=== PATIENT | female | born 1960 | race Caucasian/White ===

== ENCOUNTER → 2022-04-25 14:33 | Outpatient (CLI) | payer MEDICARE, SELFPAY ==
--- NOTE | 2022-04-25 14:40 | CT_ITS ---
FINAL REPORT CLINICAL HISTORY: H/O NICOTINE DEPENDENCE, smoker 1/2 ppd x 40 years. copd, emphysema. family hx of lung cancer FINDINGS: CTDI vol (mGy): 2.[address] images of the chest were obtained using the low-dose protocol for screening there are severe left coronary artery calcifications.. Bilateral axillary and mediastinal lymph nodes are seen which are nonspecific, favor reactive. On the lung window images, a 5 mm nodule seen is the right major fissure. Lungs are otherwise clear. IMPRESSION: 5 mm nodule near the right major fissure. Severe left coronary artery calcifications. Lung RADS category 2s. Recommend 12 month followup low-dose CT for further evaluation. Reviewed, Interpreted and Dictated by Mauricio Davidson III, MD Transcribed by Celina Bermudez Authenticated and [facility]
--- NOTE | 2022-04-25 14:41 | MM_ITS ---
PROCEDURE INFORMATION: Exam: Bilateral Screening 3D Mammography Exam date and time: 04/25/2022 3:18 PM Age: 61 years old Clinical indication: Screening examination. No family history of breast cancer. TECHNIQUE: Imaging protocol: Bilateral Screening tomosynthesis and 2D mammography including computer-aided detection (CAD) when performed. COMPARISON: No relevant prior studies available. If prior mammograms are provided, I am happy to add an addendum. FINDINGS: MAMMOGRAPHY: Breast composition: There are scattered areas of fibroglandular density. Mass: 0.8 cm oval masslike asymmetry in the right retro areolar region - only seen in the CC projection, which is related to the skin on the tomosynthesis sequences, CC frame 4 - at the inferior skin surface. A few scattered bilateral sub cm circumscribed oval masses. No suspicious mass. Architectural distortion: None. Calcifications: No suspicious calcifications. Asymmetric density: None. Skin thickening: None. Axillary adenopathy: None. IMPRESSION: See comment Probable skin finding related to the inferior skin surface of the right breast in the retroareolar region - if this does not correlate clinically, patient could be recalled for sonographic evaluation. Bilateral sub cm circumscribed masses which may be considered a benign finding on screening mammography. No mammographic evidence of malignancy. Annual screening is recommended unless otherwise clinically indicated. ASSESSMENT: BI-RADS Category 2: Benign
== END ==
PROVIDERS: PCP Family Medicine; Visit Provider Family Medicine
DX: Z87.891 Personal history of nicotine dependence (principal); Z12.2 Encounter for screening for malignant neoplasm of respiratory organs; Z12.31 Encounter for screening mammogram for malignant neoplasm of breast
CPT/HCPCS: 71271; 77063; 77067

== ENCOUNTER → 2022-05-07 15:16 | Outpatient (CLI) | payer MEDICARE, SELFPAY ==
[2022-05-07 17:14] LABS: Vitamin B12 238 pg/mL (239-931)
[2022-05-07 17:44] LABS: Ferritin 7.86 ng/ml (11.1-264)
== END ==
PROVIDERS: PCP Family Medicine; Visit Provider Specialist
DX: E83.10 Disorder of iron metabolism, unspecified (principal); R06.09 Other forms of dyspnea; R40.0 Somnolence
CPT/HCPCS: 36415; 82607; 82728

== ENCOUNTER → 2022-05-09 10:16 | Outpatient (CLI) | payer MEDICARE, SELFPAY ==
[2022-05-09 10:57] LABS: Basophils # 0.1 K/mm3 (0-0.2); Basophils % 1.1 % (0.1-2.0); Eosinophils # 0.2 K/mm3 (0.0-0.4); Eosinophils % 2.1 % (0.1-12.0); Hematocrit 39.4 % (37.0-47.0); Hemoglobin 12.4 g/dL (12.2-16.2); Lymphocytes # 1.8 K/mm3 (0.7-4.5); Lymphocytes % 23.3 % (10-50); Mean Corpuscular HGB Conc 31.3 g/dL (31.8-35.4); Mean Corpuscular Hemoglobin 31.7 pg (27.0-31.2); Mean Corpuscular Volume 101.3 fl (81-99); Mean Platelet Volume 7.7 fl (7.4-10.4); Monocytes # 0.5 K/mm3 (0.1-1.0); Monocytes % 6.4 % (1.7-9.3); Platelet Count 222 K/mm3 (142-424); Red Blood Count 3.89 M/mm3 (4.20-5.40); Red Cell Distribution Width 13.9 % (11.5-17.5); White Blood Count 7.5 K/mm3 (4.8-10.8)
[2022-05-09 12:02] LABS: Vitamin B12 236 pg/mL (239-931)
[2022-05-09 15:20] LABS: Ferritin 7.57 ng/ml (11.1-264)
== END ==
PROVIDERS: PCP Family Medicine; Visit Provider Specialist
DX: E83.10 Disorder of iron metabolism, unspecified (principal); R40.0 Somnolence
CPT/HCPCS: 36415; 82607; 82728; 83516; 85025; 86340

== ENCOUNTER → 2022-06-09 09:41 | Outpatient (CLI) | payer MEDICARE, SELFPAY ==
[2022-06-09 10:35] VITALS: PULSE 58; PULSE 62
== END ==
PROVIDERS: PCP Family Medicine; Visit Provider Internal Medicine Pulmonary Disease
DX: R06.09 Other forms of dyspnea (principal)
CPT/HCPCS: 94060; 94618; 94640; 94727; 94729

== ENCOUNTER → 2023-03-26 12:42 | Outpatient (CLI) | payer MEDICARE, SELFPAY ==
--- NOTE | 2023-03-26 13:27 | CT_ITS ---
FINAL REPORT TECHNIQUE: Axial CT images of the chest were obtained without contrast. Low-dose protocol was utilized. This study was performed with techniques to keep radiation doses as low as reasonably achievable (ALARA). Individualized dose reduction techniques using automated exposure control or adjustment of mA and/or kV according to the patient's size were employed. CLINICAL HISTORY: lung cancer screening current smoker 1ppd x45 years COMPARISON: 04/25/2022 FINDINGS: CT CHEST WITHOUT, LOW DOSE SCREENING CT Di Vol: 2.90 mGy DLP: 96.38 mGy*cm There are few small scattered mediastinal lymph nodes. Precarinal lymph node measures up to 1.5 cm. Findings are similar to the prior study. The heart size is normal. There is no pleural or pericardial effusion. The lung windows show a stable 5 mm nodule along the right major fissure best seen on image 41 of series 3. Limited images of the upper abdomen demonstrate no acute findings. IMPRESSION: Stable right major fissure nodule. LR Category 2: 12 month follow-up low-dose chest CT is recommended. Reviewed, Interpreted and Dictated by Jimenez Martin MD Transcribed by Taty Hartman Authenticated and [facility]
== END ==
PROVIDERS: PCP Family Medicine; Visit Provider Internal Medicine Pulmonary Disease
DX: F17.210 Nicotine dependence, cigarettes, uncomplicated (principal); R06.02 Shortness of breath; Z12.2 Encounter for screening for malignant neoplasm of respiratory organs
CPT/HCPCS: 71271; 94060

== ENCOUNTER → 2023-05-11 11:04 | Outpatient (CLI) | payer MEDICARE, SELFPAY ==
--- NOTE | 2023-05-11 11:13 | XR_ITS ---
FINAL REPORT CLINICAL HISTORY: LEFT SIDED LOW BACK PAIN FINDINGS: AP, lateral, and oblique views of the lumbar spine were obtained. There is no acute fracture. There is grade 2 anterolisthesis of L5 on S1. Alignment is otherwise normal. There is multilevel degenerative disc disease, most pronounced at L5-S1.. No acute paraspinal abnormality is identified. IMPRESSION: No acute osseous abnormalities lumbar spine. Reviewed, Interpreted and Dictated by Shania Gan MD Transcribed by Celina Bermudez Authenticated and [facility]
== END ==
PROVIDERS: PCP Family Medicine; Visit Provider Family Medicine
DX: M54.50 Low back pain, unspecified (principal)
CPT/HCPCS: 72110

== ENCOUNTER → 2023-06-04 14:52 | Outpatient (CLI) | payer MEDICARE, SELFPAY ==
--- NOTE | 2023-06-04 15:01 | MM_ITS ---
PROCEDURE INFORMATION: Exam: MG Bilateral Screening 3D Mammography Exam date and time: 06/04/2023 2:53 PM Age: 62 years old Clinical indication: Screening examination TECHNIQUE: Imaging protocol: Bilateral Screening tomosynthesis and 2D mammography including computer-aided detection (CAD) when performed. COMPARISON: MG MM DIG SCREENING MAMM BI W/CAD 04/25/2022 3:18 PM FINDINGS: MAMMOGRAPHY: Breast composition: There are scattered areas of fibroglandular density. Mass: None. Architectural distortion: None. Calcifications: No suspicious calcifications. Asymmetric density: None. Skin thickening: None. Axillary adenopathy: None. IMPRESSION: No mammographic evidence of malignancy. Annual screening is recommended unless otherwise clinically indicated. ASSESSMENT: BI-RADS Category 1: Negative
== END ==
PROVIDERS: PCP Family Medicine; Visit Provider Family Medicine
DX: Z12.31 Encounter for screening mammogram for malignant neoplasm of breast (principal)
CPT/HCPCS: 77063; 77067

== ENCOUNTER 2023-07-30 08:44 | Outpatient (CLI) | payer MEDICARE, SELFPAY ==
--- NOTE | 2023-07-30 08:51 | US_ITS ---
FINAL REPORT CLINICAL HISTORY: ABNORMAL LIVER COMPARISON: None FINDINGS: Sonographic images of the right upper quadrant were obtained. The pancreas is partially obscured. The liver is slightly inhomogeneous in echotexture, which is likely related to focal fatty infiltration. The gallbladder has been surgically resected. There is no evidence of biliary ductal dilatation.The common duct measures 3 mm. Limited images of the right kidney are unremarkable. IMPRESSION: Gallbladder surgically resected without evidence of biliary ductal dilatation. Focal fatty infiltration of the liver. Reviewed, Interpreted and Dictated by Jimenez Martin MD Transcribed by Shirlene Smith Authenticated and [facility]
== END 2023-07-30 23:59 ==
LOC: RAD 08:45
PROVIDERS: PCP Family Medicine; Visit Provider Family Medicine
DX: K76.89 Other specified diseases of liver (principal)
CPT/HCPCS: 76705

== ENCOUNTER 2023-08-21 14:30 | Outpatient (CLI) | payer MEDICARE, SELFPAY ==
[2023-08-21 15:41] LABS: Alanine Aminotransferase 86 U/L (12-78); Albumin/Globulin Ratio 1.4 (1.1-1.8); Alkaline Phosphatase 90 U/L (38-126); Anion Gap 9.9 mEq/L (5-15); Aspartate Amino Transferase 71 U/L (14-36); Bilirubin,Total 0.7 mg/dl (0.2-1.3); Blood Urea Nitrogen 12 mg/dl (7-17); Calcium 9.2 mg/dl (8.4-10.2); Carbon Dioxide 27 mmol/L (22.0-30.0); Chloride 108 mmol/L (98-107); Estimated Glomerular Filt Rate 56 ml/min (>60); GFR (African American) 68 ML/MIN (>60); Globulin 2.9 g/dL (1.3-3.2); Glucose 79 mg/dl (74-100); Potassium 4.9 mmoL/L (3.5-5.1); Sodium 140 mmol/L (136-145); Total Protein,Serum 6.9 g/dl (6.3-8.2)
== END 2023-08-21 23:59 ==
LOC: LAB.DROPOF 14:31
PROVIDERS: PCP Nurse Practitioner Family; Visit Provider Nurse Practitioner Family
DX: R74.8 Abnormal levels of other serum enzymes (principal)
CPT/HCPCS: 80053

== ENCOUNTER 2023-10-26 11:15 | Outpatient (CLI) | payer MEDICARE, SELFPAY ==
[2023-10-26 11:44] LABS: Basophils # 0.1 K/mm3 (0-0.2); Basophils % 0.9 % (0.1-2.0); Eosinophils # 0.2 K/mm3 (0.0-0.4); Hematocrit 41.6 % (37.0-47.0); Hemoglobin 13.4 g/dL (12.2-16.2); Lymphocytes % 34.2 % (10-50); Mean Corpuscular HGB Conc 32.3 g/dL (31.8-35.4); Mean Corpuscular Hemoglobin 33.8 pg (27.0-31.2); Mean Corpuscular Volume 104.7 fl (81-99); Mean Platelet Volume 8.7 fl (7.4-10.4); Monocytes # 0.4 K/mm3 (0.1-1.0); Monocytes % 7.2 % (1.7-9.3); Neutrophils # 3.1 K/mm3 (1.8-7.8); Neutrophils % 54.8 % (37.0-80.0); Platelet Count 159 K/mm3 (142-424); Red Blood Count 3.98 M/mm3 (4.20-5.40); Red Cell Distribution Width 13.3 % (11.5-17.5); White Blood Count 5.7 K/mm3 (4.8-10.8)
[2023-10-26 11:52] LABS: Prothrombin Time 10.8 seconds (10.1-12.5)
[2023-10-26 12:19] LABS: Chloride 112 mmol/L (98-107)
[2023-10-26 12:20] LABS: Potassium 3.9 mmoL/L (3.5-5.1); Sodium 141 mmol/L (136-145)
[2023-10-26 12:22] LABS: Alanine Aminotransferase 29 U/L (12-78); Alkaline Phosphatase 63 U/L (38-126); Anion Gap 3.9 mEq/L (5-15); Aspartate Amino Transferase 36 U/L (14-36); Bilirubin,Total 0.7 mg/dl (0.2-1.3); Blood Urea Nitrogen 10 mg/dl (7-17); Carbon Dioxide 29 mmol/L (22.0-30.0); Estimated Glomerular Filt Rate 63 ml/min (>60); GFR (African American) 77 ML/MIN (>60); Iron 99 ug/dL (37-170)
[2023-10-26 12:23] LABS: Albumin Level 3.3 g/dl (3.5-5.0); Albumin/Globulin Ratio 1.2 (1.1-1.8); Globulin 2.7 g/dL (1.3-3.2); Glucose 87 mg/dl (74-100)
[2023-10-26 12:32] LABS: Total Iron Binding Capacity 269 ug/dL (265-497)
[2023-10-26 12:58] LABS: Ferritin 47.5 ng/ml (11.1-264)
[2023-10-26 13:20] LABS: Gamma Glutamyl Transpeptidase 23 U/L (12-43)
[2023-10-27 08:33] LABS: AFP, Tumor Marker <1.8 ng/mL (0.0-9.2); Alpha-1-Antitrypsin 147 mg/dL (101-187); Ceruloplasmin 24.7 mg/dL (19.0-39.0); HBsAg Screen Negative (Negative); HCV Ab Non Reactive (Non Reactive); Hep A Ab, IGM Negative (Negative); Hep B Core Ab, IgM Negative (Negative)
[2023-10-27 14:46] LABS: Endomysial IgA Antibody Negative (Negative); Mitochondrial (M2) Antibody <20.0 Units (0.0-20.0)
[2023-10-27 15:10] LABS: Deamidated Gliadin Abs, IgA 6 units (0-19); Deamidated Gliadin Abs, IgG 4 units (0-19); Tissue Transglutaminase IgA Ab 2 U/mL (0-3); Tissue Transglutaminase IgG Ab 4 U/mL (0-5)
[2023-10-29 10:42] LABS: Reticulin IgA Antibody Negative titer (Neg:<1:2.5)
[2023-11-03 16:12] LABS: Liver-Kidney Microsomal Ab 1.4 Units (0.0-20.0)
== END 2023-10-26 23:59 | disposition home or self-care (01) ==
LOC: LAB 11:16
PROVIDERS: PCP Nurse Practitioner Family; Visit Provider Nurse Practitioner
DX: R74.8 Abnormal levels of other serum enzymes (principal); E83.10 Disorder of iron metabolism, unspecified; D64.9 Anemia, unspecified; R10.11 Right upper quadrant pain; R93.2 Abnormal findings on diagnostic imaging of liver and biliary tract
CPT/HCPCS: 36415; 80053; 82103; 82105; 82390; 82728; 82977; 83516; 83540; 83550; 85025; 85610; 86038; 86255; 86256; 86376

== ENCOUNTER 2023-11-10 13:18 | Outpatient (CLI) | payer MEDICARE, SELFPAY ==
[2023-11-10 13:33] LABS: Hemoglobin A1C 5.1 % (4.0-6.0)
[2023-11-10 13:58] LABS: Chol/HDL Ratio 3.8 (1-3.5); Cholesterol 180 mg/dl (140-200); HDL Cholesterol 47 mg/dl (40-60); Triglycerides 188 mg/dl (30-150); VLDL Cholesterol 38 mg/dL (0-40)
[2023-11-10 14:16] LABS: Free T4 (Free Thyroxine) 1.26 ng/dl (0.78-2.19)
[2023-11-10 14:30] LABS: Thyroid Stimulating Hormone 1.01 uIU/mL (0.465-4.68)
[2023-11-10 14:49] LABS: Vitamin B12 468 pg/mL (239-931)
[2023-11-10 16:31] LABS: Ferritin 47.8 ng/ml (11.1-264)
[2023-11-11 09:09] LABS: Triiodothyronine (T3) Free 2.6 pg/mL (2.0-4.4)
[2023-11-13 19:45] LABS: Intrinsic Factor Abs, Serum 16.8 AU/mL (0.0-1.1)
== END 2023-11-10 23:59 | disposition home or self-care (01) ==
LOC: LAB.DROPOF 13:19
PROVIDERS: PCP Nurse Practitioner Family; Visit Provider Nurse Practitioner Family
DX: E03.9 Hypothyroidism, unspecified (principal); E78.5 Hyperlipidemia, unspecified; R73.9 Hyperglycemia, unspecified; M81.0 Age-related osteoporosis without current pathological fracture; R82.90 Unspecified abnormal findings in urine; D50.9 Iron deficiency anemia, unspecified; Z79.899 Other long term (current) drug therapy
CPT/HCPCS: 80061; 82306; 82607; 82728; 83036; 84439; 84443; 84481; 86340; 87086; 87088; 87186

== ENCOUNTER 2023-11-18 09:08 | Outpatient (CLI) | payer MEDICARE, SELFPAY ==
--- NOTE | 2023-11-18 09:09 | CT_ITS ---
FINAL REPORT TECHNIQUE: Axial CT images of the abdomen and pelvis were obtained before and after the administration of IV contrast. This study was performed with techniques to keep radiation doses as low as reasonably achievable (ALARA). Individualized dose reduction techniques using automated exposure control or adjustment of mA and/or kV according to the patient''s size were employed. CLINICAL HISTORY: eval morph liver and spleen COMPARISON: None FINDINGS: Abdomen: The lung bases are clear. The heart is normal in size. The liver has an unremarkable appearance, without evidence of mass or biliary duct dilatation. Postcholecystectomy. The spleen is unremarkable. No adrenal masses present. The pancreas has an unremarkable appearance. The kidneys enhance normally. There is no evidence of mass or hydronephrosis. The aorta is normal in caliber. There is no free fluid or adenopathy. No mass or abnormal fluid collection is seen. There are scattered sigmoid diverticula. Precontrast images demonstrate no evidence of nephrolithiasis. Pelvis: The appendix is not well visualized. Bladder wall thickening is likely inflammatory. There is no evidence of mass or adenopathy. There is no evidence of bowel obstruction. There are bilateral L5 pars defects with grade 2 anterolisthesis of L5 and S1. IMPRESSION: Likely inflammatory bladder wall thickening. Unremarkable liver and spleen. Reviewed, Interpreted and Dictated by Mauricio Davidson III, MD Transcribed by Taty Hartman Authenticated and [facility]
[2023-11-18] MEDS: SODIUM CHLORIDE 0.9% 10ML SYR (RAD ONLY) 10 ML IV (09:36)
[2023-11-18] MEDS: IOPAMIDOL-370 (76%);100ML BOTTLE 75 ML IV (09:36)
== END 2023-11-18 23:59 | disposition home or self-care (01) ==
LOC: RAD 09:09
PROVIDERS: PCP Nurse Practitioner Family; Visit Provider Nurse Practitioner
DX: R74.8 Abnormal levels of other serum enzymes (principal); E83.10 Disorder of iron metabolism, unspecified; R10.11 Right upper quadrant pain
CPT/HCPCS: 74178; Q9967

== ENCOUNTER 2023-11-24 13:57 | Outpatient (CLI) | payer MEDICARE, SELFPAY ==
--- NOTE | 2023-11-24 13:57 | MR_ITS ---
FINAL REPORT CLINICAL HISTORY: dizziness WHEN TURNING HEAD O THE RIGHT WHEN LAYING DOWN. FALL AND LANDED ON LEFT SIDE OF FACE. FINDINGS: Multi planar MR imaging was obtained through the brain without contrast. The midline structures appear intact. There is no evidence of Chiari malformation. There is mild atrophy which is greater than expected for patient's age. On diffusion-weighted images there is no evidence of restricted diffusion. There is mild mucoperiosteal thickening in the paranasal sinuses consistent with chronic sinusitis.. The seventh and eighth nerve root complexes are intact. IMPRESSION: Atrophy, greater than expected for patient's age. Chronic sinusitis. Reviewed, Interpreted and Dictated by Jimenez Martin MD Transcribed by Yuliana Ivey Authenticated and . [facility]
== END 2023-11-24 23:59 | disposition home or self-care (01) ==
LOC: RAD 13:57
PROVIDERS: PCP Nurse Practitioner Family; Visit Provider Nurse Practitioner Family
DX: R42 Dizziness and giddiness (principal); H93.12 Tinnitus, left ear
CPT/HCPCS: 70551

== ENCOUNTER 2023-12-14 09:10 | Outpatient (CLI) | payer MEDICARE, SELFPAY ==
--- NOTE | 2023-12-14 09:10 | XR_ITS ---
FINAL REPORT CLINICAL HISTORY: osteoporosis COMPARISON: None FINDINGS: Using L1-4, the bone mineral density of the spine is 0.825 g/cm2, corresponding to T-score of -2.0 which is consistent with low bone density. Using the left hip, the bone mineral density of the femoral neck is 0.599 g/cm2, corresponding to a T-score of -2.3 which is consistent with low bone density. Using the right hip, the bone mineral density of the femoral neck is 0.617 g/cm2, corresponding to a T-score of -2.1 which is consistent with low bone density. FRAX 10 year fracture risk is 3.2% for a hip fracture and 33% for a major osteoporotic fracture. NOTE: T-score: Standard deviation compared with peak bone mass of young adult mean. *Following the recommendations of the International Society of Bone densitometry, classification of hip BMD is based on the lower of two T-scores; total hip or femoral neck. IMPRESSION: Diminished bone mineral density consistent with low bone density. Reviewed, Interpreted and Dictated by Mauricio Davidson III, MD Transcribed by Taty Hartman Authenticated and . [facility]
== END 2023-12-14 23:59 | disposition home or self-care (01) ==
LOC: RAD 09:10
PROVIDERS: PCP Nurse Practitioner Family; Visit Provider Nurse Practitioner Family
DX: M81.0 Age-related osteoporosis without current pathological fracture (principal)
CPT/HCPCS: 77080

== ENCOUNTER 2024-01-27 12:07 | Outpatient (CLI) | payer MEDICARE, SELFPAY ==
--- NOTE | 2024-01-27 12:26 | XR_ITS ---
FINAL REPORT CLINICAL HISTORY: right shoulder pain, decreased ROM FINDINGS: Right shoulder THREE VIEW FINDINGS: Three views show no evidence of an acute, displaced fracture or dislocation of the visualized bony architecture. The joint spaces appear normal. Osteopenia is noted. IMPRESSION: Unremarkable exam. Authenticated and [facility]
--- NOTE | 2024-01-27 12:26 | XR_ITS ---
FINAL REPORT CLINICAL HISTORY: pain FINDINGS: Right hand 2nd digit THREE VIEW FINDINGS: Three views show no evidence of an acute, displaced fracture or dislocation of the visualized bony architecture. Advanced DIP degenerative joint disease is present. Moderate degenerative changes of the PIP joint are present. Osteopenia is noted. There is no erosion. IMPRESSION: Degenerative changes. No acute bony abnormality . Authenticated and [facility]
[2024-01-27 13:23] LABS: Erythrocyte Sedimentation Rate 39 mm/hr (0-30)
[2024-01-27 13:56] LABS: Uric Acid 7.1 mg/dl (2.5-6.2)
[2024-01-29 09:46] LABS: RA Latex Turbid. <10.0 IU/mL (<14.0)
[2024-02-22 15:33] LABS: Antinuclear Antibodies, IFA POSITIVE
== END 2024-01-27 23:59 | disposition home or self-care (01) ==
LOC: LAB 12:09
PROVIDERS: PCP Nurse Practitioner Family; Visit Provider Nurse Practitioner Family
DX: M25.50 Pain in unspecified joint (principal); M25.511 Pain in right shoulder; M25.611 Stiffness of right shoulder, not elsewhere classified; M79.644 Pain in right finger(s)
CPT/HCPCS: 36415; 73030; 73140; 84550; 85651; 86038; 86431

== ENCOUNTER 2024-02-04 11:07 | Day surgery (SDC) | payer MEDICARE, SELFPAY ==
[2024-02-02 15:55] VITALS: BMI 31.1
[2024-02-04 11:27] VITALS: BP 139/85; PULSE 77; RESP 18; TEMP 36.6; O2SAT 97; BMI 31.1
--- NOTE | 2024-02-04 11:42 | P.PNANES_ITS ---
[facility] Disclaimer: The information contained in this section may have been updated after the patient was seen, as this information can be updated by other users. Medical History History of gout History of osteoporosis History of myocardial infarction Leaky heart valve Smoking greater than 30 pack years Lung nodule Allergic rhinitis Pulmonary emphysema Allergic rhinitis COPD mixed type Pulmonary emphysema Tobacco abuse disorder Tobacco abuse counseling Screening for lung cancer Dyspnea on exertion History of sleep apnea Daytime somnolence Lung nodule seen on imaging study COPD mixed type Dyspnea on exertion Smoking greater than 30 pack years Surgical History History of ovarian resection History of esophagogastroduodenoscopy (EGD) History of colonoscopy History of cardiac cath History of cholecystectomy Family History Mother Emphysema of lung Grandmother Cancer Leukemia Grandfather Cancer Esophageal Ca Social History Smoking Status: Former smoker smoking status stop date: 01/30/2023 alcohol intake: former substance use type: denies use current occupational status: disabled Travel in the last 8 weeks: None caffeine: Yes high-fat food intake: 3 or more times/day physical activity: walking do you feel safe at home: Yes victim of physical abuse: No victim of emotional abuse: No victim of sexual abuse: No would you like helpful sources: No [facility] Anesthesia Checklist Patient Identification Patient Identification: Arm Band Structural Data Admitted From: Home Planned Operative Procedure/s: EGD Consent for Planned Operative Procedure(s) Verified: Yes Verified Documents: Surgical Consent and History and Physical NPO Status Verified Time NPO: 00:00 Additional verifications Anesthesia Reactions: No Airway Assessment Mallampati Score:: Class II C-Spine Mobility Assessed: Yes TMJ Mobility Assessed: Yes Dentition: Good Dentition (upper dentures removed) Neurological Assessment Level of Consciousness: Awake, Alert and Appropriate Anesthesia Plan Anesthesia Risk discussed: Yes Anesthesia Plan: Verified ASA Class: III Anesthesia Type: MAC
[2024-02-04 11:43] VITALS: O2SAT 97
[2024-02-04 12:00] VITALS: BP 121/71; PULSE 76; RESP 16; TEMP 36.9; O2SAT 96
[2024-02-04 12:10] VITALS: BP 120/77; PULSE 78; RESP 18; O2SAT 96
[2024-02-04 12:20] VITALS: BP 128/79; PULSE 69; RESP 18; O2SAT 96
[2024-02-04 12:30] VITALS: BP 123/83; PULSE 69; RESP 18; O2SAT 96
--- NOTE | 2024-02-18 08:38 | HMH.SCOPE ---
Procedure: Date: 02/04/24 Patient Date of :: 1960 Procedure Performed:: EGD, biopsies, dilation Indications:: Dyspepsia, dysphagia Performing Provider:: Shawnee Terrazas MD Referring Provider:: Samantha Terrazas APRN Sedation:: Propofol Procedure:: The gastroscope was gently passed through the incisoral orifice into the oral cavity and under direct visualization the esophagus was intubated. The endoscope was passed down the esophagus, through the stomach, and into the duodenum. Color, texture, mucosa, and anatomy of the esophagus, stomach, and duodenum were carefully examined with the scope. Findings:: Oropharynx: normal Esophagus: normal, emperic dilation performed with 58F bougie dilator EG Junction: intact at 40 cm Cardia: normal Fundus: normal Body: normal Antrum: normal with mild gastritis, biopsied Duodenal bulb: normal Duodenum (second and third portion): normal Impression: Nonspecific antral gastritis Dysphagia treated with bougie dilation Specimens:: Gastric Recommendations:: Consider repeat dilation in the future if symptoms recur Complications:: None Estimated blood obtained (mL): 0 Colonoscopy Component Colonoscopy Component Was a colonoscopy performed during today's procedure?: No
== END 2024-02-04 12:30 | disposition home or self-care (01) ==
PROVIDERS: PCP Nurse Practitioner Family; Visit Provider Internal Medicine Gastroenterology
PROC: 0DJ08ZZ Inspection of Upper Intestinal Tract, Via Natural or Artificial Opening Endoscopic (ICD-10-PCS; CPT 43235; principal; 2024-02-04 12:00)
DX: R10.13 Epigastric pain (principal); R13.10 Dysphagia, unspecified; K29.50 Unspecified chronic gastritis without bleeding
CPT/HCPCS: 43239; 43450; 88305

== ENCOUNTER 2024-02-08 13:02 | Outpatient (CLI) | payer MEDICARE, SELFPAY ==
[2024-02-08 14:49] LABS: Thyroid Stimulating Hormone 5.83 uIU/mL (0.465-4.68)
[2024-02-09 08:54] LABS: Triiodothyronine (T3) Free 2.4 pg/mL (2.0-4.4)
== END 2024-02-08 23:59 | disposition home or self-care (01) ==
LOC: LAB.DROPOF 13:02
PROVIDERS: PCP Nurse Practitioner Family; Visit Provider Nurse Practitioner Family
DX: E03.9 Hypothyroidism, unspecified (principal); M25.50 Pain in unspecified joint; M10.9 Gout, unspecified; R42 Dizziness and giddiness
CPT/HCPCS: 84443; 84481; 84550

== ENCOUNTER 2024-02-12 08:02 | Outpatient (CLI) | payer MEDICARE, SELFPAY ==
--- NOTE | 2024-02-12 08:03 | MR_ITS ---
FINAL REPORT CLINICAL HISTORY: Right shoulder pain, decreased ROM COMPARISON: None FINDINGS: Multiplanar MR imaging of the right shoulder was performed without contrast. There is a focal tear of the anterior footprint of the supraspinatus tendon measuring 8 mm in AP dimension. There is a partial tear of the articular surface of the infraspinatus tendon less than 50% tendon thickness. Mild AC joint arthropathy is noted. A small amount of fluid is seen in the subacromial/subdeltoid bursa. The glenoid labrum is intact. The long head of the biceps tendon is intact. A small glenohumeral joint effusion is seen. There is no evidence of fracture or dislocation. The musculature is intact. Subchondral cysts are noted in the superior humeral head. IMPRESSION: Focal tear supraspinatus tendon. Partial tear infraspinatus tendon. Small amount of fluid in the bursa. Small joint effusion. Subchondral cysts in the superior humeral head. Reviewed, Interpreted and Dictated by Mauricio Davidson III, MD Transcribed by Taty Hartman Authenticated and [facility]
== END 2024-02-12 23:59 | disposition home or self-care (01) ==
LOC: RAD 08:03
PROVIDERS: PCP Nurse Practitioner Family; Visit Provider Nurse Practitioner Family
DX: M25.611 Stiffness of right shoulder, not elsewhere classified (principal); M25.511 Pain in right shoulder
CPT/HCPCS: 73221

== ENCOUNTER 2024-02-25 09:30 | Outpatient (CLI) | payer MEDICARE, SELFPAY ==
[2024-02-25 09:45] VITALS: BP 109/69; PULSE 62; RESP 16; O2SAT 97
[2024-02-25] MEDS: DENOSUMAB 60 MG/ML SYRINGE SQ (09:45)
== END 2024-02-25 10:00 | disposition home or self-care (01) ==
PROVIDERS: PCP Nurse Practitioner Family; Visit Provider Nurse Practitioner Family
DX: M81.0 Age-related osteoporosis without current pathological fracture (principal)
CPT/HCPCS: 96372; J0897

== ENCOUNTER 2024-03-09 16:53 | Outpatient (CLI) | payer MEDICARE, SELFPAY ==
[2024-03-09 18:17] LABS: Alanine Aminotransferase 57 U/L (12-78); Albumin Level 3.8 g/dl (3.5-5.0); Albumin/Globulin Ratio 1.3 (1.1-1.8); Alkaline Phosphatase 69 U/L (38-126); Anion Gap 9.7 mEq/L (5-15); Aspartate Amino Transferase 56 U/L (14-36); Bilirubin,Total 0.5 mg/dl (0.2-1.3); Blood Urea Nitrogen 12 mg/dl (7-17); Calcium 9.1 mg/dl (8.4-10.2); Carbon Dioxide 27 mmol/L (22.0-30.0); Chloride 108 mmol/L (98-107); Estimated Glomerular Filt Rate 63 ml/min (>60); GFR (African American) 76 ML/MIN (>60); Glucose 58 mg/dl (74-100); Potassium 4.7 mmoL/L (3.5-5.1); Sodium 140 mmol/L (136-145); Total Protein,Serum 6.8 g/dl (6.3-8.2)
[2024-03-09 18:27] LABS: Free T4 (Free Thyroxine) 0.92 ng/dl (0.78-2.19)
[2024-03-09 18:32] LABS: T4 (Thyroxine) 10.9 ug/dl (5.53-11.0)
[2024-03-09 19:05] LABS: Vitamin B12 551 pg/mL (239-931)
[2024-03-09 19:31] LABS: Ferritin 44.3 ng/ml (11.1-264)
[2024-03-11 13:11] LABS: Triiodothyronine (T3) Free 2.3 pg/mL (2.0-4.4)
== END 2024-03-09 23:59 | disposition home or self-care (01) ==
LOC: LAB.DROPOF 16:53
PROVIDERS: PCP Nurse Practitioner Family; Visit Provider Nurse Practitioner Family
DX: R79.89 Other specified abnormal findings of blood chemistry (principal); E03.9 Hypothyroidism, unspecified; D64.9 Anemia, unspecified; K74.00 Hepatic fibrosis, unspecified
CPT/HCPCS: 80053; 82607; 82728; 84436; 84439; 84443; 84481

== ENCOUNTER 2024-03-28 12:43 | Outpatient (CLI) | payer MEDICARE, SELFPAY ==
--- NOTE | 2024-03-28 12:44 | CT_ITS ---
FINAL REPORT TECHNIQUE: Axial CT images of the chest were obtained without contrast. Low-dose protocol was utilized. This study was performed with techniques to keep radiation doses as low as reasonably achievable (ALARA). Individualized dose reduction techniques using automated exposure control or adjustment of mA and/or kV according to the patient's size were employed. CLINICAL HISTORY: lung cancer screening former smoker quit 1 year ago, 2ppd for 47 years hx emphysema COMPARISON: 03/26/2023 FINDINGS: CT CHEST WITHOUT, LOW DOSE SCREENING CT Di Vol: 2.90 mGy DLP: 94.55 mGy*cm There is no axillary, mediastinal, or hilar adenopathy. The heart size is normal. Advanced calcified plaque disease is noted of the left coronary vessels. There is no pleural or pericardial effusion. The lung windows show stable appearance of the right lung intrafissural nodule which likely represents a lymph node. No suspicious pulmonary lesions are identified. Limited images of the upper abdomen demonstrate no acute findings. IMPRESSION: LR Category 2S: 12 month follow-up low-dose chest CT is recommended per Fleischner criteria. Modifier S: Left coronary vessel calcified plaque disease. Reviewed, Interpreted and Dictated by Vadim Louise MD Transcribed by Taty Hartman Authenticated and [facility]
== END 2024-03-28 23:59 | disposition home or self-care (01) ==
LOC: RAD 12:44
PROVIDERS: PCP Nurse Practitioner Family; Visit Provider Internal Medicine Pulmonary Disease
DX: F17.210 Nicotine dependence, cigarettes, uncomplicated (principal)
CPT/HCPCS: 71271

== ENCOUNTER 2024-04-07 11:37 | Outpatient (CLI) | payer MEDICARE, SELFPAY ==
[2024-04-07 13:21] LABS: Cholesterol 126 mg/dl (140-200); HDL Cholesterol 42 mg/dl (40-60); Triglycerides 264 mg/dl (30-150); VLDL Cholesterol 53 mg/dL (0-40)
[2024-04-07 13:32] LABS: Direct LDL Cholesterol 44.02 mg/dL (100-129)
== END 2024-04-07 23:59 | disposition home or self-care (01) ==
LOC: LAB 11:44
PROVIDERS: PCP Nurse Practitioner Family
DX: I25.10 Atherosclerotic heart disease of native coronary artery without angina pectoris (principal); E78.2 Mixed hyperlipidemia; E78.5 Hyperlipidemia, unspecified
CPT/HCPCS: 36415; 80061

== ENCOUNTER 2024-05-05 08:15 | Outpatient (CLI) | payer MEDICARE, SELFPAY ==
--- NOTE | 2024-05-05 08:15 | CT_ITS ---
PROCEDURE INFORMATION: Exam: CT Maxillofacial Without Contrast, Sinus Exam date and time: 05/05/2024 8:16 AM Age: 63 years old Clinical indication: Sinusitis; Chronic; Additional info: Chronic sinusitis TECHNIQUE: Imaging protocol: CT Maxillofacial without contrast. Focus on the sinuses. Radiation optimization: All CT scans at this facility use at least one of these dose optimization techniques: automated exposure control; mA and/or kV adjustment per patient size (includes targeted exams where dose is matched to clinical indication); or iterative reconstruction. COMPARISON: MR HEAD/BRAIN WO CON 11/24/2023 2:34 PM FINDINGS: Frontal sinuses: No air-fluid levels. Ethmoid sinuses: No air-fluid levels. Sphenoid sinuses: No air-fluid levels. Maxillary sinuses: There is minor polypoid mucosal thickening noted in the floor the left maxillary antrum. The ostiomeatal units are obstructed bilaterally. Nasal cavity: There is a rightward convexity deviation of the nasal septum. Orbital cavities: Orbits are normal. Globes are unremarkable. Bones: Unremarkable. Soft tissues: Unremarkable. IMPRESSION: Paranasal sinus disease as described. Deviation of nasal septum.
== END 2024-05-05 23:59 | disposition home or self-care (01) ==
LOC: RAD 08:15
PROVIDERS: PCP Nurse Practitioner Family; Visit Provider Specialist
DX: H81.10 Benign paroxysmal vertigo, unspecified ear (principal); J32.9 Chronic sinusitis, unspecified
CPT/HCPCS: 70486

== ENCOUNTER 2024-06-09 10:55 | Outpatient (POV) | payer MEDICARE, SELFPAY | END 2024-06-09 23:59 | disposition home or self-care (01) | LOC: SC 10:56 | PROVIDERS: Visit Provider Specialist/Technologist | DX: Z00.00 Encounter for general adult medical examination without abnormal findings (principal) ==

== ENCOUNTER 2024-06-21 16:10 | Outpatient (CLI) | payer MEDICARE, SELFPAY ==
[2024-06-21 13:43] LABS: Alanine Aminotransferase 47 U/L (12-78); Albumin Level 4.1 g/dl (3.5-5.0); Albumin/Globulin Ratio 1.5 (1.1-1.8); Alkaline Phosphatase 59 U/L (38-126); Aspartate Amino Transferase 55 U/L (14-36); Bilirubin,Total 0.6 mg/dl (0.2-1.3); Blood Urea Nitrogen 13 mg/dl (7-17); Calcium 9.4 mg/dl (8.4-10.2); Carbon Dioxide 27 mmol/L (22.0-30.0); Chloride 106 mmol/L (98-107); Estimated Glomerular Filt Rate 56 ml/min (>60); GFR (African American) 68 ML/MIN (>60); Globulin 2.7 g/dL (1.3-3.2); Glucose 88 mg/dl (74-100); Sodium 140 mmol/L (136-145); Total Protein,Serum 6.8 g/dl (6.3-8.2)
[2024-06-21 13:58] LABS: T4 (Thyroxine) 11.1 ug/dl (5.53-11.0)
[2024-06-21 15:31] LABS: Anion Gap 11.6 mEq/L (5-15); Potassium 4.6 mmoL/L (3.5-5.1)
[2024-06-21 17:23] LABS: Vitamin B12 712 pg/mL (239-931)
[2024-06-22 08:48] LABS: Triiodothyronine (T3) Free 2.6 pg/mL (2.0-4.4)
== END 2024-06-21 23:59 | disposition home or self-care (01) ==
LOC: LAB.DROPOF 16:11
PROVIDERS: PCP Nurse Practitioner Family; Visit Provider Nurse Practitioner Family
DX: K76.0 Fatty (change of) liver, not elsewhere classified (principal); R74.8 Abnormal levels of other serum enzymes; E03.9 Hypothyroidism, unspecified; D50.9 Iron deficiency anemia, unspecified; E53.8 Deficiency of other specified B group vitamins
CPT/HCPCS: 80053; 82607; 82728; 84436; 84443; 84481

== ENCOUNTER 2024-07-13 11:54 | Outpatient (CLI) | payer MEDICARE, SELFPAY ==
--- NOTE | 2024-07-13 12:07 | XR_ITS ---
FINAL REPORT CLINICAL HISTORY: right shoulder pain COMPARISON: 01/27/2024 FINDINGS: RIGHT SHOULDER Three views demonstrate no acute fracture or dislocation. The visualized joint spaces are normally aligned. The soft tissues are unremarkable. IMPRESSION: No acute process. Reviewed, Interpreted and Dictated by Jimenez Martin MD Transcribed by Taty Hartman Authenticated and [facility]
== END 2024-07-13 23:59 | disposition home or self-care (01) ==
LOC: RAD 11:56
PROVIDERS: PCP Nurse Practitioner Family; Visit Provider Orthopaedic Surgery
DX: M25.511 Pain in right shoulder (principal)
CPT/HCPCS: 73030

== ENCOUNTER 2024-08-05 15:00 | Outpatient (RCR) | payer MEDICARE, SELFPAY ==
--- NOTE | 2024-07-25 11:19 | HMH.OTOPEV ---
OT Inpatient Evaluation Rehab OT Outpatient Eval Start: 07/25/24 10:46 Freq: Status: Active Protocol: Document 07/25/24 10:46 BEVERLYRANDEE (Rec: 07/25/24 11:15 ILYA [id number]) E-signed By Divya Power, OT Outpatient Therapy Subjective History Subjective History 63 year old female referred to skilled OP OT services for R shld pain. Patient reported injuring the R shoulder back in November 2023 after wrestling her 3 year old grandchild. Patient has received an x-ray and MRI to the R shld. X-rays: 2 view x-rays of the right shoulder demonstrate mild to moderate degenerative changes of the glenohumeral joint. The humeral head is well-positioned in the glenoid fossa with no evidence of high riding humerus. There is sclerosing over the anterior aspect of the glenoid rim. The AC joint demonstrates some mild arthropathy. No fractures bony lesions or tumors are noted of the right humerus. Otherwise remainder of x-ray of the right shoulder is noncontributory. MRI of February 2024 and straits a focal tear measuring 8 mm in AP dimension at the anterior footprint of the supraspinatus tendon. There is a less than 50% tendon thickness partial tear of the infraspinatus tendon. Small amount of fluid in the bursa. Small joint effusion noted. Subchondral cyst in the superior humeral head. Otherwise remainder of MRI is noncontributory. Patient has a f/u with ortho within the next month. Patient has agreed to 2x/wk for 4 weeks for OP OT services to address R shld pain with partial tear of the infraspinatus. Chief Complaint Pain Symptom Type Ache Symptoms Relieved By Nothing Symptoms Aggravated By Bending/Stooping Prior Functional Limitations None Current Functional Limitations Reaching,Lifting,Sleeping Symptom Description Constant and Continuous Level of pain today (0-10) 0 Pain scale - at its best (0-10) 0 Pain scale - at its worst (0-10) 6 Shoulder/Elbow Eval Shoulder Objective Measurements Shoulder ROM Right Shoulder Abduction Active Range of 100 Motion (degrees) Shoulder Abduction Passive Range of 150 Motion (degrees) Shoulder Flexion Active Range of Motion 90 (degrees) Query Text: Shoulder Flexion Passive Range of Motion 150 (degrees) Shoulder External Rotation Active Range 60 of Motion (degrees) Shoulder External Rotation Passive Range 80 of Motion (degrees) Shoulder Internal Rotation Active Range 60 of Motion (degrees) Shoulder Internal Rotation Passive Range 70 of Motion (degrees) pain with active ROM shoulder exam right standard Shoulder MMT Upper Trapezius/Levator Scapulae 3+ Fair+ Shoulder Abduction Strength Grade 4- Good- Shoulder Extension Strength Grade 3+ Fair+ Shoulder Flexion Strength Grade 3+ Fair+ Shoulder Horizontal Abduction Strength 3+ Fair+ Grade Shoulder Horizontal Adduction Strength 3+ Fair+ Grade Infraspinatus/Teres Minor Strength Grade 3+ Fair+ Shoulder External Rotation Strength 3+ Fair+ Grade Shoulder Internal Rotation Strength 3+ Fair+ Grade Elbow Objective Measurements QuickDASH Activities Please rate your ability to do the following activities in the last week by selecting the number below the appropriate response. 1. Open a tight or new jar. Severe difficulty 2. 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 3. Carry a shopping bag or briefcase. Mild difficulty 4. Wash your back. Severe difficulty 5. Use a knife to cut food. No difficulty 6. Recreational activities in which you Severe difficulty take some force or impact through your arm, shoulder, or hand (e.g., golf, hammering, tennis, etc.). 7. During the past week, to what extent Moderately has your arm, shoulder or hand problem interfered with your normal social activities with family, friends, neighbors or groups? 8. During the past week, were you Slightly limited limited in your work or other regular daily activites as a result of your arm, shoulder or hand problem? 9. Arm, shoulder or hand pain. Mild 10. Tingling (pins and needles) in your None arm, shoulder or hand. 11. During the past week, how much Moderate difficulty difficulty have you had sleeping because of the pain in your arm, shoulder or hand? Quick DASH 30 OT Outpatient Assessment Impairments Problems/Impairments Impaired Range of Motion, Impaired Strength,Subjective C /O Pain Prognosis Rehab Potential Good Clinical Impression Consistent with Diagnosis Yes Short Term Goals Number of Weeks 2 Increase Range of Motion Yes: Improve AROM of R UE shld flex: 120; abd: 120; er: 70; ir: 65 Increase Strength Yes: Improve R UE shld strength to 3+ to 4-/5 throughout Decrease Subjective C/O Pain Yes: 5/10 pain at worst Patient to be Ind w/ HEP Yes: AAROM Patient to be Ind w/ Advanced HEP Yes: Strengthening Improve Quick Dash Score Yes: 25 Bartacker Goals Number of Weeks 4 Increase Range of Motion Yes: Improve AROM of R UE shld flex: 140; abd: 140; er: 80; ir: 70 Increase Strength Yes: Improve R UE shld strength to 4-/5 to 4/5 throughout Decrease Subjective C/O Pain Yes: 4/10 pain at worst Patient to be Ind w/ HEP Yes: AROM Patient to be Ind w/ Advanced HEP Yes: Advance strengthening Improve Quick Dash Score Yes: 20 Outpatient Therapy Plan of Care Treatment Plan May Include Therapeutic Exercise Including Home Yes Exercise Program Manual Therapy Techniques Yes Therapeutic Activities to Return to Yes Previous Functional/Work Level Thermal Modalities Yes Electrical Stimulation Yes Ultrasound/Phonophoresis Yes Iontophoresis Yes Eval/Re-Eval Yes Aquatic Therapy Yes Frequency Times per week 2x/wk Duration Number of Weeks 4 weeks Addendums This patient is a candidate for social No or vocational rehab? Patient/Guardian verbally acknowledges Yes understanding of treatment program and consents to further treatment? Patient/Guardian verbally acknowledges Yes understanding of diagnosis, prognosis and goals for treatment? Eval Complexity OT Charge 63696 - Low Complexity PHYSICIAN CERTIFICATION: I certify the specified therapy services for Tayla Pulliam are required, authorized, and reviewed every 30 days.
== END 2024-08-05 23:59 | disposition home or self-care (01) ==
LOC: OT 15:00
PROVIDERS: Visit Provider Physician Assistant
DX: M25.511 Pain in right shoulder (principal); M75.101 Unspecified rotator cuff tear or rupture of right shoulder, not specified as traumatic
CPT/HCPCS: 97014; 97110; 97140; 97165; G0283

== ENCOUNTER 2024-08-31 09:49 | Outpatient (CLI) | payer MEDICARE, SELFPAY ==
[2024-08-31 09:53] VITALS: BP 114/66; PULSE 53; RESP 18; TEMP 36.7; O2SAT 100
[2024-08-31] MEDS: DENOSUMAB 60 MG/ML SYRINGE SUBCUT (09:54)
== END 2024-08-31 10:00 | disposition home or self-care (01) ==
LOC: INF 09:50
PROVIDERS: PCP Nurse Practitioner Family; Visit Provider Nurse Practitioner Family
DX: M81.0 Age-related osteoporosis without current pathological fracture (principal)
CPT/HCPCS: 96372; J0897

== ENCOUNTER 2024-11-21 11:05 | Outpatient (CLI) | payer MEDICARE, SELFPAY ==
--- NOTE | 2024-11-21 11:00 | MM_ITS ---
PROCEDURE INFORMATION: Exam: MG Bilateral Screening 3D Mammography Exam date and time: 11/21/2024 11:08 AM Age: 63 years old Clinical indication: Screening examination TECHNIQUE: Imaging protocol: Bilateral Screening tomosynthesis and 2D mammography including computer-aided detection (CAD) when performed. COMPARISON: 1. MG MM DIG SCREENING MAMM BI W/CAD 06/04/2023 2:53 PM 2. MG MM DIG SCREENING MAMM BI W/CAD 04/25/2022 3:18 PM FINDINGS: MAMMOGRAPHY: Breast composition: There are scattered areas of fibroglandular density. Mass: None. Architectural distortion: None. Calcifications: No suspicious calcifications. Asymmetric density: None. Skin thickening: None. Axillary adenopathy: None. IMPRESSION: No mammographic evidence of malignancy. Annual screening is recommended unless otherwise clinically indicated. ASSESSMENT: BI-RADS Category 1: Negative.
== END 2024-11-21 23:59 | disposition home or self-care (01) ==
LOC: RAD 11:06
PROVIDERS: PCP Nurse Practitioner Family; Visit Provider Nurse Practitioner Family
DX: Z12.31 Encounter for screening mammogram for malignant neoplasm of breast (principal); R92.313 Mammographic fatty tissue density, bilateral breasts
CPT/HCPCS: 77063; 77067

== ENCOUNTER 2025-01-31 15:26 | Outpatient (CLI) | payer MEDICARE, SELFPAY ==
--- OUTSIDE RECORDS SUMMARY | 2024-12-14 08:45 | XMS_ITS | Encounter Summary ---
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 Supervisor Name Role Phone Mandie Meng APRN Primary Care Provider + [phone] Reason for Visit * Reason Comments Osteoarthritis Follow up Abnormal Lab Follow up Encounter Details Date Type Department Care Team (Latest Contact Info) Description 12/14/2024 8:45 AM EDT Office Visit [facility] RHEUMATOLOGY [address] [phone] Wilner Fish DO [address] [address] Primary osteoarthritis involving multiple joints (Primary Dx); HUE positive Social History Tobacco Use Types Packs/Day Years Used Date Smoking Tobacco: Former Cigarettes Q uit: 01/30/2023 Smokeless Tobacco: Never Alcohol Use Standard Drinks/Week Comments No 0 (1 standard drink = 0.6 oz pur e alcohol) AUDIT-C Answer Date Recorded Q1: How often do you have a drink containing alc ohol? Never 05/30/2020 Average Number of Drinks Not on file 020 Frequency of Binge Drinking Not on file 05/07 PHQ-2 Answer Date Recorded Patient Health Questionnaire-2 Score 1 08/26/2024 Comments Unknown Sex and Gender Information Value Date Recorded Sex Assigned at Female 01/14/2024 4:36 PM EDT Legal Sex Female 2:10 PM EDT Gender Identity Female 01/14/2024 4:36 PM EDT Sexual Orientation Not on file documented as of this encounter Last Filed Vital Signs Vital Sign Reading Time Taken Comments Blood Pressure 110/70 12/14/2024 8:49 AM EDT Pulse 56 12/14/2024 8:49 AM EDT Temperature 36.6 C (97.8 F) 12/14/2024 8:49 AM EDT Respiratory Rate - - Oxygen Saturation - - Inhaled Oxygen Concentration - - Weight 89 kg (196 lb 4.8 oz) 12/14/2024 8:49 AM EDT Height 170.2 cm (5' 7.01 ) 12/14/2024 8:49 AM ED T Body Mass Index 30.74 12/14/2024 8:49 AM EDT documented in this encounter Patient Instructions * Attachments The following attachments cannot be sent through Care Everywhere. * Osteoarthritis (Norwegian) documented in this encounter Progress Notes * Wilner Fish DO - 12/14/2024 8:45 AM EDTAssociated Problem(s): Primary osteoarthritis involving multiple joints 02/08/24: Uric acid 8.0, TSH 5.83 (0.465-4.68), T3 normal 01/27/24: ESR 39 (0-30), RF negative, HUE 1:1280 homogenous 01/27/24 right shoulder x-rays were normal 02/12/24 MRI right shoulder showed a focal tear in the supraspinatus tendon. Partial tear of the infraspinatus tendon. Small amount of fluid in the bursa. Small joint effusion. Subchondral cysts in thehumeral head. 07/14/24: HUE +, Chromatin +, + Thyroid antibody test, + Beta 2 glycoprotein test Medication/treatment/interventions tried include: Tylenol, indomethacin, colchicine, she has seen cardiology, She has seen hematology, she has seen endocrinology Tylenol PRN is ok as directed She has tried NSAIDS like indomethacin PRN We gave her a handout on OA to review. Follow up with us as needed * Wilner Fish DO - 12/14/2024 8:45 AM EDT Images from the original note were not included. Office Follow Up Date: 12/14/2024 Patient Name: Tayla Pulliam Date of : 1960 Referring Physician: No ref. provider found Chief Complaint Patient presents with Osteoarthritis Follow up Abnormal Lab Follow up History of Present Illness: Tayla Pulliam is a 63 y.o. female who is here today for follow up.She established care with us as of 07/14/24. She had a high positive beta 2 glycoprotein test and a +HUE. We referred her to hematology. One of her thyroid antibody tests was also positive. She is on levothyroxine. Her dose has been adjusted to 150 mcg/day. Her autoimmune evaluation was otherwise unremarkable. Today she rates her pain as 8/10 in severity. She has 5 minutes/day of morning stiffness. No red orhot joints. No swelling. She has muscle pain. No muscle weakness. No back or neck issues. No rash. She has dry skin. No hair loss. She bruises easily. No lymphadenopathy. No headaches or paresthesias. No GI or issues. No chest pain or shortness of breath. No sicca symptoms. She is fatigued. Subjective Review of Systems Constitutional: Positive for fatigue. HENT: Positive for drooling. Eyes: Positive for itching. Respiratory: Negative. Cardiovascular: Negative. Gastrointestinal: Negative. Endocrine: Positive for cold intolerance and heat intolerance. Genitourinary: Negative. Musculoskeletal: Positive for myalgias. Skin: Positive for dry skin and bruise. Allergic/Immunologic: Positive for environmental allergies. Neurological: Negative. Hematological: Bruises/bleeds easily. Psychiatric/Behavioral: Negative. All other systems reviewed and are negative. Current Outpatient Medications: albuterol sulfate HFA 108 (90 Base) MCG/ACT inhaler, Inhale 2 puffs Every 6 (Six) Hours As Needed.,Disp: , Rfl: aspirin 81 MG EC tablet, Take 1 tablet by mouth Daily., Disp: , Rfl: B Complex Vitamins (VITAMIN B COMPLEX PO), Take 1 tablet by mouth Daily., Disp: , Rfl: Calcium Carb-Cholecalciferol 600-12.5 MG-MCG capsule, Take 1 capsule by mouth Daily., Disp: , Rfl: colestipol (COLESTID) 1 g tablet, Take 1 tablet by mouth 2 (Two) Times a Day., Disp: , Rfl: CYANOCOBALAMIN IJ, Inject 1,000 mcg as directed Every 30 (Thirty) Days., Disp: , Rfl: denosumab (Prolia) 60 MG/ML solution prefilled syringe syringe, Inject 1 mL under the skin into theappropriate area as directed Every 6 (Six) Months., Disp: , Rfl: famotidine (PEPCID) 40 MG tablet, Take 1 tablet by mouth Daily., Disp: , Rfl: ferrous sulfate 140 (45 Fe) MG tablet controlled-release tablet, Take 1 tablet by mouth Daily With Breakfast., Disp: , Rfl: fluticasone (FLONASE) 50 MCG/ACT nasal spray, Administer 2 sprays into the nostril(s) as directed by provider Daily As Needed for Rhinitis or Allergies., Disp: , Rfl: Inclisiran Sodium (Leqvio) 284 MG/1.5ML solution prefilled syringe, Inject 1.5 mL under the skin into the appropriate area as directed Every 6 (Six) Months., Disp: 1.5 mL, Rfl: 0 Inclisiran Sodium (Leqvio) 284 MG/1.5ML solution prefilled syringe, Inject 1.5 mL under the skin into the appropriate area as directed Every 6 (Six) Months., Disp: 1.5 mL, Rfl: 0 levocetirizine (XYZAL) 5 MG tablet, Take 1 tablet by mouth Every Evening., Disp: , Rfl: levothyroxine (SYNTHROID, LEVOTHROID) 150 MCG tablet, Take 1 tablet by mouth Daily., Disp: , Rfl: metoprolol tartrate (LOPRESSOR) 25 MG tablet, Take 1 tablet by mouth 2 (Two) Times a Day., Disp: 180 tablet, Rfl: 3 montelukast (SINGULAIR) 10 MG tablet, Take 1 tablet by mouth Every Night., Disp: , Rfl: nitroglycerin (NITROSTAT) 0.4 MG SL tablet, DISSOLVE ONE TABLET UNDER THE TONGUE EVERY 5 MINUTES ASNEEDED FOR CHEST PAIN. DO NOT EXCEED A TOTAL OF 3 DOSES IN 15 MINUTES, Disp: 25 tablet, Rfl: 3 ranolazine (RANEXA) 500 MG 12 hr tablet, Take 1 tablet by mouth twice daily, Disp: 180 tablet, Rfl:3 spironolactone (ALDACTONE) 25 MG tablet, Take 1 tablet by mouth once daily, Disp: 90 tablet, Rfl: 3 sucralfate (CARAFATE) 1 g tablet, Take 1 tablet by mouth 4 (Four) Times a Day., Disp: , Rfl: Allergies Allergen Reactions Pineapple Itching Latex Rash Penicillins Hives I have reviewed and updated the patient's chief complaint, history of present illness, review of systems, past medical history, surgical history, family history, social history, medications and allergy list as appropriate. Objective Vitals: 12/14/24 0849 BP: 110/70 BP Location: Right arm Patient Position: Sitting Cuff Size: Adult Pulse: 56 Temp: 97.8 ??F (36.6 ??C) Weight: 89 kg (196 lb 4.8 oz) Height: 170.2 cm (67.01 ) PainSc: 8 Body mass index is 30.74 kg/m??. Physical Exam General: Well appearing 63 year old female. Not in distress. She is ambulating unassisted. SKIN: No rashes. No alopecia. No subcutaneous nodules. No digital pits or ulcers. No sclerodactyly.+ Tattoo. [id number] HEENT: NCAT. Conjunctiva clear, no photophobia. No oral or nasal ulcers. Hearing intact. Pulmonary: Clear to auscultation bilaterally. No wheezing, rales, or rhonchi. CV: Regular rate and rhythm. No murmurs, rubs, or gallops. Psych: Normal mood and affect. Alert and oriented x 3. Extremities: No cyanosis or edema. + varicose veins. Musculoskeletal: No joint swelling or tenderness to palpation. No warmth or erythema. Normal range of motion of the wrists, ankles, elbows, and knees. Lymph: No palpable cervical adenopathy Procedures Assessment / Plan Assessment & Plan Primary osteoarthritis involving multiple joints 02/08/24: Uric acid 8.0, TSH 5.83 (0.465-4.68), T3 normal 01/27/24: ESR 39 (0-30), RF negative, HUE 1:1280 homogenous 01/27/24 right shoulder x-rays were normal 02/12/24 MRI right shoulder showed a focal tear in the supraspinatus tendon. Partial tear of the infraspinatus tendon. Small amount of fluid in the bursa. Small joint effusion. Subchondral cysts in thehumeral head. 07/14/24: HUE +, Chromatin +, + Thyroid antibody test, + Beta 2 glycoprotein test Medication/treatment/interventions tried include: Tylenol, indomethacin, colchicine, she has seen cardiology, She has seen hematology, she has seen endocrinology Tylenol PRN is ok as directed She has tried NSAIDS like indomethacin PRN We gave her a handout on OA to review. Follow up with us as needed HUE positive She established care with us as of 07/14/24. She had a high positive beta 2 glycoprotein test and a +HUE. We referred her to hematology She saw Dr. Montana Goldberg One of her thyroid antibody tests was also positive. She is on levothyroxine. Her dose has been adjusted to 150 mcg/day. She is seeing endocrinology Her autoimmune evaluation was otherwise unremarkable. She has been concerned that she might have lupus Her DS DNA test, Helm test, etc. Were fine. I do not think she has lupus. Follow Up: Return if symptoms worsen or fail to improve. Wilner Fish DO [facility] documented in this encounter Plan of Treatment Upcoming Encounters Date Type Department Care Team (Late st Contact Info) Description 04/26/2025 1:30 PM EDT Office Visit [facility] CARDIOLOGY [address] [place] [phone] Cabrera Phillips PA [address] [place] [phone] 05/12/2025 12:00 PM EST Appointment [facility] CARDIOLOGY [address] [phone] 05/26/2025 9:30 AM EST Office Visit [facility] HEMATOLOGY & ONCOLOGY [address] [facility] [address] [place] [phone] Montana Goldberg MD [address] [facility] [address] [place] [address] documented as of this encounter Goals Goal Patient Goal Type Associated Problems Recent Progress Patient-Stated? Author Specialty Pharmacy General Goal General On track(11/19/19 11:40 AM EDT) Airam Anand, PharmD Note: LDL less than 55 11/18/24 BELINDA: LDL at goal at 44 on 04/07/24 documented as of this encounter Visit Diagnoses Diagnosis Primary osteoarthritis involving multiple joints- Primary HUE positive documented in this encounter Care Teams Gas Meter Repair Supervisor Relationship Specialty Start Date End Date Mandie Meng APRN [facility] [address] [facility] [id number] PCP - General Internal Medicine 09/16/23 documented as of this encounter
--- OUTSIDE RECORDS SUMMARY | 2025-01-20 10:40 | XMS_ITS | Encounter Summary ---
Author Organization [facility] Address [address] 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 Jim Sierra MD [address] [address] Phone: tel: fax: Referral ID Status Reason Start Date Expiration Date V isits Requested Visits Authorized [id number] Authorized 01/20/2025 07/22/2026 1 1 Reason for Visit * Consultation (Routine) - Closed Specialty Diagnoses / Procedures Referred By Vianey riojas Referred To Contact Diagnoses 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 Jim Sierra MD [address] [address] Phone: tel: fax: Referral ID Status Reason Start Date Expiration Date Visits Re quested Visits Authorized [id number] Closed 10/07/2024 04/08/2026 1 1 Encounter Details Date Type Department Care Team (Late st Contact Info) Description 01/20/2025 10:40 AM EDT Office Visit [facility] Endocrinology [address] [place] [id number] Jim Sierra MD [address] [place] [id number] 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) Social History Tobacco Use Types Packs/Day Years Used Date Smoking Tobacco: Former Cigarettes Q uit: 2022 Smokeless Tobacco: Never Tobacco Cessation:Counseling Given: Not Answered Alcohol Use Standard Drinks/Week Comments Not Currently 0 (1 standard drink = 0.6 oz pur e alcohol) PHQ-2 Answer Date Recorded Patient Health Questionnaire-2 Score 2 01/20/2025 PHQ-9 Answer Date Recorded Patient Health Questionnaire-9 Score 8 01/20/2025 Comments No Sex and Gender Information Value Date Recorded Sex Assigned at Female 07/18/2024 3:44 PM EST Legal Sex Female 7:54 PM EDT Gender Identity Female 07/18/2024 3:44 PM EST Sexual Orientation Not on file documented as of this encounter Last Filed Vital Signs Vital Sign Reading Time Taken Comments Blood Pressure 106/73 01/20/2025 10:39 AM EDT Pulse 67 01/20/2025 10:39 AM EDT Temperature - - Respiratory Rate - - Oxygen Saturation - - Inhaled Oxygen Concentration - - Weight 91.3 kg (201 lb 4.5 oz) 01/20/2025 10:39 AM EDT Height 170.2 cm (5' 7 ) 01/20/2025 10:39 AM EDT Body Mass Index 31.52 01/20/2025 10:39 AM EDT documented in this encounter Functional Status * Over the past 2 weeks, how often have you been bothered by any of the following problems? Question Answer Date of Assessment Author Little interest or pleasure in doing things Several days 01/20/2025 10:50 AM EDT Carolina Foote Feeling down, depressed, or hopeless Several days 01/20/2025 10:50 AM EDT Carolina Foote Patient Health Questionnaire -2 Score 2 01/20/2025 10:50 AM EDT Carolina Foote * Question Answer Date of Assessment Author Trouble falling or staying asleep, or sleeping too much Several days 01/20/2025 10:50 AM EDT aCrolina Foote Feeling tired or having little energy Nearly every day 01/20/2025 10:50 AM EDT Carolina Foote Poor appetite or overeating Several days 01/20/2025 10 :50 AM EDT Carolina Foote Feeling bad about yourself - or that you are a failure or have let yourself or your family down Several days 01/20/2025 10:50 AM EDT Carolina Foote Trouble concentrating on things, such as reading the newspaper or watching television Not at all 01/20/2025 10:50 AM EDT Carolina Foote Moving or speaking so slowly that other people could have noticed? Or the opposite - being so fidgety or restless that you have been moving around a lot more than usual. Not at all 01/20/2025 10:50 AM EDT Carolina Foote Thoughts that you would be better off or hurting yourself in some way Not at all 01/20/2025 10:50 AM EDT Carolina Foote Patient Health Questionnaire-9 Score 8 01/20/2025 10:50 AM EDT Carolina Foote documented as of this encounter Miscellaneous Notes * Patient Instructions - Jim Sierra MD - 01/20/2025 10:40 AM EDT It was a pleasure meeting you today! Let us reduce to the 125mcg Please get labs in middle to late March Please return to the clinic in 2.5 months * Progress Notes - Jim Sierra MD - 01/20/2025 10:40 AM EDT Subjective Tayla Pulliam is a 64 y.o. female here for follow up regarding hypothyroidism (diagnosed around age 24). Last visit: 10/2024 States she has been fatigue as busy with grand-kids Taking LT4 150 mcg daily; denied missed doses and taking > 4 hours from colestipol and sucralfate Previous HPI: C/o low energy C/o cold intolerance Denies constipation C/o dry skin Denies hair loss Post-menopausal C/o some mood swings Patient denies difficulty in swallowing, shortness of breath, change in voice. Denies any family h/o thyroid cancer. Denies any history of thyroid surgery/thyroid ablation/thyroid imaging. Review of systems: All systems were reviewed and were negative except for the ones mentioned in HPI above Past Medical History: Nonobstructive coronary artery disease, hypothyroidism, hypertension, hyperlipidemia, GERD, s/p cholecystectomy Family History: family history is not on file. Allergies: Allergies Allergen Reactions Penicillins Hives and Rash Pineapple Itching Latex Rash Tobacco: no Objective BP 106/73 Pulse 67 Ht 1.702 m (5' 7 ) Wt 91.3 kg (201 lb 4.5 oz) BMI 31.52 kg/m?? Constitutional: General: Not in acute distress. Appearance: Normal appearance. Not ill-appearing. HENT: Head: Normocephalic and atraumatic. Right Ear: External ear normal. Left Ear: External ear normal. Nose: Nose normal. Neck: Thyroid non-tender to palpation. No visible goiter. No appreciable thyroid nodules. Cardiovascular: Rate and Rhythm: Normal rate and regular rhythm to palpation. Pulses: Normal pulses. Pulmonary: Effort: Pulmonary effort is normal. No respiratory distress. No cyanosis Musculoskeletal: General: Normal range of motion. Cervical back: Normal range of motion. Neurological: General: No focal deficit present. Mental Status: He is alert and oriented to person, place, and time. Mental status is at baseline. Psychiatric: Mood and Affect: Mood normal. 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 She is now taking > 4 hours from LT4 which has led to improved absorption and reduced LT4 requirements PLAN: Reduce to LT4 125mcg daily Check TSH and FT4 in 8 weeks The care plan was discussed with the patient. All questions were answered. Patient verbalized understanding and agreed with the plan. Return to clinic in 2.5 months I personally spent a total of 33 minutes on this encounter. This time includes face to face with patient, counseling and discussion and/or coordination of care. Electronically signed by: Jim Sierra MD [facility] [address] [facility] [place]. 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
--- OUTSIDE RECORDS SUMMARY | 2025-01-31 15:29 | XMS_ITS | Encounter Summary ---
Author Organization [facility] Address [address] [place] [address] Care Team Providers Care Heel Turner Name Role Phone Mandie Meng APRN Primary Care Provider + [phone] Encounter Details Date Type Department Care Team (Latest Contact Info) Description 12/14/2024 Travel Social History Tobacco Use Types Packs/Day Years [...] on file documented as of this encounter Plan of Treatment Upcoming Encounters Date Type Department Care Team ( st Contact Info) Description 04/26/2025 1:30 PM EDT Office Visit [facility] CARDIOLOGY [address] [place] [address] Cabrera Phillips PA [address] [place] [address] 05/12/2025 12:00 PM EST Appointment [facility] CARDIOLOGY OF [address] [address] 05/26/2025 9:30 AM EST Office Visit [facility] HEM[facility] & ONCOLOGY [address] [facility] [address] [place] [address] Montana Goldberg MD [address] [facility] [address] [place] [address] documented as of this encounter Goals Goal Patient Goal Type Associated Problems Recent Progress Patient-Stated? Author Specialty Pharmacy General Goal General On track(11/19/19 11:40 AM EDT) Airam Anand, Drew Note: LDL less than 55 11/18/24 BELINDA: LDL at goal at 44 on 04/07/24 documented as of this encounter Visit Diagnoses Not on filedocumented in this encounter Care Teams Heel Turner Relationship Specialty Start Date End Date Mandie Meng APRN [address] [address] [place] [address] PCP - General Internal Medicine 09/16/23 documented as of this encounter
--- OUTSIDE RECORDS SUMMARY | 2025-01-31 15:29 | XMS_ITS | Encounter Summary ---
Author Organization [facility] Address [address] [place] [address] Care Team Providers Care Supervisor Dumping Name Role Phone Mandie Meng DIRECTOR PART Primary Care Provider +1- [phone] Encounter Details Date Type Department Care Team (Latest Contact Info) Description 01/11/2025 Travel Social History Tobacco Use Types Packs/Day Years Used Date Smoking Tobacco: Former Cigarettes Q uit: 2022 Smokeless Tobacco: Never Alcohol Use Standard Drinks/Week Comments Not Currently 0 (1 standard drink = 0.6 oz pur e alcohol) PHQ-2 Answer Date Recorded Patient Health Questionnaire-2 Score 0 10/07/2024 Comments Unknown Sex and Gender Information Value Date Recorded Sex Assigned at Female 07/18/2024 3:44 PM EST Legal Sex Female 7:54 PM EDT Gender Identity Female 07/18/2024 3:44 PM EST Sexual Orientation Not on file documented as of this encounter Plan of Treatment Upcoming Encounters Date Type Department Care Team (Late st Contact Info) Description 04/28/2025 9:40 AM EDT Office Visit [facility] Endocrinology [address] [place] [address] Jim Sierra MD [address] [facility] [address] [place] [address] documented as of this encounter Visit Diagnoses Not on filedocumented in this encounter Additional Health Concerns Assessment Noted Time A Body Mass Index follow-up plan has been documented for the patient 10/14/2024 9:16 AM EDT documented as of this encounter Care Teams Supervisor Dumping Relationship Specialty Start Date End Date Mandie Meng APRN [address] [place] [address] PCP - General 09/02/24 documented as of this encounter
--- OUTSIDE RECORDS SUMMARY | 2025-01-31 15:29 | XMS_ITS | Clinical Summary ---
[facility] Address [address] [place] [address] Care Team Providers Care Crop Grain Or Livestock Farm Manager Name Role Phone Mandie Meng APRN Primary Care Provider + [phone] Allergies Active Allergy Reactions Criticality Noted Date Comments Latex Rash Low 05/16/2019 Penicillins Hives Low 05/07/2011 Pineapple Itching 02/19/2024 Medications montelukast (SINGULAIR) 10 MG tablet Take 1 tablet by mouth Every Night. Active levocetirizine (XYZAL) 5 MG tablet Take 1 tablet by mouth Every Evening. Active sucralfate (CARAFATE) 1 g tablet Take 1 tablet by mouth 4 (Four) Times a Day. Active aspirin 81 MG EC tablet Take 1 tablet by mouth Daily. Active spironolactone (ALDACTONE) 25 MG tabletIndication s:Bilateral lower extremity edema Take 1 tablet by mouth once daily 90 tablet 3 2 Active B Complex Vitamins (VITAMIN B COMPLEX PO) Take 1 tablet by mouth Daily. Active ferrous sulfate 140 (45 Fe) MG tablet controlled-relea se tablet Take 1 tablet by mouth Daily With Breakfast. Active CYANOCOBALAMIN IJ Inject 1,000 mcg as directed Every 30 (Thirty) Days. Active colestipol (COLESTID) 1 g tablet Take 1 tablet by mouth 2 (Two) Times a Day. Active famotidine (PEPCID) 40 MG tablet Take 1 tablet by mouth Daily. Active denosumab (Prolia) 60 MG/ML solution prefilled syringe syringe Inject 1 mL under the skin into the appropriate area as directed Every 6 (Six) Months. Active fluticasone (FLONASE) 50 MCG/ACT nasal spray Administer 2 sprays into the nostril(s) as directed by provider Daily As Needed for Rhinitis or Allergies. Active Calcium Carb-Cholecalcif justino 600-12.5 MG-MCG capsule Take 1 capsule by mouth Daily. Active Inclisiran Sodium (Leqvio) 284 MG/1.5ML solution prefilled syringe Inject 1.5 mL under the skin into the appropriate area as directed Every 6 (Six) Months. 1.5 mL 11/18/2024 3:25 PM EDT 4 Active ranolazine (RANEXA) 500 MG 12 hr tabletIndication s:Precordial pain Take 1 tablet by mouth twice daily 180 tablet 3 4 Active levothyroxine (SYNTHROID, LEVOTHROID) 150 MCG tablet Take 1 tablet by mouth Daily. Active metoprolol tartrate (LOPRESSOR) 25 MG tabletIndication s:Precordial pain Take 1 tablet by mouth 2 (Two) Times a Day. 180 tablet 3 5 Active Inclisiran Sodium (Leqvio) 284 MG/1.5ML solution prefilled syringe Inject 1.5 mL under the skin into the appropriate area as directed Every 6 (Six) Months. 1.5 mL 5 Active nitroglycerin (NITROSTAT) 0.4 MG SL tabletIndication s:Chest pain, unspecified type DISSOLVE ONE TABLET UNDER THE TONGUE EVERY 5 MINUTES NEEDED FOR CHEST PAIN. DO NOT EXCEED A TOTAL OF 3 DOSES IN 15 MINUTES 25 tablet 3 5 Active albuterol sulfate HFA 108 (90 Base) MCG/ACT inhaler Inhale 2 puffs Every 6 (Six) Hours As Needed. 5 Active Active Problems Problem Noted Date Diagnosed Date Primary osteoarthritis involving multiple joints 07/14/2024 Assessment & Plan (12/14/2024 9:37 AM EDT): 02/08/24: Uric acid 8.0, TSH 5.83 (0.465-4.68), T3 normal 01/27/24: ESR 39 (0-30), RF negative, HUE 1:1280 homogenous 01/27/24 right shoulder x-rays were normal 02/12/24 MRI right shoulder showed a focal tear in the supraspinatus tendon. Partial tear of the infraspinatus tendon. Small amount of fluid in the bursa. Small joint effusion. Subchondral cysts in the humeral head. 07/14/24: HUE +, Chromatin +, + Thyroid antibody test, + Beta 2 glycoprotein test Medication/treatment/interventions tried include: Tylenol, indomethacin, colchicine, she has seen cardiology, She has seen hematology, she has seen endocrinology Tylenol PRN is ok as directed She has tried NSAIDS like indomethacin PRN We gave her a handout on OA to review. Follow up with us as needed Assessment & Plan (07/14/2024 2:23 PM EST): Tylenol PRN is ok as directed She has tried NSAIDS like indomethacin PRN Orders: 14.3.3 ETA, Rheum. Arthritis; Future HUE 12 Plus Profile (RDL); Future HUE by IFA, Reflex to Titer and Pattern; Future ANCA Panel; Future Beta-2 Glycoprotein Antibodies; Future CBC Auto Differential; Future CK; Future C-reactive Protein; Future Comprehensive Metabolic Panel; Future Cyclic Citrul Peptide Antibody, IgG / IgA; Future RF Isotypes, IgG, IgA, IgM EIA; Future Sedimentation Rate; Future Thyroid Antibodies; Future TSH+Free T4; Future Urinalysis With Culture If Indicated -; Future Aldolase; Future QuantiFERON-TB Gold Plus; Future Hepatitis Panel, Acute; Future Dyslipidemia 01/14/2024 Essential hypertension 01/29/2021 Shortness of breath 01/29/2021 Abnormal stress test 01/29/2021 CAD, multiple vessel 05/24/2020 Chest pain 03/30/2020 Lower extremity edema 03/30/2020 Palpitations 03/30/2020 Vertigo 03/02/2018 Gastroesophageal reflux disease without esophagi tis 02/23/2018 Benign paroxysmal positional vertigo 07/03/2017 Meniere's disease 07/03/2017 Mixed hyperlipidemia 02/11/2017 Vitamin D deficiency 02/11/2017 Encounters Date Type Department Care Team Description 12/14/2024 8:45 AM EDT Office Visit [facility] RHEUMATOLOGY [address] [address] Wilner Fish DO Primary osteoarthritis involving multiple joints (Primary Dx); HUE positive 12/14/2024 Travel 11/29/2024 Refill [facility] CARDIOLOGY [address] [place] [phone] Cabrera Phillips PA Med Refill 11/25/2024 11:30 AM EDT Office Visit [facility] HEMATOLOGY & ONCOLOGY [address] [facility] [address] [place] [phone] Montana Goldberg MD Venous insufficiency of both lower extremities (Primary Dx) 11/25/2024 Travel 11/18/2024 2:20 PM EDT Lab [facility] [address] [place] [address] Antiphospholipid antibody positive 11/18/2024 11:35 AM EDT - 11/18/2024 11:59 PM EDT Hospital Encounter [facility] CARDIOLOGY [address] [address] Discharge Disposition: Home or Self Care 11/18/2024 Travel from Last 3 Months Family History Medical History Relation Name Comments Throat cancer Maternal Grandfather Hyperlipidemia Sister Hypertension Sister Relation Name Status Comments Maternal Grandfather Mother Sister Alive Social History Tobacco Use Types Packs/Day Years Used Date Smoking Tobacco: Former Cigarettes Q uit: 01/30/2023 Smokeless Tobacco: Never Tobacco Cessation:Counseling Given: Not Answered Alcohol Use Standard Drinks/Week Comments No 0 [...] PM EDT Sexual Orientation Not on file Last Filed Vital Signs Vital Sign Reading Time Taken Comments Blood Pressure 110/70 12/14/2024 8:49 AM EDT Pulse 56 12/14/2024 8:49 AM EDT Temperature 36.6 C (97.8 F) 12/14/2024 8:49 AM EDT Respiratory Rate 18 11/25/2024 11:28 AM EDT Oxygen Saturation 96% 11/25/2024 11:28 AM EDT Inhaled Oxygen Concentration - - Weight 89 kg (196 lb 4.8 oz) 12/14/2024 8:49 AM EDT Height 170.2 cm (5' 7.01 ) 12/14/2024 8:49 AM ED T Body Mass Index 30.74 12/14/2024 8:49 AM EDT Plan of Treatment Upcoming Encounters Date Type Department Care Team (Late st Contact Info) Description 04/26/2025 1:30 PM EDT Office Visit [facility] CARDIOLOGY [address] [place] [phone] Cbarera Phillips PA [address] [place] [address] 05/12/2025 12:00 PM EST Appointment [facility] CARDIOLOGY [address] [phone] 05/26/2025 9:30 AM EST Office Visit [facility] HEMATOLOGY & ONCOLOGY [address] [phone] Montana Goldberg MD [address] [address] Health Maintenance Due Date Last Done Comments DXA SCAN 1959 MAMMOGRAM 1999 COLOGUARD 12/23/2004 COLON CANCER SCREENING 5 YEA R SIGMOIDOSCOPY 12/23/2004 COLONOSCOPY 12/23/2004 COLORECTAL CANCER SCREENING 12/23/2004 CT COLONOGRAPHY 12/23/2004 FECAL OCCULT BLOOD TEST 12/23/2004 FIT Testing (1 year) 12/23/2004 Pneumococcal Vaccine 50+ (1 of 1 - PCV) 12/23/2009 ZOSTER VACCINE (1 of 2) 12/23/2009 ANNUAL WELLNESS VISIT 05/16/2019 COVID-19 Vaccine (5 - 2023-2 5 season) 2024 12/19/2021, 07/03/2021, 10/19/2020, Additional history exists INFLUENZA VACCINE 04/05/2025 LIPID PANEL 07/14/2025 07/14/2024, 06/18/2021 TDAP/TD VACCINES (2 - Td or Tdap) 04/22/2028 018 HEPATITIS C SCREENING Completed 07/14/2024 Goals Goal Patient Goal Type Associated Problems Recent Progress Patient-Stated? Author Specialty Pharmacy General Goal General On track(11/19/19 11:40 AM EDT) Airam Anand, PharmD Note: LDL less than 55 11/18/24 BELINDA: LDL at goal at 44 on 04/07/24 Procedures Procedure Name Priority Date/Time Associated Diagnosis Comments ~DRVVT CONFIRM Routine 11/18/2024 2:19 PM EDT Antiphospholipid antibody positive ~DRVVT MIX Routine 11/18/2024 2:19 PM EDT Antiphospholipid antibody positive LUPUS ANTICOAGULANT Routine 11/18/2024 2 :19 PM EDT Antiphospholipid antibody positive ANTICARDIOLIPIN AB, IGG/M, QN Routine 11/18/2024 2:19 PM EDT Antiphospholipid antibody positive BETA-2 GLYCOPROTEIN ANTIBODIES Routine 11/18/2024 2:19 PM EDT Antiphospholipid antibody positive LIPID PANEL Routine 07/14/2024 2:46 PM EST CAD, multiple vessel Mixed hyperlipidemia Dyslipidemia HEPATITIS PANEL, ACUTE Routine 2:46 PM EST Arthralgia, unspecified joint Fatigue, unspecified type HUE positive Elevated sed rate Primary osteoarthritis involving multiple joints from Last 3 Months or Most Recently Relevant to Health Maintenance Results * (ABNORMAL) Reflexed DRVVT Mix (11/18/2024 2:19 PM EDT) [facility] Dilute Viper Venom 1:1 Mix 43.6(H) 0.0 - 40.4 sec 11/20/2024 12:08 PM EDT [facility] Blood Venipuncture / Unknown 11/18/2024 2:19 PM EDT 11/18/2024 2:19 PM EDT Narrative [facility] - 11/20/2024 12:08 PM EDT Performed at: [address] [place] [id number] Bonding Supervisor: Fariba Pedro MD, Phone: [phone] us Montana Goldberg MD LAB BLOOD ORDERABLES Final Resul t Performing Organization Address [facility] Co de Phone Number [facility] [address] [place] [address], [place] [phone] * (ABNORMAL) Reflexed DRVVT Confirm (11/18/2024 2:19 PM EDT) [facility] Dilute Viper Venom Time 1.4(H) 0.8 - 1.2 ratio 11/20/2024 12:08 PM EDT [facility] Blood Venipuncture / Unknown 11/18/2024 2:19 PM EDT 11/18/2024 2:19 PM EDT Narrative [facility] - 11/20/2024 12:08 PM EDT Performed at: [address] [place] [address] [id number] Bonding Supervisor: Fariba Pedro MD, Phone: [phone] us Montana Goldberg MD LAB BLOOD ORDERABLES Final Resul t Performing Organization Address [facility] Co de Phone Number [facility] [address] [place] [address], [place] [phone] * Anticardiolipin Antibody, IgG / M, Qn (11/18/2024 2:19 PM EDT) [facility] Anticardiolipin IgG 12 0 - 14 GPL U/mL 11/19/2024 4:10 PM EDT [facility] Comment: Negative: <15 Indeterminate: 15 - 20 Low-Med Positive: >20 - 80 High Positive: >80 Anticardiolipin IgM 12 0 - 12 MPL U/mL 11/19/2024 4:10 PM EDT [facility] Comment: Negative: <13 Indeterminate: 13 - 20 Low-Med Positive: >20 - 80 High Positive: >80 Blood Venipuncture / Unknown 11/18/2024 2:19 PM EDT 11/18/2024 2:19 PM EDT Narrative [facility] - 11/19/2024 4:10 PM EDT Performed at: [address] [place] [id number] Bonding Supervisor: Gutierrez Seymour PhD, Phone: [phone] Montana Goldberg MD LAB BLOOD ORDERABLES Final Resul t [facility] [address] [place] [address], * (ABNORMAL) Beta-2 Glycoprotein Antibodies (11/18/2024 2:19 PM EDT) [facility] Beta-2 Glyco 1 IgG <9 0 - 20 GPI IgG units 11/21/2024 2:09 PM EDT [facility] Comment: The reference interval reflects a 3SD or 99th percentile interval, which is thought to represent a potentially clinically significant result in accordance with the International Consensus Statement on the classification criteria for definitive antiphospholipid syndrome (APS). J Thromb Haem 2006;4:295-306. Beta-2 Glyco 1 IgA 110(H) 0 - 25 GPI IgA units 11/21/2024 2:09 PM EDT [facility] Comment: The reference interval reflects a 3SD or 99th percentile interval, which is thought to represent a potentially clinically significant result in accordance with the International Consensus Statement on the classification criteria for definitive antiphospholipid syndrome (APS). J Thromb Haem 2006;4:295-306. Beta-2 Glyco 1 IgM <9 0 - 32 GPI IgM units 11/21/2024 2:09 PM EDT [facility] Comment: The reference interval reflects a 3SD or 99th percentile interval, which is thought to represent a potentially clinically significant result in accordance with the International Consensus Statement on the classification criteria for definitive antiphospholipid syndrome (APS). J Thromb Haem 2006;4:295-306. Blood Venipuncture / Unknown 11/18/2024 2:19 PM EDT 11/18/2024 2:19 PM EDT Narrative [facility] - 11/21/2024 2:09 PM EDT Performed at: [address] [place] [id number] Bonding Supervisor: Gutierrez Seymour PhD, Phone: [phone] us Montana Goldberg MD LAB BLOOD ORDERABLES Final Resul t [facility] [address] [place] [address], * (ABNORMAL) Lupus Anticoagulant (11/18/2024 2:19 PM EDT) Dilute Prothrombin Time(dPT) 39.0 0.0 - 47.6 sec 11/20/2024 12:08 PM EDT [facility] dPT Confirm Ratio 1.23 0.00 - 1.34 Ratio 11/20/2024 12:08 PM EDT [facility] Thrombin Time 22.0 0.0 - 23.0 sec 11/20/2024 12:08 PM EDT [facility] PTT Lupus Anticoagulant 37.5 0.0 - 43.5 sec 11/20/2024 12:08 PM EDT [facility] Dilute Viper Venom Time 49.6(H) 0.0 - 47.0 sec 11/20/2024 12:08 PM EDT [facility] Lupus Anticoagulant Reflex Comment: 11/20/2024 12:08 PM EDT [facility] Comment: Results are consistent with the presence of a lupus anticoagulant. As only persistent lupus anticoagulant (LA) positivity meets laboratory diagnostic criteria for antiphospholipid syndrome, repeat testing in 12 or more weeks is recommended, ideally in the absence of anticoagulant therapy. Important Note: The results of LA testing are not valid for patients receiving heparin, direct Xa inhibitor (e.g., rivaroxaban, apixaban) or direct thrombin inhibitor (e.g., dabigatran) therapy. These drugs may cause false positive LA results but will not interfere with anticardiolipin and beta-2 glycoprotein 1 antibody testing. Blood Venipuncture / Unknown 11/18/2024 2:19 PM EDT 11/18/2024 2:19 PM EDT [facility] - 11/20/2024 12:08 PM EDT Performed at: [address] [place] [address] [id number] Bonding Supervisor: Fariba Pedro MD, Phone: [phone] Montana Goldberg MD LAB BLOOD ORDERABLES Final Resul t Performing Organization Address City/[facility]/ZIP Co de Phone Number [facility] [address] [place] [address], [place] [phone] * Hepatitis Panel, Acute (07/14/2024 2:46 PM EST) Hepatitis B Surface Ag Non-Reacti ve Non-Reacti ve 07/14/2024 11:58 PM EST [facility] Hep A IgM Non-Reacti ve Non-Reacti ve 07/14/2024 11:58 PM EST [facility] Hep B C IgM Non-Reacti ve Non-Reacti ve 07/14/2024 11:58 PM EST [facility] Hepatitis C Ab Non-Reacti ve Non-Reacti ve 07/14/2024 11:58 PM EST [facility] Blood Venipuncture / Unknown 07/14/2024 2:46 PM EST 07/14/2024 2:47 PM EST [facility] - 07/14/2024 11:58 PM EST Results may be falsely decreased if patient taking Biotin. Wilner Fish DO LAB BLOOD ORDERABLES F inal Result [facility]
[address] [place] [address], [place] [phone] * (ABNORMAL) Lipid Panel (07/14/2024 2:46 PM EST) Total Cholesterol 125 0 - 200 mg/dL 07/14/2024 11:54 PM EST [facility] Triglycerides 173(H) 0 - 150 mg/dL 07/14/2024 11:54 PM EST [facility] HDL Cholesterol 42 40 - 60 mg/dL 07/14/2024 11:54 PM EST [facility] LDL Cholesterol 54 0 - 100 mg/dL 07/14/2024 11:54 PM EST [facility] VLDL Cholesterol 29 5 - 40 mg/dL 07/14/2024 11:54 PM [facility] LDL/HDL Ratio 1.15 07/14/2024 11:54 PM EST [facility] Blood Venipuncture / Unknown 07/14/2024 2:46 PM EST 07/14/2024 2:47 PM EST [facility] - 07/14/2024 11:54 PM EST Cholesterol Reference Ranges (U.S. Department of Health and Human Services ATP III Classifications) Desirable <200 mg/dL Borderline High 200-239 mg/dL High Risk >240 mg/dL Triglyceride Reference Ranges (U.S. Department of Health and Human Services ATP III Classifications) Normal <150 mg/dL Borderline High 150-199 mg/dL High 200-499 mg/dL Very High >500 mg/dL HDL Reference Ranges (U.S. Department of Health and Human Services ATP III Classifications) Low <40 mg/dl (major risk factor for CHD) High >60 mg/dl ('negative' risk factor for CHD) LDL Reference Ranges (U.S. Department of Health and Human Services ATP III Classifications) Optimal <100 mg/dL Near Optimal 100-129 mg/dL Borderline High 130-159 mg/dL High 160-189 mg/dL Very High >189 mg/dL Cabrera RUEDA LAB BLOOD ORDERABLES Final R esult [facility]
[address] [place] [address], from Last 3 Months or Most Recently Relevant to Health Maintenance Insurance [facility] MEDICARE ADVANTAGE HMO Care Teams Crop Grain Or Livestock Farm Manager Relationship Specialty Start Date End Date Mandie Meng APRN [address] [place] [address] [place] [address] PCP - General Internal Medicine 09/16/23
--- OUTSIDE RECORDS SUMMARY | 2025-01-31 15:29 | XMS_ITS | Encounter Summary ---
Author Organization Healthcare Address [address] [place] [address] Care Team Providers Care Ware Tester Name Role Phone Mandie Meng JEANNETTE Primary Care Provider [phone]- [phone] Encounter Details Date Type Department Care Team (Latest Contact Info) Description 01/20/2025 Travel Social History Tobacco Use Types Packs/Day [...] on file documented as of this encounter Functional Status * Over the past 2 weeks, how often have you been bothered by any of the following problems? Question Answer Date of Assessment Author Little interest or pleasure in doing things Several days 01/20/2025 10:50 AM JIMMYT Carolina Foote Feeling down, depressed, or hopeless Several days 01/20/2025 10:50 AM JIMMYT [place] Foote Patient Health Questionnaire -2 Score 2 01/20/2025 10:50 AM JIMMYT [place] Foote * Question Answer Date of [...] Carolina Foote documented as of this encounter Plan of Treatment Upcoming Encounters Date Type Department Care Team (Late st Contact Info) Description 04/28/2025 9:40 AM EDT Office Visit [facility] Endocrinology [address] [place] [address] Jim Sierra MD [address] [facility] [address] [place] [address] documented as of this encounter [...] documented as of this encounter Care Teams Ware Tester Relationship Specialty Start Date End Date Mandie Meng APRN [address] [place] [address] PCP - General 09/02/24 documented as of this encounter
--- OUTSIDE RECORDS SUMMARY | 2025-01-31 15:29 | XMS_ITS | Encounter Summary ---
Author Organization [facility] Address [address] [place] [address] Care Team Providers Care Cover Remover Name Role Phone Mandie Meng APRN Primary Care Provider +1- [phone] Encounter Details Date Type Department Care Team (Late st Contact Info) Description 01/11/2025 Results Follow-Up [facility] Specialty Care Clinic [facility] [address] [place] [address] Jim Sierra MD [address] [facility] [address] [place] [address] Social History Tobacco Use Types Packs/Day Years [...] Description 04/28/2025 9:40 AM EDT Office Visit [facility] Endocrinology [address] [place] [address] Jim Sierra MD [address] [place] [facility] [address] [place] [address] documented as of this encounter Visit Diagnoses Not on filedocumented in this encounter Additional Health Concerns Assessment Noted Time A Body Mass Index follow-up plan has been documented for the patient 10/14/2024 9:16 AM EDT documented as of this encounter Care Teams Cover Remover Relationship Specialty Start Date End Date Mandie Meng APRN [address] [place] [address] PCP - General 09/02/24 documented as of this encounter
--- OUTSIDE RECORDS SUMMARY | 2025-01-31 15:29 | XMS_ITS | Encounter Summary ---
Author Organization [facility] Address [address] [place] [address] Care Team Providers Care Gas Station Operator Name Role Phone Mandie Meng APRN Primary Care Provider [phone]- [phone] Encounter Details Date Type Department Care Team (Late st Contact Info) Description 10/19/2024 Results Follow-Up [facility] Specialty Care Clinic [facility] [address] [place] [address] Jim Sierra MD [address] [facility] [address] [place] [address] Social History Tobacco Use Types [...] Description 04/28/2025 9:40 AM EDT Office Visit [facility] Endocrinology [address] [place] [address] Jim Sierra MD [address] [place] [facility] [address] [place] [address] documented as of this encounter Visit Diagnoses Not on filedocumented in this encounter Additional Health Concerns Assessment Noted Time A Body Mass Index follow-up plan has been documented for the patient 10/14/2024 9:16 AM EDT documented as of this encounter Care Teams Gas Station Operator Relationship Specialty Start Date End Date Mandie Meng APRN [address] [place] [address] PCP - General 09/02/24 documented as of this encounter
--- OUTSIDE RECORDS SUMMARY | 2025-01-31 15:29 | XMS_ITS ---
Author Organization [facility] Address [address] [id number] Care Team Providers Care Cork Sorter Name Role Phone Mandie Meng APRN Primary Care Provider + [phone] Hyperlipidemia Status:Enrolled (Active) Start date:02/19/2024 Enrollment date:02/19/2024 Enrollment reason:New start at Current support & services provided:Clinical Assessment, Refill Coordination , Benefits Investigation, [facility] Dispensing Linked medications:Inclisiran Sodium (Active) Linked problems:Dyslipidemia (Active) Case Team Name Relationship Phone Airam Boogie PharmD(Responsible Staff) Pharmacis t [phone] Continued Care and Services Coordination
--- OUTSIDE RECORDS SUMMARY | 2025-01-31 15:29 | XMS_ITS | Clinical Summary ---
Author Organization [facility] Address [address] [place] [address] Care Team Providers Care Process Area Supervisor Name Role Phone Taqueria Mandie Evans APRN Primary Care Provider +1- [phone] Allergies Active Allergy Reactions Criticality Noted Date Comments Latex Rash Low 05/16/2019 Penicillins Hives,Rash Medium 05/07/2011 Pineapple Itching Medium 02/19/2024 Medications aspirin 81 MG EC tablet Take 1 tablet (81 mg) by mouth 1 (one) time each day. Active albuterol (Proventil) (2.5 MG/3ML) 0.083% nebulizer solution Inhale 3 mL (2.5 mg) every 4 (four) hours as needed. Active Azelastine HCl 137 MCG/SPRAY solution USE 1 SPRAY(S) IN EACH NOSTRIL EVERY 6 HOURS NEEDED FOR ALLERGY SYMPTOMS 024 Active Calcium Carb-Cholecalc iferol 600-12.5 MG-MCG capsule Take 1 capsule by mouth 1 (one) time each day. Active colchicine (Colcrys) 0.6 MG tablet Take 1 tablet (0.6 mg) by mouth twice a day. Active colestipol (Colestid) 1 g tablet Take 1 tablet (1 g) by mouth twice a day. Active cyanocobalamin (Vitamin B-12) 1000 MCG/ML injection INJECT 1 ML (CC) INTRAMUSCULARLY ONCE EVERY MONTH 025 Active denosumab (Prolia) 60 MG/ML injection Inject 1 mL (60 mg) under the skin. Active famotidine (Pepcid) 40 MG tablet Take 1 tablet (40 mg) by mouth 1 (one) time each day. Active fluticasone (Flonase) 50 MCG/ACT nasal spray Administer 2 sprays into affected nostril(s) 1 (one) time each day. Active Leqvio 284 MG/1.5ML solution prefilled syringe injection Inject 1.5 mL (284 mg) under the skin. Active indomethacin (Indocin) 50 MG capsule Take 1 capsule (50 mg) by mouth. Active levocetirizine (Xyzal) 5 MG tablet Take 1 tablet (5 mg) by mouth 1 (one) time each day. Active metoprolol tartrate (Lopressor) 25 MG tablet Take 1 tablet (25 mg) by mouth twice a day. Active montelukast (Singulair) 10 MG tablet Take 1 tablet (10 mg) by mouth 1 (one) time each day. Active ranolazine (Ranexa) 500 MG 12 hr tablet Take 1 tablet (500 mg) by mouth twice a day. 024 Active spironolactone (Aldactone) 25 MG tablet Take 1 tablet (25 mg) by mouth daily. Active sucralfate (Carafate) 1 g tablet Take 1 tablet (1 g) by mouth 4 times a day. Active nitroglycerin (Nitrodur) 0.4 MG/HR patch Place 1 patch on the skin daily. Active ferrous gluconate (Fergon) 324 (38 Fe) MG tablet Take 1 tablet (324 mg) by mouth daily with breakfast. Active levothyroxine (Synthroid, Levoxyl) 125 MCG tabletIndicati ons:Hypothyroi dism due to Roger thyroiditis Take 1 tablet by mouth daily. 30 tablet 3 Active levothyroxine (Synthroid, Levoxyl) 150 MCG tabletIndicati ons:Hypothyroi dism due to Roger thyroiditis Take 1 tablet by mouth daily. 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) 01/20/2025 Travel 01/11/2025 Results Follow-Up [facility] [address] [place] [address] Jim Sierra MD 01/11/2025 Travel from Last 3 Months Social History Tobacco Use Types Packs/Day Years [...] PM EST Sexual Orientation Not on file Last Filed [...] Mass Index 31.52 01/20/2025 10:39 AM EDT Plan of Treatment Upcoming Encounters Date Type Department Care Team (Late st Contact Info) Description 04/28/2025 9:40 AM EDT [facility] [address] [place] [address] Jim Sierra MD [address] [facility] [address] [place] [address] Health Maintenance Due Date Last Done Comments [facility]-Bone Density Scan 1960 [facility]-Medicare Annual Wellness (AWV) 1960 [facility]-Infant/Child/Adol SDOH Screenings 1960 [facility]- SDOH Screenings 12/23/1977 [facility]-Adult SDOH Screenings 12/23/1977 [facility]-Pap Smear 12/23/1980 [facility]-Cervical Cancer Screening 12/23/1989 [facility]-HPV/Cotest 12/23/1989 CT Colonography 12/23/2004 Colonoscopy 12/23/2004 FIT-DNA 12/23/2004 FIT 12/23/2004 FOBT 12/23/2004 Sigmoidoscopy 12/23/2004 [facility]-Colorectal Cancer Screening 12/23/2004 [facility]-Breast Cancer Screening 12/23/2009 [facility]-Pneumococcal Vaccine: 50+ Years (1 of 1 - PCV) 12/23/2009 [facility]-Zoster Vaccines (1 of 2) 12/23/2009 [facility]Y-RSV Vaccine: 60+ Years or (1 - Risk 60-74 years 1-dose series) 2019 VNY-EMPKO-17 Vaccine ( - season) 2024 12/19/2021, 07/03/2021, 10/19/2020, Additional history exists [facility]-Influenza Vaccine (#1) 2025 [facility]-Depression Screening 01/20/2026 01/20/2025, 01/03 [facility]-DTaP,Tdap,and Td Vaccines (2 - Td or Tdap) 04/22/2028 04/22/2018 [facility]-Hepatitis C Screening Completed 02/23/2020 [facility]-Obesity Intervention Completed 025, 10/07/2024, 09/02/2024 HPV Vaccines Aged Out No longer eligi ble based on patient's age to complete this topic UKY-HIB Vaccines Aged Out No longer e ligible based on patient's age to complete this topic [facility]-Hepatitis A Vaccines Aged Out No longer eligible based on patient's age to complete this topic UKY-IPV Vaccines Aged Out No longer e ligible based on patient's age to complete this topic UKY-Rotavirus Vaccines Aged Out No lo nger eligible based on patient's age to complete this topic Procedures Procedure Name Priority Date/Time Associated Diagnosis Comments TSH Routine 01/11/2025 10:28 AM EDT 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 FREE T4, PLASMA Routine 01/11/2025 10:28 AM EDT 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 HEPATITIS C ANTIBODY - ED W/REFLEX TO HCV QUANT PCR Routine 02/23/2020 7:07 PM EDT from Last 3 Months or Most Recently Relevant to Health Maintenance Results * (ABNORMAL) TSH (01/11/2025 10:28 AM EDT) Pathologist [facility] Thyroid Stimulating Hormone, Plasma 0.03(L) 0.40 - 4.20 uIU/mL 01/11/2025 1:23 PM EDT [facility] Blood Venous blood specimen / Unknown Venipuncture / Unknown 01/11/2025 10:28 AM EDT 01/11/2025 10:28 AM EDT us Jim Sierra MD LAB BLOOD ORDERABLES Final R esult Performing Organization Address City/[facility]/ZIP Co de Phone Number [facility] [address] [place] [address] * (ABNORMAL) T4, free (01/11/2025 10:28 AM EDT) [facility] Free T4, Plasma 1.9(H) 0.8 - 1.7 ng/dL 01/11/2025 1:23 PM EDT [facility] Blood Venous blood specimen / Unknown Venipuncture / Unknown 01/11/2025 10:28 AM EDT 01/11/2025 10:28 AM EDT us Jim Sierra MD LAB BLOOD [place] [address] * [place] Hepatitis C Antibody (02/23/2020 7:07 PM EDT) [facility] Hepatitis C Ab NEGATIVE Reference Range: Negative SUNQUEST 02/23/2020 7:07 PM EDT 02/23/2020 7:23 PM EDT us Yumiko Kimbrough MD LAB BLOOD ORDERABLES Final Re sult SUNQUEST from Last 3 Months or Most Recently Relevant to Health Maintenance Insurance [facility] MEDICARE Care Teams Process Area Supervisor Relationship Specialty Start Date End Date Mandie Meng APRN [address] [place] [address] PCP - General 09/02/24
--- NOTE | 2025-01-31 15:30 | CT_ITS ---
FINAL REPORT TECHNIQUE: Thin section axial CT images with coronal and sagittal reformats were performed through the neck. This study was performed with techniques to keep radiation doses as low as reasonably achievable (ALARA). Individualized dose reduction techniques using automated exposure control or adjustment of mA and/or kV according to the patient's size were employed. CLINICAL HISTORY: right sided swelling COMPARISON: None FINDINGS: CT SOFT TISSUE NECK WITHOUT CONTRAST: Exam quality is limited without the use of intravenous contrast. The nasopharynx, oropharynx, epiglottis, and larynx are without acute abnormality. The thyroid gland is not visualized, may either be atrophic or surgically resected. The salivary glands are unremarkable. No focal soft tissue swelling is identified in the neck. There are small bilateral submandibular lymph nodes, nonspecific. No adenopathy is present. The sinuses and mastoid air cells are clear. IMPRESSION: No acute process. The thyroid is not visualized, is likely either atrophic or has been surgically resected. Reviewed, Interpreted and Dictated by Shania Gan MD Transcribed by Shirlene Smith Authenticated and . [facility]
== END 2025-01-31 23:59 | disposition home or self-care (01) ==
LOC: RAD 15:26
PROVIDERS: PCP Nurse Practitioner Family; Visit Provider Nurse Practitioner Family
DX: R93.89 Abnormal findings on diagnostic imaging of other specified body structures (principal); M54.2 Cervicalgia
CPT/HCPCS: 70490

== ENCOUNTER 2025-03-14 09:47 | Outpatient (CLI) | payer MEDICARE, SELFPAY ==
--- OUTSIDE RECORDS SUMMARY | 2020-10-08 06:40 | XMS_ITS | Continuity of Care Document ---
Author Organization [facility] Address [address] [place] [address] Phone Care Team Providers Care Associate Professor Of Biostatistics Name Role Phone Breeding Geraldo WOODALL Unavailable Unavailable Allergies, Adverse Reactions, Alerts Substance Reaction Status Criticality Penicillins hives Active No Information Medications Medication Instructions Dosage Effective Dates (start - stop) Status Comments LEVOCETIRIZINE DHCL 5MG TAB TAKE 1 TABLET BY MOUTH IN THE EVENING - Active RANITIDINE 300 MG TABLET one bid - Active PROTONIX 40 MG TABLET,DELAYED RELEASE take 1 tablet by oral route every day - Active Mobic 15 mg tablet take 1 tablet by oral route every day as needed - Active levothyroxine 125 mcg tablet take 1 tablet by oral route every day 125 MCG - Active Singulair 10 mg tablet TAKE 1 TABLET BY MOUTH EVERY DAY IN THE EVENING - Active Lipitor 20 mg tablet TAKE ONE TABLET BY MOUTH EVERY EVENING FOR CHOLESTEROL ARH DISCHARGE - Active Toprol XL 25 mg tablet,extended [...] day as needed 500 MG - Active Voltaren 1 % topical gel apply (2G) by topical route 4 times every day to the affected area(s) as needed - Active tizanidine 4 mg tablet take 1 tablet by oral route every bedtime as needed not to exceed 3 doses in 24 hours 4 MG - Active Symbicort 160 mcg-4.5 mcg/actuation HFA [...] Location Reason(s) For Visit Diagnoses Date Provider [facility], [address] [place] [address], [facility], tel:[phone] [address] [place] [address] No Information . [address] [place] [address], [id number], [place]. tel:[phone], [address], tel:[phone] [address] [place] [address] No Information October. [address] [place], [place], [id number], [place]. tel:[phone], [address], [place] tel:[phone] [address] [place] [address] No Information [facility]. [address] [place], [place], [id number], [place]. tel:[phone], [address], [place] tel:[phone] [facility] Visit for screening mammogramAge-rela hanna osteoporosis without current pathological fracture [facility]. [address] [place] [address], [id number], . tel:[phone] [facility], [address] [place] [address], [facility], tel:[phone] [address] [place] [address] Musculoskeletal pain (chief complaint)hypert ension (chief complaint)Hyperl ipidemia (chief complaint) Acute pain of right kneeJoint effusionStatus post fallMyalgiaEssent ial hypertensionPure hypercholesterole miaVitamin D deficiencyVitamin B12 deficiency anemia due to selective vitamin B12 malabsorption with proteinuria Oct-3 [facility] [place] [address], [id number], . tel:[phone] [facility], [address] [place] [address], [facility], tel:[phone] [address] [place] [address] Follow Up Hosp Visit (chief complaint)hypert ension (chief complaint)Hyperl ipidemia (chief complaint) Unstable anginaOverweightD ietary counseling and surveillancePresc ribed Activity/Exercise CounselingArthrop athy, unspecifiedChroni c obstructive pulmonary disease, unspecifiedEssent ial hypertensionHyper lipidemia, unspecifiedHypoth yroidism, unspecified typeOther fatigueGastroesop hageal reflux disease without esophagitisOther hyperlipidemia Jun-0 [facility]. [address] [place] [address], [id number], [place]. tel:[phone] [facility], [address] [place] [address], [address], [place] tel:[phone] [facility] No Information Jun-0 [facility]. [address] [place] [address], [id number], . tel:[phone] [facility], [address] [place] [address], [address], [place] tel:[phone] [facility] No Information 8 [place] [facility]. [address] [place], [place], [id number], [place]. tel:[phone] [facility], [address] [place] [address], [address], [place] tel:[phone] [facility] chest pain (chief complaint)taken nitro (chief complaint) OverweightDietary counseling and surveillancePresc ribed Activity/Exercise CounselingChest pain, unspecified type 8 [place] [facility]. [address] [place], [place], [id number], [place]. tel:[phone] [facility], [address] [place] [address], [address], [place] tel:[phone] [facility] Headaches (chief complaint)Blurry vision (chief complaint) Body mass index (BMI) 28.0-28.9, adultDietary counseling and surveillanceMyopi a of both eyes with astigmatism and presbyopiaUnspeci fied astigmatism, bilateralPresbyop iaFrequent headachesNuclear sclerosis of both eyes 8 Amari Bush. [address] [place] [address], [id number], [place]. tel:[phone] [facility], [address] [place] [address], [address], [place] tel:[phone] [address] [place] [address] Medical Clinic hypertension (chief complaint)Hyperl ipidemia (chief complaint) OverweightDietary counseling and surveillancePresc ribed Activity/Exercise CounselingEssenti al hypertensionCardi ac murmur, unspecifiedHyperl ipidemia, unspecifiedHypoka lemiaHypomagnesem iaHypothyroidism, unspecified typeVitamin D deficiencyVitamin B12 deficiency anemia due to selective vitamin B12 malabsorption with proteinuria 8 VazquezMara Anitha. [address] [place] [address], [id number], [place]. tel:[phone] [facility], [address] [place] [address], [address], [place] tel:[phone] [facility] Follow Up of hypertension (chief complaint) OverweightDietary counseling and surveillancePresc ribed Activity/Exercise CounselingTachyca issacia Juaquin Gayle. [address] [place] [address], [id number], [place]. tel:[phone] [facility], [address] [place] [address], [address], [place] tel:[phone] [address] [place] [address] hypertension (chief complaint)Cold symptoms (chief complaint) OverweightDietary counseling and surveillancePresc ribed Activity/Exercise CounselingEssenti al hypertensionPost- nasal dripVertigoCoughN ear syncopeCervicalgi a [facility] October. [address] [place] [address], [id number], [place]. tel:[phone] [facility], [address] [place] [address], [facility], [place] tel:[phone] [address] [place] [address] Medicare preventive (chief complaint) OverweightDietary counseling and surveillancePresc ribed Activity/Exercise CounselingMedicar e annual wellness visit, subsequent [facility] October. [address] [place], [place], [id number], [place]. tel:[phone] [facility], [address] [place] [address], [address], [place] tel:[phone] [address] [place] [address] GERD (chief complaint) Body mass index (BMI) 28.0-28.9, adultDietary counseling and surveillancePresc ribed Activity/Exercise CounselingSyncope and collapseGastroeso phageal reflux disease without esophagitisIdiopa thic hypotensionOther specified hypotensionDiarrh ea, unspecified typeNauseaDehydra tionMyalgiaHypoka lemiaHypomagnesem ia [facility] October. [address] [place], [place], [id number], [place]. tel:[phone] [facility], [address] [place] [address], [address], [place] tel:[phone] [address] [place] [address] [facility] Visit for screening mammogram [facility] October. [address] [place], [place], [id number], . tel:[phone] [facility], [address] [place] [address], [address], tel:[phone] [facility] Musculoskeletal pain (chief complaint)Thyroi d problems (chief complaint)hypert ension (chief complaint) OverweightDietary counseling and surveillancePresc ribed Activity/Exercise CounselingEssenti al (primary) hypertensionOther intervertebral disc displacement, lumbosacral regionHypothyroid ism, unspecified typeVitamin D deficiencyVitamin B12 deficiency anemia due to selective vitamin B12 malabsorption with proteinuriaArthro rachna, unspecifiedDyspha jenni, unspecified type [facility] October. [address] [place], [place], [id number], [place]. tel:[phone] [facility], [address] [place] [address], [facility], tel:[phone] [address] [place] [address] Dizziness (chief complaint) OverweightDietary counseling and surveillanceOther specified counselingBenign paroxysmal positional vertigo due to bilateral vestibular disorderMeniere's disease of both ears 7 Gloria [facility]. [address] [place] [address], [id number], [place]. tel:[phone] [facility], [address] [place] [address], [address], [place] tel:[phone] [address] [place] [address] Thyroid problems (FP) (chief complaint)Muscul oskeletal pain (chief complaint) OverweightDietary counseling and surveillanceOther specified counselingEssenti al (primary) hypertensionHypot hyroidism, unspecified typeOther intervertebral disc displacement, lumbosacral regionMononeuropa thy, unspecifiedHyperl ipidemia, unspecifiedVitami n D deficiencyVitamin B12 deficiency anemia due to selective vitamin B12 malabsorption with proteinuriaLeft ankle pain, unspecified chronicityFoot pain, bilateralPain in left foot [facility] October. [address] [place], [place], [id number], [place]. tel:[phone] [facility], [address] [place] [address], [address], [place] tel:[phone] [facility] Follow Up of hospital (chief complaint)hypert ension (chief complaint)Hyperl ipidemia (chief complaint) OverweightDietary counseling and surveillanceOther specified counselingChest pain in adultChronic obstructive pulmonary disease, unspecifiedEssent ial (primary) hypertensionHyper lipidemia, unspecified [facility]. [address] [place], [place], [id number], [place]. tel:[phone] [facility], [address] [place] [address], [address], [place] tel:[phone] [facility] No Information VazquezCarmenoctober. [address] [place], [place], [id number], [place]. tel:[phone] [facility], [address] [place] [address], [address], [place] tel:[phone] [facility] chest pain (chief complaint) OverweightDietary counseling and surveillanceOther specified counselingChest pain in adult VazquezCarmenoctober. [address] [place], [place], [id number], [place]. tel:[phone] [facility], [address] [place] [address], [address], [place] tel:[phone] [facility] No Information VazquezCarmenoctober. [address] [place], [place], [id number], [place]. tel:[phone] [facility], [address] [place] [address], [address], [place] tel:[phone] [address] [place] [address] [facility] hypothyroidism (chief complaint)hypert ension (chief complaint)GERD (chief complaint) OverweightDietary counseling and surveillanceOther specified counselingHypothy roidism, unspecified typeGastro-esopha geal reflux disease without esophagitisOther terminal block assembler (current) drug therapyEssential (primary) hypertensionHisto ry of rhabdomyolysisMix ed hyperlipidemiaVit sanford D deficiency [facility]. [address] [place] [address], [id number], . tel:[phone] [facility], [address] [place] [address], [address], [place] tel:[phone] [facility] Thyroid problems (FP) (chief complaint) OverweightDietary counseling and surveillanceOther specified counselingHypothy roidism, unspecified hypothyroidism type [facility]. [address] [place], [place], [id number], [place]. tel:[phone] [facility], [address] [place] [address], [address], [place] tel:[phone] [facility] Partial loss of teeth, unspecified cause, unspecified class [place] Kellee. [address] [place] [address], [id number], [place]. tel:[phone] [facility], [address] [place] [address], [address], [place] tel:[phone] [facility] Musculoskeletal pain (chief complaint) OverweightDietary counseling and surveillanceOther specified counselingAcute pain of right shoulderAcute pain of right kneeOther intervertebral disc displacement, lumbosacral region October. [address] [place] [address], [id number], [place]. tel:[phone] [facility], [address] [place] [address], [address], [place] tel:[phone] [facility] Low back pain with sciatica, sciatica laterality unspecified, unspecified back pain laterality, unspecified chronicity [facility]. [address] [place], [place], [id number], [place]. tel:[phone] [facility], [address] [place] [address], [address], [place] tel:[phone] [address] [place] [address] Medicare preventive (chief complaint) OverweightDietary counseling and surveillanceOther specified counselingEncount er for general adult medical examination without abnormal findingsArthropat hy, unspecifiedHip pain, bilateralPain in left hipRight knee pain, unspecified chronicityPain of right upper extremityMid back pain October. [place], [id number], [place]. tel:[phone] [facility], [address] [place] [address], [address], [place] tel:[phone] [address] [place] [address] Thyroid problems (FP) (chief complaint)back pain (chief complaint)hypert ension (chief complaint) OverweightDietary counseling and surveillanceOther specified counselingEssenti al (primary) hypertensionHyper lipidemia, unspecifiedOther vitamin B12 deficiency anemiasVitamin D deficiency, unspecifiedArthro rachna, unspecifiedOther intervertebral disc displacement, lumbar regionOther myositis, unspecified siteFall, initial encounter [facility]. [address] [place], [place], [id number], [place]. tel:[phone] [facility], [address] [place] [address], [address], [place] tel:[phone] [address] [place] [address] Visit for screening mammogram [facility]. [address] [place] [address], [id number], [place]. tel:[phone] [facility], [address] [place] [address], [address], [place] tel:[phone] [address] [place] [address] [facility] No Information Beto Goodson. [address] [place] [address], [id number], [place]. tel:[phone] [facility], [address] [place] [address], [address], [place] tel:[phone] [address] [place] [address] [facility] Hypokalemia [facility]. [address] [place], [place], [id number], [place]. tel:[phone] [facility], [address] [place] [address], [address], [place] tel:[phone] [address] [place] [address] Dental Clinic No Information 7 Beto Goodson. [address] [place] [address], [id number], [place]. tel:[phone] [facility], [address] [place] [address], [address], [place] tel:[phone] [address] [place] [address] [facility] vitamin D (chief complaint)hypert ension (chief complaint)Muscul oskeletal pain (chief complaint) OverweightDietary counseling and surveillanceOther specified counselingCervica lgiaGastro-esopha geal reflux disease without esophagitisOther intervertebral disc displacement, lumbar regionMononeuropa thy, unspecifiedMuscle spasm of backVitamin D deficiency, unspecifiedNicoti ne dependence, cigarettes, uncomplicatedEnco unter for general adult medical examination with abnormal findingsEssential (primary) hypertensionHypot hyroidism, unspecified hypothyroidism typeHyperlipidemi a, unspecifiedCoughL ow blood potassium 7 Vazquez-Carmen October. [address] [place] [address], [id number], [place]. tel:[phone] [facility], [address] [place] [address], [address], tel:[phone] [facility] Dental caries, unspecified 7 Beto Hernandezecca. [address] [place] [address], [id number], [place]. tel:[phone] [facility], [address] [place] [address], [address], [place] tel:[phone] [address] [place] [address] Dental Clinic No Information 6 Beto Hernandezecca. [address] [place] [address], [id number], . tel:[phone] [facility], [address] [place] [address], [address], [place] tel:[phone] [address] [place] [address] Dental Clinic No Information 6 [place] Kellee. [address] [place] [address], [id number], [place]. tel:[phone] [facility], [address] [place] [address], [address], [place] tel:[phone] [facility] Necrosis of pulp 6 [place] Kellee. [address] [place] [address], [id number], [place]. tel:[phone] [facility], [address] [place] [address], [address], [place] tel:[phone] [facility] Thyroid (chief complaint)hypert ension (chief complaint)Hyperl ipidemia (chief complaint) OverweightDietary counseling and surveillanceOther specified counselingHypothy roidism, unspecified hypothyroidism typeEssential (primary) hypertensionVitam in D deficiency, unspecifiedVitami n B12 deficiency anemia due to selective vitamin B12 [address]absorption [address] proteinuriaEncoun ter for general adult medical examination without abnormal findings 6 [facility] October. [address] [place] [address], [id number], [place]. tel:[phone] [facility], [address] [place] [address], [address], [place] tel:[phone] [address] [place] [address] [facility] No Information 6 [facility]. [address] [place] [address], [id number], [place]. tel:[phone] [facility], [address] [place] [address], [address], [place] tel:[phone] [facility] Dental caries, unspecified 6 [facility]. [address] [place] [address], [id number], [place]. tel:[phone] [facility], [address] [place] [address], [address], [place] tel:[phone] [facility] back pain (chief complaint)Earach e (chief complaint) OverweightDietary counseling and surveillanceOther specified counselingOther intervertebral disc displacement, lumbosacral regionCervicalgia MyalgiaMononeurop athy, unspecified VazquezCarmenoctober. [address] [place] [address], [id number], . tel:[phone] [facility], [address] [place] [address], [address], tel:[phone] [facility] Musculoskeletal pain (chief complaint)hypert ension (chief complaint) Body mass index (BMI) 29.0-29.9, adultDietary counseling and surveillanceOther specified counselingCervica lgiaMyalgiaOther intervertebral disc displacement, lumbosacral region [facility]. [address] [place], [place], [id number], [place]. tel:[phone] [facility], [address] [place] [address], [address], [place] tel:[phone] [address] [place] [address] [facility] No Information [place] Kellee. [address] [place] [address], [id number], [place]. tel:[phone] [facility], [address] [place] [address], [address], [place] tel:[phone] [facility] Necrosis of pulp 6 [facility]. [address] [place] [address], [id number], [place]. tel:[phone] [facility], [address] [place] [address], [address], [place] tel:[phone] [facility] Hypothyroidism (chief complaint)hypert ension (chief complaint) Obesity, unspecifiedDietar y counseling and surveillanceOther specified counselingEssenti al (primary) hypertensionHypot hyroidism, unspecified hypothyroidism typeGastro-esopha geal reflux disease without esophagitisOther intervertebral disc displacement, lumbosacral regionOther vitamin B12 deficiency anemiasVitamin D deficiency, unspecified [facility]. [address] [place] [address], [id number], [place]. tel:[phone] [facility], [address] [place] [address], [address], [place] tel:[phone] [facility] No Information 6 Keyla Susan. [address] [place] [address], [address]. tel:[phone] [facility], [address] [place] [address], [address], [place] tel:[phone] [facility] Encounter for dental exam and cleaning w abnormal findings 6 Beto Kellee. [address] [place] [address], [id number], [place]. tel:[phone] [facility], [address] [place] [address], [facility], [place] tel:[phone] [facility] Visit for screening mammogram VazquezCarmenoctober. [address] [place] [address], [id number], . tel:[phone] [facility], [address] [place] [address], [address], [place] tel:[phone] [facility] Cold symptoms (chief complaint) Obesity, unspecifiedDietar y counseling and surveillanceOther specified counselingAllergi c rhinitis, unspecifiedAcute maxillary sinusitis, recurrence not specified 6 Rukhsana Baker. [address] [place] [address], [facility]. tel:[phone] [facility], [address] [place] [address], [address], [place] tel:[phone] [address] [place] [address] [facility] Thyroid problems (FP) (chief complaint)hypert ension (chief complaint) Obesity, unspecifiedDietar y counseling and surveillanceOther specified counselingEssenti al (primary) hypertensionHypot hyroidism, unspecified hypothyroidism typeOther hyperlipidemiaOth er vitamin B12 deficiency anemiasVitamin D deficiency, unspecifiedChroni c obstructive pulmonary disease, unspecifiedEncoun ter for general adult medical examination without abnormal findings 6 [facility]. [address] [place], [place], [id number], [place]. tel:[phone] [facility], [address] [place] [address], [facility], tel:[phone] [address] [place] [address] Musculoskeletal pain (chief complaint)Back pain (chief complaint)hypert ension (chief complaint) Obesity, unspecifiedDietar y counseling and surveillanceOther specified counselingEssenti al (primary) hypertensionVitam in B12 deficiency anemia due to selective vitamin B12 malabsorption with proteinuriaFoot pain, rightLow back pain with sciatica, sciatica laterality unspecified, unspecified back pain lateralityHypothy roidism, unspecified hypothyroidism type [facility] October. [address] [place] [address], [id number], . tel:[phone] [facility], [address] [place] [address], [facility], tel:[phone] [address] [place] [address] Thyroid problems (FP) (chief complaint)hypert ension (chief complaint)Hyperl ipidemia (chief complaint) ObesityDietary surveillance and counselingExercis e counselingHyperte nsion, UnspecifiedOther and unspecified hyperlipidemiaVit sanford D deficiencyUnspeci fied hypothyroidismOth er vitamin B12 deficiency anemiaRoutine medical exam Mar- [facility] October. [address] [place] [address], [id number], . tel:[phone] [facility], [address] [place] [address], [facility], [place] tel:[phone] [facility] Musculoskeletal pain (chief complaint) ObesityDietary surveillance and counselingExercis e counselingRoutine gynecological examinationKnee pain, acute 5 [facility]. [address] [place] [address], [id number], [place]. tel:[phone] [facility], [address] [place] [address], [facility], [place] tel:[phone] [facility] Thyroid problems (FP) (chief complaint)hypert ension (chief complaint) Hypertension, UnspecifiedOther and unspecified hyperlipidemiaUns pecified hypothyroidismTob acco use disorderRoutine medical examPeripheral neuropathy, UnspecHeart murmurObesityKnee pain [facility] October. [address], [place], [id number], [place]. tel:[phone] [facility], [address] [place] [address], [address], [place] tel:[phone] [address] [place] [address] [facility] Visit for screening mammogramStress fracture of metatarsals [facility] October. [address] [place], [place], [id number], [place]. tel:[phone] [facility], [address] [place] [address], [address], [place] tel:[phone] [address] [place] [address] Thyroid problems (FP) (chief complaint)hypert ension (chief complaint)Hyperl ipidemia (chief complaint)Muscul oskeletal pain (chief complaint) Stress fracture of metatarsalsUnspec ified hypothyroidismCOP DGERDHypertension , UnspecifiedOther and unspecified hyperlipidemiaRou richard medical examOverweight [facility] October. [address] [place], [place], [id number], [place]. tel:[phone] [facility], [address] [place] [address], [address], [place] tel:[phone] [address] [place] [address] MRI Follow Up (chief complaint)Sinus symptoms (acute) (chief complaint)back pain (chief complaint) Lumbar disc herniationSciatic aNeuropathyUpper respiratory infection, acuteAllergic rhinitis [facility] October. [address] [place], [place], [id number], [place]. tel:[phone] [facility], [address] [place] [address], [address], [place] tel:[phone] [address] [place] [address] Lumbago [facility] October. [address] [place], [place], [id number], [place]. tel:[phone] [facility], [address] [place] [address], [address], [place] tel:[phone] 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 . [facility], [address] [place] [address], [address], [place] tel:[phone] [facility] musculoskeletal pain (chief complaint) Hypertension, UnspecifiedGERDUn specified hypothyroidismCOP DMyalgia and myositis, unspecifiedHeart murmurFoot pain 4 [facility] October. [address] [place] [address], [id number], [place]. tel:[phone] [facility], [address] [place] [address], [address], tel:[phone] [facility] Musculoskeletal pain (chief complaint)GERD (chief complaint) LumbagoGERDUnspec ified hypothyroidismTob acco use disorderCOPDOverw eight 4 [facility] October. [address] [place] [address], [id number], [place]. tel:[phone] [facility], [address] [place] [address], [address], [place] tel:[phone] [address] [place] [address] allergic rhinitis (chief complaint)produc tive cough (chief complaint)conges tion (chief complaint)tobacc o use (chief complaint) Allergic rhinitisCoughToba accounting officer use 4 [facility]. [address] [place] [address], [id number], [place]. tel:[phone] [facility], [address] [place] [address], [address], [place] tel:[phone] [address] [place] [address] cold symptoms (chief complaint)thyroi d problems (chief complaint) Bronchitis, AcuteHypothyroidi smTobacco AbuseGERDFatigue / MalaiseOther and unspecified hyperlipidemiaPer ipheral neuropathy, Unspec [facility]. [address] [place] [address], [id number], [place]. tel:[phone] [facility], [address] [place] [address], [address], [place] tel:[phone] [facility] Visit for screening mammogram [facility] [address] [place], [place], [id number], [place]. tel:[phone] [facility], [address] [place] [address], [address], [place] tel:[phone] [facility] cold symptoms (chief complaint)numbne ss right hand (chief complaint) Upper Respiratory Infection, AcuteAllergic rhinitis, cause unspecifiedPeriph eral neuropathy, UnspecHypothyroid ismHypertension, Unspecified [facility]. [address] [place] [address], [id number], [place]. tel:[phone] [facility], [address] [place] [address], [address], [place] tel:[phone] [facility] thyroid problems (chief complaint)cold symptoms (chief complaint)arthal gias (chief complaint) Pain in joint involving pelvic region and thighLumbagoArthr opathyMyalgia and myositis, unspecifiedHypoth yroidismTobacco AbuseFatigue / Malaise [facility]. [address] [place] [address], [id number], [place]. tel:[phone] [facility], [address] [place] [address], [address], [place] tel:[phone] [facility] thyroid problems (chief complaint) HypothyroidismTob acco AbuseGERD [facility] October. [address] [place] [address], [id number], [place]. tel:[phone] [facility], [address] [place] [address], [address], [place] tel:[phone] [facility] pain in rt side under rt arm (chief complaint)rt shoulder pain , to back (chief complaint)pain under rt ribs (chief complaint)back pain (chief complaint) Muscle spasm of back 3 Deon Miller. [address] [place] [address], [address]. tel:[phone] [facility], [address] [place] [address], [address], [place] tel:[phone] [facility] Hemorrhage of rectum and anus 3 October. [address] [place], [place], [id number], [place]. tel:[phone] [facility], [address] [place] [address], [address], [place] tel:[phone] [facility] No Information 3 Dallas Rhodes. [address] [place] [address], [id number], [place]. tel:[phone] [facility], [address] [place] [address], [address], [place] tel:[phone] [facility] thyroid problems (chief complaint)muscul oskeletal pain (chief complaint) BruitMyalgia and myositis, unspecified 3 October. [address] [place], [place], [id number], [place]. tel:[phone] [facility], [address] [place] [address], [address], [place] tel:[phone] [facility] Osteoporosis 3 [employer]. . [facility], [address] [place] [address], [address], [place] tel:[phone] [facility] GERD 3 [employer]. . [facility], [address] [place] [address], [address], [place] tel:[phone] [facility] GERD 3 [employer]. . [facility], [address] [place] [address], [address], [place] tel:[phone] [facility] thyroid problems (chief complaint) HypothyroidismTob acco AbuseOsteoporosis Arthropathy 3 [facility]. [address] [place] [address], [id number], . tel:[phone] [facility], [address] [place] [address], [address], [place] tel:[phone] [facility] Pain in joint involving forearm 3 [employer]. . [facility], [address] [place] [address], [address], [place] tel:[phone] [facility] GERD 3 [employer]. . [facility], [address] [place] [address], [address], [place] tel:[phone] [facility] GERD 3 [employer]. . [facility], [address] [place] [address], [address], [place] tel:[phone] [facility] thyroid problems (chief complaint)GERD (chief complaint) HypothyroidismGER DTobacco Abuse 3 [facility]. [address] [place] [address], [id number], [place]. tel:[phone] [facility], [address] [place] [address], [address], [place] tel:[phone] [facility] GERDFatigue / Malaise 3 [employer]. . [facility], [address] [place] [address], [address], [place] tel:[phone] [facility] Fatigue / Malaise 2 [employer]. . [facility], [address] [place] [address], [address], [place] tel:[phone] [facility] annual visit (chief complaint) Screening for malignant neoplasms of the cervix 2 Montana Lundberg. [address] [place] [address], [address]. tel:[phone] [facility], [address] [place] [address], [address], [place] tel:[phone] [address] [place] [address] No Information [address] [place] [address], [id number], . tel:[phone] [facility], [address] [place] [address], [address], [place] tel:[phone] [facility] cold symptoms (chief complaint) Upper Respiratory Infection, AcuteAllergic rhinitis, cause unspecifiedHypoth yroidismTobacco AbuseGERDAnnual EMERGENCY COMMUNICATIONS OFFICER Exam 2 [facility]. [address] [place] [address], [id number], . tel:[phone] [facility], [address] [place] [address], [address], [place] tel:[phone] [address] [place] [address] No Information 2 [employer]. . [facility], [address] [place] [address], [address], [place] tel:[phone] [address] [place] [address] No Information 2 [employer]. . [facility], [address] [place] [address], [address], [place] tel:[phone] [facility] thyroid problems (chief complaint)arthal gias (chief complaint) HypothyroidismGER DArthropathyTobac co Abuse [address] [place] [address], [id number], [place]. tel:[phone] [facility], [address] [place] [address], [address], [place] tel:[phone] [address] [place] [address] No Information 2 [employer]. . [facility], [address] [place] [address], [address], [place] tel:[phone] [address] [place] [address] No Information 2 [employer]. . [facility], [address] [place] [address], [address], [place] tel:[phone] [facility] fatigue (chief complaint) Fatigue / MalaiseHypothyroi dismTobacco Abuse [address] [place] [address], [id number], [place]. tel:[phone] [facility], [address] [place] [address], [facility], [place] tel:[phone] [address] [place] [address] No Information 2 [employer]. . [facility], [address] [place] [address], [facility], tel:[phone] [facility] sore throat (chief complaint) Upper Respiratory Infection, AcuteAcute conjunctivitis, unspecified 2 Gloria Piedmont. [address] [place] [address], [id number], [place]. tel:[phone] [facility], [address] [place] [address], [address], [place] tel:[phone] [address] [place] [address] No Information 1 [employer]. . [facility], [address] [place] [address], [address], tel:[phone] [facility] Ringing sound in ears (chief complaint)arthal gias (chief complaint) Pain in joint involving forearmAllergic rhinitis, cause unspecifiedHypoth yroidismTinnitus, unspecified [address] [place] [address], [id number], [place]. tel:[phone] [facility], [address] [place] [address], [address], tel:[phone] [address] [place] [address] No Information [address] [place] [address], [id number], [place]. tel:[phone] [facility], [address] [place] [address], [address], [place] tel:[phone] [facility] cough (chief complaint) Upper Respiratory Infection, Acute 1 Gloria Jaramillo. [address] [place] [address], [id number], [place]. tel:[phone] [facility], [address] [place] [address], [address], [place] tel:[phone] [address] [place] [address] right chest pain (chief complaint)pain with deep breathe (chief complaint)ears ringing (chief complaint) CostochondritisTo bacco AbuseHypothyroidi sm October. [address] [place] [address], [id number], [place]. tel:[phone] [facility], [address] [place] [address], [address], [place] tel:[phone] [address] [place] [address] No Information Mar-2 1 [employer]. . [facility], [address] [place] [address], [address], [place] tel:[phone] [address] [place] [address] No Information Mar- 1 Dallas Rhodes. [address] [place] [address], [id number], [place]. tel:[phone] [facility], [address] [place] [address], [address]32[address], [place] tel:[phone] [address] [place] [address] No Information Mar-October. [address] [place] [address], [id number], [place]. tel:[phone] [facility], [address] [place] [address], [address], [place] tel:[phone] [address] [place] [address] No Information Mar- [employer]. . [facility], [address] [place] [address], [address], [place] tel:[phone] [facility] No Information [facility] Anitha. [address] [facility], [place], [place], [id number], [place]. tel:[phone] Family History Family Member Type Diagnosis Age [...] Record Payers Payer name Insurance type Covered libertarian ID Authoriza tion(s) Medicare NGS MB [id number] Medicare NGS MB [id number] Medicare NGS MB [id number] Social History Type Description Quantity Date Captured Comments Sex Female Smoking Status No Information Gender Identity Female Chief Complaint And Reason For Visit No Information Plan Of Treatment Date Type Action Status Goal Cologuard. Due on 9 due Goal Colonoscopy. Due on 023 due Goal Depression screening. Due on due Goal Preventive Visit. Due on Feb due Goal Mammogram. Due on 1 due Goal PAP. Due on due Goal Influenza vaccine. Due on due Goal FOBT. Due on due Goal Cologuard. Due on 9 due Goal Depression screening. Due on due Goal Mammogram. Due on 0 due Goal PAP. Due on due Goal FOBT. Due on due Goal Preventive Visit. Due on Feb due Goal Influenza vaccine. Due on due Goal Colonoscopy. Due on 023 due Goal Tobacco cessation counseling completed Goal [...] AXIAL ordered Referral Referred To: Alan Montes [address] [place] [address] Drive [address] [place] [address], [phone] Ordered: Referrals: Orthopedic Surgery. Alan Montes. Evaluate and treat ordered Referral Ordered: X-RAY EXAM CHEST 2 VIEWS ordered Referral Referred To: Rosemary Nagel [address] [facility] [place] [address] [place], [phone] Ordered: Referrals: Cardiology. Rosemary Nagel. Evaluate and treat Appointment date/timeframe: 03/09/2018 ordered Referral Referred To: hTeron Lagos [address] [place], [address] [phone] Ordered: Referrals: Neurology. Theron Lagos. Evaluate and treat Appointment date/timeframe: 04/20/2018 ordered Referral Ordered: BREAST TOMOSYNTHESIS BI, ADD ON ordered Referral Ordered: MG Screening Mammo, CAD (When Performed)bilateral ordered Referral Referred To: Sadi Edwards [address] [place] [address] [place], [phone] Ordered: Referrals: Surgery. Sadi Edwards. Location: [facility]. Evaluate and treat Appointment date/timeframe: 01/19/2018 ordered Referral Ordered: CR ANKLE 3 VIEWS Left ordered Referral Ordered: CR FOOT 3 VIEWS Bilateral ordered Referral Ordered: CR Bilateral Hips Bilateral ordered Referral Ordered: CR T-SPINE 2 VIEWS ordered Referral Ordered: CR HUMERUS Right ordered Referral Referred To: Dario Valencia [address] [place], [place] [phone] Ordered: Referrals: Cardiology. Dario Valencia. Evaluate and treat Appointment date/timeframe: 11/03/2016 ordered Referral Ordered: CR PA & LAT CHEST ordered Referral Ordered: Referrals: Diagnostic Radiology. Evaluate and treat Appointment date/timeframe: 05/22/2015 ordered Referral Ordered: CR ANKLE 3 VIEWS Right ordered Referral Referred To: Tamika Vazquez IT SOFTWARE DEVELOPER [address] [place], [phone] Ordered: Referrals: Transitional Kindergarten Teacher. Tamika Vazquez IT SOFTWARE DEVELOPER. Location: [facility]. Evaluate and treat Appointment date/timeframe: 02/27/2015 ordered Referral Ordered: CR KNEE 3 VIEWS Right ordered Referral Ordered: CR KNEE 3 VIEWS Right weight bearing ordered Referral Referred To: Bryan Felix [address] [place] [address] [address] [place], [phone] Ordered: Referrals: Neurosurgery. Bryan Felix. Evaluate and treat Appointment date/timeframe: 06/15/2014 ordered Referral Referred To: XRay Department [facility] [address] [place], [phone] Ordered: Referrals: Diagnostic Radiology. XRay Department [facility]. Diagnostic testing Appointment date/timeframe: 04/21/2014 ordered Referral Referred To: Wood Greenberg [address] [place], [phone] Ordered: Referrals: Podiatry. Wood Greenberg. Evaluate and treat Appointment date/timeframe: 05/19/2014 ordered Referral Ordered: CR FOOT 3 VIEWS Right ordered Referral Referred To: Wale Coe [address] [place], [address] [phone] Ordered: Referrals: Cardiology. Wale Coe. Evaluate and treat Appointment date/timeframe: 03/29/2014 ordered Referral Referred To: Yudith Arnold [address] [facility] [address] [place], [phone] Ordered: Referral: Yudith Arnold. Evaluate and treat. Appointment date/timeframe: 08/26/2013 ordered Referral Ordered: MG Screening mammography digital ordered Referral Ordered: MG COMP SCREEN MAMMOGRAM ADD-ON DIGITAL ordered Referral Ordered: CR HIPS WES AP/LA ordered Referral Ordered: CR FEMUR Left ordered Referral Ordered: CR L-SPINE OBLIQUE 4 VIEWS ordered Referral Referred To: Ghulam Bansal [address] [place] [address] Drive [address] [place], [phone] Ordered: Referral: Ghulam Bansal. Evaluate and treat. Appointment date/timeframe: 12/31/2012 ordered Referral Referred To: Hubert Becker [address] [place], [address] [phone] Ordered: Referral: Hubert Becker. Evaluate and treat. Appointment date/timeframe: 06/28/2012 ordered Referral Referred To: Tamika Vazquez APRN [address] [place], [phone] Ordered: Referral: Tamika Vazquez APRN. Evaluate and [...] include increased fatigue, joint pain and myalgia. Hyperlipidemia Risk factors inc lude age over [...] palpitations, transient weakness and vomiting. Follow Up Hosp Visit hypertension The symptoms [...] Additional information: sees cardoiology again on 07/20/18 taken nitro chest pain The patient pres [...] office--got lightheaded--got out of car--stood up--passed out. Thyroid problems The severity of the problem [...] tremor, visual disturbances and vomiting. Musculoskeletal pain Severity le arnold is moderate. It occurs intermittently. The pain is aching, burning, dull and throbbing. Context: there is no injury. The pain is aggravated by bending, climbing (and descending) stairs, movement, walking and standing. Associated symptoms include decreased mobility, difficulty initiating sleep, joint instability, joint tenderness, nocturnal awakening, nocturnal pain, numbness and spasms. Hand Dominance: right. Dizziness The problem is c hronic. It [...] vomiting. Follow Up of hospital chest pain GERD The severity of the problem is moderate. The symptoms are intermittent. Symptoms are relieved by proton pump inhibitors. Associated symptoms include heartburn and nausea. Pertinent negatives include back pain, bloating, blood in stool, change in appetite, constipation, diaphoresis, diarrhea, dizziness, dyspnea, eructation, fever, flank pain, flatulence, hematuria, jaundice, lightheadedness, myalgia, rash, vaginal bleeding, vaginal discharge, vomiting, weight gain and weight loss. hypertension The symptoms beg an gradually. The severity has been described as being moderate. It is currently stable. Risk factors include high salt intake, inactive lifestyle and smoking. Pertinent negatives include chest pain, claudication, confusion, diaphoresis, dyspnea, epistaxis, fatigue, headache, hematuria, irregular heartbeat/palpitations, nausea, tinnitus, transient weakness, tremor, visual disturbances and vomiting. hypothyroidism Pt is here for f /u--hypthyroidism--recently [...] Relevant history is negative for alcohol use. back pain Onset: gradual w ith injury. Severity level is moderate. The problem is fluctuating. It occurs persistently. Location of pain is middle back and lower back.The patient describes the pain as an ache, burning, dull and numbness. Symptoms are aggravated by ascending stairs, bending, changing positions, daily activities, descending stairs, extension, flexion, sitting, standing, twisting and walking. Thyroid problems (FP) The severi ty of [...] transient weakness, tremor, visual disturbances and vomiting. vitamin D hypertension The symptoms beg an [...] hematuria, nausea, palpitations, transient weakness and vomiting. back pain Onset: gradual w [...] spine showed herniations at lower 3 levels. Earache Onset: gradual. Severity level is mild-moderate. [...] ringing in ears, tooth pain and vomiting. hypertension The symptoms beg an [...] Dominance: right. Additional information: neck and lbp. Hypothyroidism She states the s ymptoms are [...] right. Additional information: slipped off curb at [facility]--injured right knee and right foot--h/o stress [...] and vomiting. Musculoskeletal pain Onset: grad ual. Location: right foot. The pain is aggravated by bending, climbing (and descending) stairs, movement, walking and standing. Associated symptoms include decreased mobility, difficulty initiating sleep, joint instability, joint tenderness, limping, nocturnal awakening and nocturnal pain. Additional information: seeing DR Greenberg for stress fx right foot--in walking boot. Thyroid problems (FP) The severi ty of [...] next visit. Related to Essential (primary) hypertension Follow a low sodium diet. Relate d to Essential (primary) hypertension Prescribed activity/ exercise education Related to Prescribed activity/exercise education Dietary management e ducation, guidance, and counseling Related to Dietary Surveillance and Counseling Increase activity. Related to Es sential (primary) hypertension Lifestyle modificati ons advised and [...] Related to Gastro-esophageal reflux disease without esophagitis Dietary management e ducation, guidance, and counseling Related to Dietary Surveillance and Counseling Prescribed activity/ exercise education Related to Prescribed activity/exercise education declines mri Related to Acute pain of right shoulder Dietary management e ducation, guidance, and counseling [...] to Other intervertebral disc displacement, lumbosacral region Dietary management e ducation, guidance, and counseling [...] disease without esophagitis Increase activity. Related to Es sential (primary) hypertension Stop smoking. Related to Essen tial (primary) hypertension Follow a low sodium diet. Relate d to Essential (primary) hypertension Prescribed activity/ exercise education Related to Prescribed activity/exercise education Dietary management e ducation, guidance, and counseling Related to Dietary Surveillance and Counseling cefdinir x 10 days i nstructed to [...] Related to Dietary Surveillance and Counseling Follow a low sodium diet. Relate d to Essential (primary) hypertension Stop smoking. Related to Essen tial (primary) hypertension Increase activity. Related to Es sential (primary) hypertension Lifestyle modificati ons advised and [...] unspecified hyperlipidemia stop smoking Related to COPD Dietary management e ducation, guidance, and counseling Related to Overweight Prescribed activity/ exercise education Related to Overweight heat/ice prn Related to Lumba r disc herniation Patient advise to fo llow 2 gram sodium diet. Monitor blood pressure at home and bring values into next visit. Related to Hypertension, Unspecified Lifestyle modificati ons advised and encouraged. Related to GERD Follow a low sodium diet. Relate d to Hypertension, Unspecified Stop smoking. Related to Hyper tension, Unspecified Increase activity. Related to Hy pertension, Unspecified Lifestyle modificati ons advised and encouraged. Related to GERD tsh is utd Related to Unspe cified hypothyroidism Prescribed activity/ exercise education Related to Overweight Dietary management e ducation, guidance, and counseling Related to Overweight Avoid provocative fo ods: citrus, alcohol, coffee, chocolate, mints Related to GERD Assessments Type Assessment Date No Information
--- OUTSIDE RECORDS SUMMARY | 2023-11-09 05:45 | XMS_ITS ---
Author Organization [facility] Address [address] [place] [address] PRESTON Potts [phone] Care Team Providers Care Quality Review Trainer Name Role Phone Shoaib Marin Unavailable [phone] Allergies Allergen (clinical drug ingredient) Drug/Non Drug [...] Encounters Encounter Location Date Provider Diagnosis [facility] [address] [place] [address] PRESTON Potts [phone] 11/09/2023 Shoaib Marin Plan Of Treatment No Information Progress Notes * PARKERVALENTINOSOBIADANN MistryCHRISSYDOB:[birth year] (64 yo F)Acc No.[id number]:11/09/2023 Progress Notes Patient: SUELLEN WESTBROOK Provider: Char Marin M.D. :1960 A ge:62 Y S ex:Female Date:11/09/2023 Address:[address] [place], [place] [phone] Subjective: * Chief Complaints: * 1 . [...] Lumbar Disc Disease. * Surgical History: L [facility] of Chest 1964, Cholecystectomy 1980, Colonoscopy 2020. [...] Electronic signature of Nahomi Marin MD on 03/14/2025 at 09:57 AM EDT Sign off status: Pending * Provider: Char Marin M.D. Date: 0 11/09/2023 Generated for Ivanna ibarra/April/eTransmitting on: 0 03/14/2025 09:57 AM EDT History and Physical Notes * HPI (History of Present Illness) Category Sub-Category Detail Notes Category Not es Endocrinology Hypothyroidism Cardiology Blood Pressure Elevated Pt here for 6 mo f/u on hypertension, states she is doing well and does not have any concerns Hyperlipidemia pt is fasting today
--- OUTSIDE RECORDS SUMMARY | 2025-01-20 10:40 | XMS_ITS | Encounter Summary ---
Author Organization [facility] Address [address] 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 Jim Sierra MD [address] [address] Phone: tel: fax: Referral ID Status Reason Start Date Expiration Date V isits Requested Visits Authorized [id number] Authorized 01/20/2025 07/22/2026 1 1 Reason for Visit * Consultation (Routine) - Closed Specialty Diagnoses / Procedures Referred By Vianey riojas Referred To Contact Diagnoses 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 Jim Sierra MD [address] [address] Phone: tel: fax: Referral ID Status Reason Start Date Expiration Date Visits Re quested Visits Authorized [id number] Closed 10/07/2024 04/08/2026 1 1 Encounter Details Date Type Department Care Team (Late st Contact Info) Description 01/20/2025 10:40 AM EDT Office Visit [facility] Endocrinology [address] [place] [id number] Jim Sierra MD [address] [place] [address] 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 Electronically signed by: Jim Sierra MD [facility]CR[facility] [address] [facility] [place]. 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
--- OUTSIDE RECORDS SUMMARY | 2025-03-14 09:57 | XMS_ITS | Encounter Summary ---
Author Organization [facility] Address [address] [place] [address] Care Team Providers Care Yeast Culture Operator Name Role Phone Mandie Meng JEANNETTE Primary Care Provider [phone]- [phone] Reason for Visit * Reason Onset Date Comments HCN Clinical Concern/Question 02/01/2025 Encounter Details Date Type Department Care Team (Late st Contact Info) Description 02/01/2025 Telephone [facility] Endocrinology [address] [place] [address] Jim Sierra MD [address] [facility] [address] [place] [address] HCN Clinical Concern/Question Social History Tobacco Use Types Packs/Day Years [...] on file documented as of this encounter Miscellaneous Notes * Telephone Encounter - Marta Bennett RN - 02/09/2025 8:00 AM EDT Completed through My Chart Marta Bennett RN * Telephone Encounter - Jim Sierra MD - 02/07/2025 1:33 PM EDT 02/07/25 1:33 PM Sent MyChart to inform patient that thyroid is small due to longstanding hypothyroidism. We monitor thyroid levels to make sure levels remain in normal range. Jim Sierra MD Supervisor Speech of Endocrinology, Diabetes and Metabolism [facility] * Telephone Encounter - Marta Bennett RN - 02/06/2025 9:21 AM EDT Returned patient's call who states she had CT scan from PCP for swollen lymph node and it showed Thyroid was not visible . I explained Dr. Sierra could not advise on CT scan that PCP would have to advise. I requested her to get a copy and we will upload to Media for further recommendations. Patient verbalized understanding. Marta Bennett RN * Telephone Encounter - Tiana Mix - 02/01/2025 10:15 AM EDT Clinical Concern/Question Reason for Call: Patient would like a call back from clinical staff to discuss a CT scan that she had at [facility], that showed her thyroid was not visible. Best contact number: [phone] (home) Optimal time of day to reach caller: ANYTIME Additional comments/information from caller: None Note: Please do not reply to this message. Follow-up communication and further actions as a result of this message need to be communicated with the patient directly, if the patient is not active onMyChart. If the patient is active on MyChart, they will receive notification of the communication/outcome via TapDoghart. documented in this encounter Plan of Treatment Upcoming Encounters Date Type Department Care Team (Late st Contact Info) Description 04/28/2025 9:40 AM EDT Office Visit [facility] [address] [place] [address] Jim Sierra MD [address] [place] [address] documented as of this encounter [...] documented as of this encounter Care Teams Yeast Culture Operator Relationship Specialty Start Date End Date Mandie Meng APRN [address] [place] [address] PCP - General 09/02/24 documented as of this encounter
--- OUTSIDE RECORDS SUMMARY | 2025-03-14 09:58 | XMS_ITS | Patient Health Record ---
Author Organization [facility] Address [address] [facility] [address] [place] [id number] Care Team Providers Care M48 M60 Armor Crewman Name Role Phone Shoaib Marin Unavailable [phone] Allergies Allergen (clinical drug ingredient) Drug/Non Drug Allergy documented on EMR Reaction Allergy Type Onset Date Status Penicillin Unknown Drug Allergy Active Reason For Referral No Information Medications Medication SIG (Take, Route, Frequency, Duration) Notes Start Date End Date Status Sucralfate 1 GM 1 tab(s) orally 4 times a day (before meals and at bedtime); Duration: 15 days Active Calcium 600+D3 600-20 MG-MCG 1 tab(s) orally 2 times a day; Duration: 30 day(s) Active Famotidine 40 MG TAKE 1 TABLET BY MOUTH EVERY DAY AT BEDTIME; Duration: 90 days Active Spironolactone 25 MG 1 tab(s) orally onc e a day; Duration: 10 days Active Flonase Allergy Relief 50 MCG/ACT 1 spray in each nostril Nasally Once a day; Duration: 30 day(s) Active Azelastine HCl 137 MCG/SPRAY 2 spray(s) intranasally 2 times a day; Duration: 30 day(s) Active Metoprolol Tartrate 25 MG 1 tab(s) orally 2 times a day Active Slow Release Iron 160 (50 Fe) MG 1 tab(s) orally once a day 05/15/2022 Active Ranolazine ER 500 MG 1 tab(s) orally 2 times a day; Duration: 30 days Active Atorvastatin Calcium 20 MG 1 tab(s) orally once a day; Duration: 90 days Active Aspirin 81 MG 1 tab(s) chewed once a day; Duration: 30 day(s) Active Vitamin B Complex - 1 tab(s) orally once a day 05/15/2022 Active Levocetirizine Dihydrochloride 5 MG 1 tab(s) Orally At Bed Time; Duration: 15 days pt needs appt Active Montelukast Sodium 10 MG Take 1 tablet b y mouth once daily; Duration: 30 days due for check up Active Euthyrox 100 MCG 1 tab(s) orally once a day; Duration: 90 days Active Immunizations Vaccine Route Administration Date Status Comme nts Tetanus Tdap-Adacel (over 7yrs) Unknown 04/22/2018 Admi nistered Hepatitis B (20 and more) Unknown 06/05/2004 Administer ed COVID 19 Moderna Unknown 09/07/2020 Administered COVID 19 Moderna Unknown 10/19/2020 Administered COVID 19 Moderna Unknown 07/03/2021 Administered COVID 19 Moderna Unknown 12/19/2021 Administered Social History Tobacco Use: Social History Observation Description Date Details (start date - stop date) Current Smoker NA - NA CURRENT TOBACCO USE: Question Answer Notes Are you a: current smoker 10 Cigarettes [place] Problems Problem Type SNOMED Code ICD Code Onset Dates Problem Status W/U Status Risk Notes Problem Acquired hypothyroidism (516652531) Acquired hypothyroidism (E03.9) Active confirmed Problem COPD - Chronic obstructive pulmonary disease (46912832) Chronic obstructive pulmonary disease, unspecified COPD type (J44.9) Active confirmed Problem Atherosclerotic heart disease of [place] coronary artery without angina pectoris (081111597820668) Coronary artery disease involving [place] coronary artery of [place] heart without angina pectoris (I25.10) Active confirmed Problem Hyperlipidaemia (83196717) Hyperlipidemia, unspecified hyperlipidemia type (E78.5) Active confirmed Problem Abnormal liver function (72406859) Abnormal liver function (K76.89) Active confirmed Problem Allergic rhinitis (61575656) Non-seasonal allergic rhinitis, unspecified trigger (J30.89) Active confirmed Problem Tobacco user (169299891) Nicotine dependence, uncomplicated, unspecified nicotine product type (F17.200) Active confirmed Problem Gastroesophageal reflux disease (422842782) Gastroesophageal reflux disease, unspecified whether esophagitis present (K21.9) Active confirmed Problem Primary hypertension (63816986) Primary hypertension (I10) Active confirmed Plan Of Treatment No Information Medical (General) History Medical History History ICD Code Coronary Artery Disease Myocardial Infarction Hypertension Hyperlipidemia Hypothyroidism Sinus Allergy Depression Diverticulosis Arthritis sleep apnea COPD allergic rhinitis 60 pack year smoking history as of 2021 Colon polyps Intrinsic factor antibody Lumbar Disc Disease Surgical History Surgery Date(Month/Year) Lumpectomy [facility] 1965 Cholecystectomy 1980 Colonoscopy 2020
--- OUTSIDE RECORDS SUMMARY | 2025-03-14 09:58 | XMS_ITS | Clinical Summary ---
Author Organization [facility] Address [address] [place] [address] Care Team Providers Care Manual Winder Name Role Phone Taqueria Mandieluisa Evans APRN Primary Care Provider +1- [phone] Allergies Active Allergy Reactions Criticality Noted Date [...] EVERY 6 HOURS NEEDED FOR ALLERGY SYMPTOMS 04/08/20 24 Active Calcium Carb-Cholecalci ferol 600-12.5 MG-MCG capsule Take 1 capsule by mouth 1 (one) time each day. Active colchicine (Colcrys) 0.6 MG tablet Take 1 tablet (0.6 mg) by mouth twice a day. Active colestipol (Colestid) 1 g tablet Take 1 tablet (1 g) by mouth twice a day. Active cyanocobalamin (Vitamin B-12) 1000 MCG/ML injection INJECT 1 ML (CC) INTRAMUSCULARLY ONCE EVERY MONTH 08/08/19 25 Active denosumab (Prolia) 60 MG/ML injection Inject [...] 1.5 mL (284 mg) under the skin. 05/27/20 24 Active indomethacin (Indocin) 50 MG capsule Take 1 capsule (50 mg) by mouth. Active levocetirizine (Xyzal) 5 MG tablet Take 1 tablet (5 mg) by mouth 1 (one) time each day. Active metoprolol tartrate (Lopressor) 25 MG tablet Take 1 tablet (25 mg) by mouth twice a day. 06/21/20 24 Active montelukast (Singulair) 10 MG tablet Take 1 tablet (10 mg) by mouth 1 (one) time each day. Active ranolazine (Ranexa) 500 MG 12 hr tablet Take 1 tablet (500 mg) by mouth twice a day. 06/09/20 24 Active spironolactone (Aldactone) 25 MG tablet Take 1 tablet (25 mg) by mouth daily. 07/23/19 25 Active sucralfate (Carafate) 1 g tablet Take 1 tablet (1 g) by mouth 4 times a day. Active nitroglycerin (Nitrodur) 0.4 MG/HR patch Place 1 patch on the skin daily. Active ferrous gluconate (Fergon) 324 (38 Fe) MG tablet Take 1 tablet (324 mg) by mouth daily with breakfast. Active levothyroxine (Synthroid, Levoxyl) 125 MCG tabletIndicatio ns:Hypothyroidi sm due to Roger thyroiditis Take 1 tablet by mouth daily. 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] (ABNORMAL) TSH (01/11/2025 10:28 AM EDT) Pathologist [facility] Thyroid Stimulating Hormone, Plasma 0.03(L) 0.40 - 4.20 uIU/mL 01/11/2025 1:23 PM EDT [facility] Blood Venous blood specimen / Unknown Venipuncture / Unknown 01/11/2025 10:28 AM EDT 01/11/2025 10:28 AM EDT us Jim Sierra MD LAB BLOOD ORDERABLES Final R esult Performing Organization Address City/[facility]/ZIP Co de Phone Number [facility] [address] [place] [address] * (ABNORMAL) T4, free (01/11/2025 10:28 AM EDT) [facility] Free T4, Plasma 1.9(H) 0.8 - 1.7 ng/dL 01/11/2025 1:23 PM EDT [facility] Blood Venous blood specimen / Unknown Venipuncture / Unknown 01/11/2025 10:28 AM EDT 01/11/2025 10:28 AM EDT us Jim Sierra MD LAB BLOOD [place] [address] * [place] Hepatitis C Antibody (02/23/2020 7:07 PM EDT) [facility] Hepatitis C Ab NEGATIVE Reference Range: Negative SUNQUEST 02/23/2020 7:07 PM EDT 02/23/2020 7:23 PM EDT us Yumiko Kimbrough MD LAB BLOOD ORDERABLES Final Re sult SUNQUEST from Last 3 Months or Most Recently Relevant to Health Maintenance Insurance [facility] MEDICARE Care Teams Manual Winder Relationship Specialty Start Date End Date Mandie Meng, JEANNETTE [address] [place] [address] PCP - General 09/02/24
--- OUTSIDE RECORDS SUMMARY | 2025-03-14 09:58 | XMS_ITS | Encounter Summary ---
Author Organization Healthcare Address [address] [place] [address] Care Team Providers Care Event Operations Manager Name Role Phone Mandie Meng JEANNETTE Primary Care Provider +1- [phone] Encounter Details Date Type Department Care Team (Late st Contact Info) Description 01/11/2025 Results Follow-Up [facility] [address], [address] [place] [address] [place] [address] [place] [address] [address] [place] [address] Social History Tobacco Use Types Packs/Day Years Used Date Smoking Tobacco: Former Cigarettes Q uit: 2022 Smokeless Tobacco: Never Alcohol Use Standard Drinks/Week Comments Not Currently 0 (1 standard drink = 0.6 oz pur e alcohol) PHQ-2 Answer Date Recorded Patient Health Questionnaire-2 Score 2 01/20/2025 PHQ-9 Answer Date Recorded Patient Health Questionnaire-9 Score 8 01/20/2025 Comments Unknown Sex and Gender Information Value [...] energy Nearly every day 01/20/2025 10:50 AM EDCarolina Alex Poor appetite or overeating Several days 01/20/2025 10 :50 AM EDCarolina Alex Feeling bad about yourself - or that you are a failure or have let yourself or your family down Several days 01/20/2025 10:50 AM Carolina Soto Trouble concentrating on things, such as reading the newspaper or watching television Not at all 01/20/2025 10:50 AM Carolina Soto Moving or speaking so slowly that other people could have noticed? Or the opposite - being so fidgety or restless that you have been moving around a lot more than usual. Not at all 01/20/2025 10:50 AM Carolina Soto Thoughts that you would be better off or hurting yourself in some way Not at all 01/20/2025 10:50 AM EDCarolina Alex Patient Health Questionnaire-9 Score 8 01/20/2025 10:50 AM JIMMYT Carolina Foote documented as of this encounter Plan of Treatment Upcoming Encounters Date Type Department Care Team (Late st Contact Info) Description 04/28/2025 9:40 AM EDT Office Visit [facility] Endocrinology [address] [place] [address] Jim Sierra MD [address] [facility] [address] [place] [address] documented as of this encounter Visit Diagnoses Not on filedocumented in this encounter Additional Health Concerns Assessment Noted Time A Body Mass Index follow-up plan has been documented for the patient 10/14/2024 9:16 AM EDT documented as of this encounter Care Teams Event Operations Manager Relationship Specialty Start Date End Date Mandie Meng APRN [address] [id number] PCP - General 09/02/24 documented as of this encounter
--- OUTSIDE RECORDS SUMMARY | 2025-03-14 09:58 | XMS_ITS | Encounter Summary ---
Author Organization Healthcare Address [address] [place] [address] Care Team Providers Care Bioinformatics Assistant Name Role Phone Mandie Meng JEANNETTE Primary Care Provider +1- [phone] Encounter Details Date Type Department Care Team [...] Description 04/28/2025 9:40 AM EDT Office Visit [facility] Endocrinology [address] [place] [address] Jim Sierra MD [address] [facility] [address] [place] [address] documented as of this encounter [...] documented as of this encounter Care Teams Bioinformatics Assistant Relationship Specialty Start Date End Date Mandie Meng APRN [address] [place] [address] PCP - General 09/02/24 documented as of this encounter
--- OUTSIDE RECORDS SUMMARY | 2025-03-14 09:58 | XMS_ITS | Clinical Summary ---
Author Organization [facility] Address [address] [place] [address] Care Team Providers Care Veterinary Inspector Name Role Phone Mandie Meng APRN Primary Care Provider + [phone] Allergies Active Allergy Reactions Criticality Noted Date [...] Description 12/14/2024 8:45 AM EDT Office Visit [facility] [address] [address] Wilner Fish DO Primary osteoarthritis involving multiple joints (Primary Dx); HUE positive 12/14/2024 Travel from Last 3 Months Family History [...] Description 04/26/2025 1:30 PM EDT Office Visit [facility] CARDI[facility] [address] [place] [address] Cabrera Phillips PA [address] [place] [address] 05/12/2025 12:00 PM EST Appointment [facility] CARDIOLOG[facility] OF [address] [address] 05/26/2025 9:30 AM EST Office Visit [facility] HEMAT[facility] & ONCOLOGY [address] [facility] [address] [place] [phone] Montana Goldberg MD [address] [facility] [address] [place] [address] Health Maintenance Due Date Last Done Comments [...] WELLNESS VISIT 05/16/2019 COVID-19 Vaccine (5 - 2024-2 6 season) 2025 12/19/2021, 07/03/2021, 10/19/2020, Additional history exists INFLUENZA VACCINE 04/05/2025 LIPID PANEL 07/14/2025 07/14/2024, 06/18/2021 TDAP/TD VACCINES (2 - Td or Tdap) 04/22/2028 018 HEPATITIS C SCREENING Completed 07/14/2024 Goals Goal Patient Goal Type Associated Problems Recent Progress Patient-Stated? Author Specialty Pharmacy General Goal General On track(11/19/19 11:40 AM EDT) No Airam Boogie, PharmD Note: LDL less than 55 11/18/24 BELINDA: LDL at goal at 44 on 04/07/24 Procedures Procedure Name Priority Date/Time Associated Diagnosis Comments LIPID PANEL Routine 07/14/2024 2:46 PM EST CAD, multiple vessel Mixed hyperlipidemia Dyslipidemia HEPATITIS PANEL, ACUTE Routine 07/14/2024 2:46 PM EST Arthralgia, unspecified joint Fatigue, unspecified type HUE positive Elevated sed rate Primary osteoarthritis involving multiple joints from Last 3 Months or Most Recently Relevant to Health Maintenance Results * Hepatitis Panel, Acute (07/14/2024 2:46 PM EST) Pathologist [facility] Hepatitis B Surface Ag Non-Reacti ve Non-Reacti ve 07/14/2024 11:58 PM EST [facility] Hep A IgM Non-Reacti ve Non-Reacti ve 07/14/2024 11:58 PM EST [facility] Hep B C IgM Non-Reacti ve Non-Reacti ve 07/14/2024 11:58 PM EST [facility] Hepatitis C Ab Non-Reacti ve Non-Reacti ve 07/14/2024 11:58 PM EST [facility] Blood Venipuncture / Unknown 07/14/2024 2:46 PM EST 07/14/2024 2:47 PM EST Narrative [facility] - 07/14/2024 11:58 PM EST Results may be falsely decreased if patient taking Biotin. Wilner Fish DO LAB BLOOD ORDERABLES F inal Result [facility]
[address] [place] [address], * (ABNORMAL) Lipid Panel (07/14/2024 2:46 PM EST) Pathologist [facility] Total Cholesterol 125 0 - 200 mg/dL 07/14/2024 11:54 PM EST [facility] Triglycerides 173(H) 0 - 150 mg/dL 07/14/2024 11:54 PM EST [facility] HDL Cholesterol 42 40 - 60 mg/dL 07/14/2024 11:54 PM EST [facility] LDL Cholesterol 54 0 - 100 mg/dL 07/14/2024 11:54 PM EST [facility] VLDL Cholesterol 29 5 - 40 mg/dL 07/14/2024 11:54 PM EST [facility] LDL/HDL Ratio 1.15 07/14/2024 11:54 PM EST [facility] Blood Venipuncture / Unknown 07/14/2024 2:46 PM EST 07/14/2024 2:47 PM EST Narrative [facility] - 07/14/2024 11:54 PM EST Cholesterol [...] RUEDA LAB BLOOD ORDERABLES Final R esult [facility]
[address] [place] [address], from Last 3 Months or Most Recently Relevant to Health Maintenance Insurance [facility] MEDICARE ADVANTAGE HMO Care Teams Veterinary Inspector Relationship Specialty Start Date End Date Mandie Meng APRN [address] [address] [place], [place] [id number] PCP - General Internal Medicine 09/16/23
--- OUTSIDE RECORDS SUMMARY | 2025-03-14 09:58 | XMS_ITS ---
Author Organization [facility] Address [address] [id number] Care Team Providers Care Contact Lens Edge Buffer Name Role Phone Mandie Meng APRN Primary Care Provider + [phone] Hyperlipidemia Status:Enrolled (Active) Start date:02/19/2024 Enrollment date:02/19/2024 Enrollment reason:New start at Current support & services provided:Clinical Assessment, Refill Coordination , Benefits Investigation, [facility] [place] Dispensing Linked medications:Inclisiran Sodium (Active) Linked problems:Dyslipidemia (Active) Case Team Name Relationship Phone Airam Boogie PharmD(Responsible Staff) Pharmacis t [phone] Continued Care and Services Coordination
[2025-03-14 11:08] LABS: Free T4 (Free Thyroxine) 1.65 ng/dl (0.78-2.19)
[2025-03-14 11:23] LABS: Thyroid Stimulating Hormone 0.06 uIU/mL (0.465-4.68)
== END 2025-03-14 23:59 | disposition home or self-care (01) ==
LOC: LAB 09:47
PROVIDERS: PCP Nurse Practitioner Family; Visit Provider Internal Medicine Endocrinology, Diabetes & Metabolism
DX: E06.3 Autoimmune thyroiditis (principal)
CPT/HCPCS: 36415; 84439; 84443

== ENCOUNTER 2025-03-23 09:47 | Outpatient (CLI) | payer MEDICARE, SELFPAY ==
--- OUTSIDE RECORDS SUMMARY | 2020-10-08 06:40 | XMS_ITS | Continuity of Care Document ---
Author Organization [facility] [employer] chapelo Address [address] [place] [address] Phone Care Team Providers Care Sound Designer Name Role Phone Breeding , Geraldo Unavailable [...] Location Reason(s) For Visit Diagnoses Date Provider [facility], [address] [place] [address], Formerly [facility], tel:[phone] [address] [place] [address] No Information . [address] [place] [address], [id number], [place]. tel:[phone], [address], tel:[phone] [address] [place] [address] No Information October. [address] [place], [place], [id number], [place]. tel:[phone], [address], [place] tel:[phone] [address] [place] [address] No Information 9 [facility]. [address] [place], [place], [id number], [place]. tel:[phone], [address], [place] tel:[phone] [facility] Visit for screening mammogramAge-rela hanna osteoporosis without current pathological fracture Carmenoctober. [address] [place] [address], [id number], . tel:[phone] [facility], [address] [place] [address], [facility], tel:[phone] [address] [place] [address] Musculoskeletal pain (chief complaint)hypert ension (chief complaint)Hyperl ipidemia (chief complaint) Acute pain of right kneeJoint effusionStatus post fallMyalgiaEssent ial hypertensionPure hypercholesterole miaVitamin D deficiencyVitamin B12 deficiency anemia due to selective vitamin B12 malabsorption with proteinuria Oct-3 [facility] [place] [address], [id number], . tel:[phone] [facility], [address] [place] [address], [facility], tel:[phone] [address] [place] [address] Follow Up Hosp Visit (chief complaint)hypert ension (chief complaint)Hyperl ipidemia (chief complaint) Unstable anginaOverweightD ietary counseling and surveillancePresc ribed Activity/Exercise CounselingArthrop athy, unspecifiedChroni c obstructive pulmonary disease, unspecifiedEssent ial hypertensionHyper lipidemia, unspecifiedHypoth yroidism, unspecified typeOther fatigueGastroesop hageal reflux disease without esophagitisOther hyperlipidemia Jun-0 [facility]. [address] [place] [address], [id number], [place]. tel:[phone] [facility], [address] [place] [address], [address], [place] tel:[phone] [facility] No Information Jun-0 [facility]. [address] [place] [address], [id number], . tel:[phone] [facility], [address] [place] [address], [address], [place] tel:[phone] [facility] No Information 8 [address] Van. [address] [place], [place], [id number], [place]. tel:[phone] [facility], [address] [place] [address], [address], [place] tel:[phone] [facility] chest pain (chief complaint)taken nitro (chief complaint) OverweightDietary counseling and surveillancePresc ribed Activity/Exercise CounselingChest pain, unspecified type 8 Bisbee Van. [address] [place], [place], [id number], [place]. tel:[phone] [facility], [address] [place] [address], [address], [place] tel:[phone] [facility] Headaches (chief complaint)Blurry vision (chief complaint) Body mass index (BMI) 28.0-28.9, adultDietary counseling and surveillanceMyopi a of both eyes with astigmatism and presbyopiaUnspeci fied astigmatism, bilateralPresbyop iaFrequent headachesNuclear sclerosis of both eyes 8 Amari Bush. [address] [place] [address], [id number], [place]. tel:[phone] [facility], [address] [place] [address], [address], [place] tel:[phone] [address] [place] [address] Medical Clinic hypertension (chief complaint)Hyperl ipidemia (chief complaint) OverweightDietary counseling and surveillancePresc ribed Activity/Exercise CounselingEssenti al hypertensionCardi ac murmur, unspecifiedHyperl ipidemia, unspecifiedHypoka lemiaHypomagnesem iaHypothyroidism, unspecified typeVitamin D deficiencyVitamin B12 deficiency anemia due to selective vitamin B12 malabsorption with proteinuria 8 VazquezMara Anitha. [address] [place] [address], [id number], [place]. tel:[phone] [facility], [address] [place] [address], [address], [place] tel:[phone] [facility] Follow Up of hypertension (chief complaint) OverweightDietary counseling and surveillancePresc ribed Activity/Exercise CounselingTachyca issacia Juaquin Gayle. [address] [place] [address], [id number], [place]. tel:[phone] [facility], [address] [place] [address], [address], [place] tel:[phone] [address] [place] [address] hypertension (chief complaint)Cold symptoms (chief complaint) OverweightDietary counseling and surveillancePresc ribed Activity/Exercise CounselingEssenti al hypertensionPost- nasal dripVertigoCoughN ear syncopeCervicalgi a [facility] October. [address] [place] [address], [id number], [place]. tel:[phone] [facility], [address] [place] [address], [facility], [place] tel:[phone] [address] [place] [address] Medicare preventive (chief complaint) OverweightDietary counseling and surveillancePresc ribed Activity/Exercise CounselingMedicar e annual wellness visit, subsequent [facility] October. [address], [place], [id number], [place]. tel:[phone] [facility], [address] [place] [address], [address], [place] tel:[phone] [address] [place] [address] GERD (chief complaint) Body mass index (BMI) 28.0-28.9, adultDietary counseling and surveillancePresc ribed Activity/Exercise CounselingSyncope and collapseGastroeso phageal reflux disease without esophagitisIdiopa thic hypotensionOther specified hypotensionDiarrh ea, unspecified typeNauseaDehydra tionMyalgiaHypoka lemiaHypomagnesem ia [facility] October. [address] [place], [place], [id number], [place]. tel:[phone] [facility], [address] [place] [address], [address], [place] tel:[phone] [address] [place] [address] [facility] Visit for screening mammogram [facility] October. [address] [place], [place], [id number], . tel:[phone] [facility], [address] [place] [address], [address], tel:[phone] [facility] Musculoskeletal pain (chief complaint)Thyroi d problems (chief complaint)hypert ension (chief complaint) OverweightDietary counseling and surveillancePresc ribed Activity/Exercise CounselingEssenti al (primary) hypertensionOther intervertebral disc displacement, lumbosacral regionHypothyroid ism, unspecified typeVitamin D deficiencyVitamin B12 deficiency anemia due to selective vitamin B12 malabsorption with proteinuriaArthro rachna, unspecifiedDyspha jenni, unspecified type [facility] October. [address] [place], [place], [id number], [place]. tel:[phone] [facility], [address] [place] [address], [facility], tel:[phone] [address] [place] [address] Dizziness (chief complaint) OverweightDietary counseling and surveillanceOther specified counselingBenign paroxysmal positional vertigo due to bilateral vestibular disorderMeniere's disease of both ears 7 Gloria Drew. [address] [place] [address], [id number], [place]. tel:[phone] [facility], [address] [place] [address], [address], [place] tel:[phone] [address] [place] [address] Thyroid problems (FP) (chief complaint)Muscul oskeletal pain (chief complaint) OverweightDietary counseling and surveillanceOther specified counselingEssenti al (primary) hypertensionHypot hyroidism, unspecified typeOther intervertebral disc displacement, lumbosacral regionMononeuropa thy, unspecifiedHyperl ipidemia, unspecifiedVitami n D deficiencyVitamin B12 deficiency anemia due to selective vitamin B12 malabsorption with proteinuriaLeft ankle pain, unspecified chronicityFoot pain, bilateralPain in left foot [facility] October. [address], [place], [id number], [place]. tel:[phone] [facility], [address] [place] [address], [address], [place] tel:[phone] [facility] Follow Up of hospital (chief complaint)hypert ension (chief complaint)Hyperl ipidemia (chief complaint) OverweightDietary counseling and surveillanceOther specified counselingChest pain in adultChronic obstructive pulmonary disease, unspecifiedEssent ial (primary) hypertensionHyper lipidemia, unspecified [place] [facility]. [address], [place], [id number], [place]. tel:[phone] [facility], [address] [place] [address], [address], [place] tel:[phone] [facility] No Information VazquezCarmenoctober. [address] [place], [place], [id number], [place]. tel:[phone] [facility], [address] [place] [address], [address], [place] tel:[phone] [facility] chest pain (chief complaint) OverweightDietary counseling and surveillanceOther specified counselingChest pain in adult VazquezCarmenoctober. [address] [place], [place], [id number], [place]. tel:[phone] [facility], [address] [place] [address], [address], [place] tel:[phone] [facility] No Information VazquezCarmenoctober. [address] [place], [place], [id number], [place]. tel:[phone] [facility], [address] [place] [address], [address], [place] tel:[phone] [address] [address] [facility] hypothyroidism (chief complaint)hypert ension (chief complaint)GERD (chief complaint) OverweightDietary counseling and surveillanceOther specified counselingHypothy roidism, unspecified typeGastro-esopha geal reflux disease without esophagitisOther long-term (current) drug therapyEssential (primary) hypertensionHisto ry of rhabdomyolysisMix ed hyperlipidemiaVit sanford D deficiency Carmenoctober. [address] [place] [address], [id number], . tel:[phone] [facility], [address] [place] [address], [address], [place] tel:[phone] [facility] Thyroid problems (FP) (chief complaint) OverweightDietary counseling and surveillanceOther specified counselingHypothy roidism, unspecified hypothyroidism type [facility]ctober. [address] [place], [place], [id number], [place]. tel:[phone] [facility], [address] [place] [address], [address], [place] tel:[phone] [facility] Partial loss of teeth, unspecified cause, unspecified class Senatobia Kellee. [address] [place] [address], [id number], [place]. tel:[phone] [facility], [address] [place] [address], [address], [place] tel:[phone] [facility] Musculoskeletal pain (chief complaint) OverweightDietary counseling and surveillanceOther specified counselingAcute pain of right shoulderAcute pain of right kneeOther intervertebral disc displacement, lumbosacral region October. [address] [place] [address], [id number], [place]. tel:[phone] [facility], [address] [place] [address], [address], [place] tel:[phone] [facility] Low back pain with sciatica, sciatica laterality unspecified, unspecified back pain laterality, unspecified chronicity Carmenoctober. [address] [place], [place], [id number], [place]. tel:[phone] [facility], [address] [place] [address], [address], [place] tel:[phone] [address] [place] [address] Medicare preventive (chief complaint) OverweightDietary counseling and surveillanceOther specified counselingEncount er for general adult medical examination without abnormal findingsArthropat hy, unspecifiedHip pain, bilateralPain in left hipRight knee pain, unspecified chronicityPain of right upper extremityMid back pain October. [place], [place], [id number], [place]. tel:[phone] [facility], [address] [place] [address], [address], [place] tel:[phone] [address] [place] [address] Thyroid problems (FP) (chief complaint)back pain (chief complaint)hypert ension (chief complaint) OverweightDietary counseling and surveillanceOther specified counselingEssenti al (primary) hypertensionHyper lipidemia, unspecifiedOther vitamin B12 deficiency anemiasVitamin D deficiency, unspecifiedArthro rachna, unspecifiedOther intervertebral disc displacement, lumbar regionOther myositis, unspecified siteFall, initial encounter Carmenoctober. [address], [place], [id number], [place]. tel:[phone] [facility], [address] [place] [address], [address], [place] tel:[phone] [address] [place] [address] Visit for screening mammogram [facility]enoctober. [address] [place] [address], [id number], [place]. tel:[phone] [facility], [address] [place] [address], [address], [place] tel:[phone] [address] [place] [address] [facility] No Information Beto Goodson. [address] [place] [address], [id number], [place]. tel:[phone] [facility], [address] [place] [address], [address], [place] tel:[phone] [address] [address] [facility] Hypokalemia Carmenoctober. [address] [place], [place], [id number], [place]. tel:[phone] [facility], [address] [place] [address], [address], [place] tel:[phone] [address] [address] Dental Clinic No Information 7 Beto Goodson. [address] [place] [address], [id number], [place]. tel:[phone] [facility], [address] [place] [address], [address], [place] tel:[phone] [address] [address] [facility] vitamin D (chief complaint)hypert ension (chief [...] unspecifiedCoughL ow blood potassium 7 Vazquez-Carmen October. [address] [place] [address], [id number], [place]. tel:[phone] [facility], [address] [place] [address], [address], tel:[phone] [facility] Dental caries, unspecified 7 Beto Hernandezecca. [address] [place] [address], [id number], [place]. tel:[phone] [facility], [address] [place] [address], [address], [place] tel:[phone] [address] [place] [address] [facility] Clinic No Information 6 Beto Hernandezecca. [address] [place] [address], [id number], . tel:[phone] [facility], [address] [place] [address], [address], [place] tel:[phone] [address] [place] [address] Dental Clinic No Information 6 Senatobia Kellee. [address] [place] [address], [id number], [place]. tel:[phone] [facility], [address] [place] [address], [address], [place] tel:[phone] [facility] Necrosis of pulp 6 Senatobia Kellee. [address] [place] [address], [id number], [place]. tel:[phone] [facility], [address] [place] [address], [address], [place] tel:[phone] [facility] Thyroid (chief complaint)hypert ension (chief complaint)Hyperl ipidemia (chief complaint) OverweightDietary counseling and surveillanceOther specified counselingHypothy roidism, unspecified hypothyroidism typeEssential (primary) hypertensionVitam in D deficiency, unspecifiedVitami n B12 deficiency anemia due to selective vitamin B12 [address]absorption [address] proteinuriaEncoun ter for general adult medical examination without abnormal findings 6 [facility] October. [address] [place] [address], [id number], [place]. tel:[phone] [facility], [address] [place] [address], [address], [place] tel:[phone] [address] [place] [address] [facility] No Information 6 [facility]. [address] [place] [address], [id number], [place]. tel:[phone] [facility], [address] [place] [address], [address], [place] tel:[phone] [facility] Dental caries, unspecified 6 [facility]. [address] [place] [address], [id number], [place]. tel:[phone] [facility], [address] [place] [address], [address], [place] tel:[phone] [facility] back pain (chief complaint)Earach e (chief complaint) OverweightDietary counseling and surveillanceOther specified counselingOther intervertebral disc displacement, lumbosacral regionCervicalgia MyalgiaMononeurop athy, unspecified VazquezCarmenoctober. [address] [place] [address], [id number], . tel:[phone] [facility], [address] [place] [address], [address], tel:[phone] [facility] Musculoskeletal pain (chief complaint)hypert ension (chief complaint) Body mass index (BMI) 29.0-29.9, adultDietary counseling and surveillanceOther specified counselingCervica lgiaMyalgiaOther intervertebral disc displacement, lumbosacral region [facility]. [address], [place], [id number], [place]. tel:[phone] [facility], [address] [place] [address], [address], [place] tel:[phone] [address] [place] [address] [facility] No Information Senatobia Kellee. [address] [place] [address], [id number], [place]. tel:[phone] [facility], [address] [place] [address], [address], [place] tel:[phone] [facility] Necrosis of pulp 6 [facility]. [address] [place] [address], [id number], [place]. tel:[phone] [facility], [address] [place] [address], [address], [place] tel:[phone] [facility] Hypothyroidism (chief complaint)hypert ension (chief complaint) Obesity, unspecifiedDietar y counseling and surveillanceOther specified counselingEssenti al (primary) hypertensionHypot hyroidism, unspecified hypothyroidism typeGastro-esopha geal reflux disease without esophagitisOther intervertebral disc displacement, lumbosacral regionOther vitamin B12 deficiency anemiasVitamin D deficiency, unspecified Carmenoctober. [address] [place] [address], [id number], [place]. tel:[phone] [facility], [address] [place] [address], [address], [place] tel:[phone] [facility] No Information 6 Keyla Susan. [address] [place] [address], [address]. tel:[phone] [facility], [address] [place] [address], [address], [place] tel:[phone] [facility] Encounter for dental exam and cleaning w abnormal findings 6 Beto Kellee. [address] [place] [address], [id number], [place]. tel:[phone] [facility], [address] [place] [address], [facility], [place] tel:[phone] [facility] Visit for screening mammogram VazquezCarmenoctober. [address] [place] [address], [id number], . tel:[phone] [facility], [address] [place] [address], [address], [place] tel:[phone] [facility] Cold symptoms (chief complaint) Obesity, unspecifiedDietar y counseling and surveillanceOther specified counselingAllergi c rhinitis, unspecifiedAcute maxillary sinusitis, recurrence not specified 6 Rukhsana Baker. [address] [place] [address], [facility]. tel:[phone] [facility], [address] [place] [address], [address], [place] tel:[phone] [address] [place] [address] [facility] Thyroid problems (FP) (chief complaint)hypert ension (chief complaint) Obesity, unspecifiedDietar y counseling and surveillanceOther specified counselingEssenti al (primary) hypertensionHypot hyroidism, unspecified hypothyroidism typeOther hyperlipidemiaOth er vitamin B12 deficiency anemiasVitamin D deficiency, unspecifiedChroni c obstructive pulmonary disease, unspecifiedEncoun ter for general adult medical examination without abnormal findings 6 [facility]. [address], [place], [id number], [place]. tel:[phone] [facility], [address] [place] [address], [facility], tel:[phone] [address] [place] [address] Musculoskeletal pain (chief complaint)Back pain (chief complaint)hypert ension (chief complaint) Obesity, unspecifiedDietar y counseling and surveillanceOther specified counselingEssenti al (primary) hypertensionVitam in B12 deficiency anemia due to selective vitamin B12 malabsorption with proteinuriaFoot pain, rightLow back pain with sciatica, sciatica laterality unspecified, unspecified back pain lateralityHypothy roidism, unspecified hypothyroidism type [facility] October. [address] [place] [address], [id number], . tel:[phone] [facility], [address] [place] [address], [facility], tel:[phone] [address] [place] [address] Thyroid problems (FP) (chief complaint)hypert ension (chief complaint)Hyperl ipidemia (chief complaint) ObesityDietary surveillance and counselingExercis e counselingHyperte nsion, UnspecifiedOther and unspecified hyperlipidemiaVit sanford D deficiencyUnspeci fied hypothyroidismOth er vitamin B12 deficiency anemiaRoutine medical exam Mar- [facility] October. [address] [place] [address], [id number], . tel:[phone] [facility], [address] [place] [address], [facility], [place] tel:[phone] [facility] Musculoskeletal pain (chief complaint) ObesityDietary surveillance and counselingExercis e counselingRoutine gynecological examinationKnee pain, acute 5 [facility]. [address] [place] [address], [id number], [place]. tel:[phone] [facility], [address] [place] [address], [facility], [place] tel:[phone] [facility] Thyroid problems (FP) (chief complaint)hypert ension (chief complaint) Hypertension, UnspecifiedOther and unspecified hyperlipidemiaUns pecified hypothyroidismTob acco use disorderRoutine medical examPeripheral neuropathy, UnspecHeart murmurObesityKnee pain [facility] October. [address], [place], [id number], [place]. tel:[phone] [facility], [address] [place] [address], [address], [place] tel:[phone] [address] [place] [address] [facility] Visit for screening mammogramStress fracture of metatarsals [facility] October. [address], [place], [id number], [place]. tel:[phone] [facility], [address] [place] [address], [address], [place] tel:[phone] [address] [place] [address] Thyroid problems (FP) (chief complaint)hypert ension (chief complaint)Hyperl ipidemia (chief complaint)Muscul oskeletal pain (chief complaint) Stress fracture of metatarsalsUnspec ified hypothyroidismCOP DGERDHypertension , UnspecifiedOther and unspecified hyperlipidemiaRou richard medical examOverweight [facility] October. [address], [place], [id number], [place]. tel:[phone] [facility], [address] [place] [address], [id number], [place] tel:[phone] [address] [place] [address] MRI Follow Up (chief complaint)Sinus symptoms (acute) (chief complaint)back pain (chief complaint) Lumbar disc herniationSciatic aNeuropathyUpper respiratory infection, acuteAllergic rhinitis [facility] October. [address], [place], [id number], [place]. tel:[phone] [facility], [address] [place] [address], [address], [place] tel:[phone] [address] [place] [address] Lumbago [facility] October. [address] [place], [place], [id number], [place]. 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 . [facility], [address] [place] [address], [address], [place] tel:[phone] [facility] musculoskeletal pain (chief complaint) Hypertension, UnspecifiedGERDUn specified hypothyroidismCOP DMyalgia and myositis, unspecifiedHeart murmurFoot pain 4 [facility] October. [address] [place] [address], [id number], [place]. tel:[phone] [facility], [address] [place] [address], [address], tel:[phone] [facility] Musculoskeletal pain (chief complaint)GERD (chief complaint) LumbagoGERDUnspec ified hypothyroidismTob acco use disorderCOPDOverw eight 4 [facility] October. [address] [place] [address], [id number], [place]. tel:[phone] [facility], [address] [place] [address], [address], [place] tel:[phone] [address] [place] [address] allergic rhinitis (chief complaint)produc tive cough (chief complaint)conges tion (chief complaint)tobacc o use (chief complaint) Allergic rhinitisCoughToba account development specialist use 4 [facility]. [address] [place] [address], [id number], [place]. tel:[phone] [facility], [address] [place] [address], [address], [place] tel:[phone] [address] [place] [address] cold symptoms (chief complaint)thyroi d problems (chief complaint) Bronchitis, AcuteHypothyroidi smTobacco AbuseGERDFatigue / MalaiseOther and unspecified hyperlipidemiaPer ipheral neuropathy, Unspec [facility]. [address] [place] [address], [id number], [place]. tel:[phone] [facility], [address] [place] [address], [address], [place] tel:[phone] [facility] Visit for screening mammogram [facility]. [address] [place], [place], [id number], [place]. tel:[phone] [facility], [address] [place] [address], [address], [place] tel:[phone] [facility] cold symptoms (chief complaint)numbne ss right hand (chief complaint) Upper Respiratory Infection, AcuteAllergic rhinitis, cause unspecifiedPeriph eral neuropathy, UnspecHypothyroid ismHypertension, Unspecified [facility]. [address] [place] [address], [id number], [place]. tel:[phone] [facility], [address] [place] [address], [address], [place] tel:[phone] [facility] thyroid problems (chief complaint)cold symptoms (chief complaint)arthal gias (chief complaint) Pain in joint involving pelvic region and thighLumbagoArthr opathyMyalgia and myositis, unspecifiedHypoth yroidismTobacco AbuseFatigue / Malaise [facility]. [address] [place] [address], [id number], [place]. tel:[phone] [facility], [address] [place] [address], [address], [place] tel:[phone] [facility] thyroid problems (chief complaint) HypothyroidismTob acco AbuseGERD [facility] October. [address] [place] [address], [id number], [place]. tel:[phone] [facility], [address] [place] [address], [address], [place] tel:[phone] [facility] pain in rt side under rt arm (chief complaint)rt shoulder pain , to back (chief complaint)pain under rt ribs (chief complaint)back pain (chief complaint) Muscle spasm of back 3 Deon Miller. [address] [place] [address], [address]. tel:[phone] [facility], [address] [place] [address], [address], [place] tel:[phone] [facility] Hemorrhage of rectum and anus 3 October. [address], [place], [id number], [place]. tel:[phone] [facility], [address] [place] [address], [address], [place] tel:[phone] [facility] No Information 3 Dallas Rhodes. [address] [place] [address], [id number], [place]. tel:[phone] [facility], [address] [place] [address], [address], [place] tel:[phone] [facility] thyroid problems (chief complaint)muscul oskeletal pain (chief complaint) BruitMyalgia and myositis, unspecified 3 October. [address], [place], [id number], [place]. tel:[phone] [facility], [address] [place] [address], [address], [place] tel:[phone] [facility] Osteoporosis 3 [employer]. . [facility], [address] [place] [address], [address], [place] tel:[phone] [facility] GERD 3 [employer] [employer]. . [facility], [address] [place] [address], [address], [place] tel:[phone] [facility] GERD 3 [employer]. . [facility], [address] [place] [address], [address], [place] tel:[phone] [facility] thyroid problems (chief complaint) HypothyroidismTob acco AbuseOsteoporosis Arthropathy 3 [facility]. [address] [place] [address], [id number], . tel:[phone] [facility], [address] [place] [address], [address], [place] tel:[phone] [facility] Pain in joint involving forearm 3 [employer]. . [facility], [address] [place] [address], [address], [place] tel:[phone] [facility] GERD 3 [employer]. . [facility], [address] [place] [address], [address], [place] tel:[phone] [facility] GERD 3 [employer]. . [facility], [address] [place] [address], [address], [place] tel:[phone] [facility] thyroid problems (chief complaint)GERD (chief complaint) HypothyroidismGER DTobacco Abuse 3 [facility]. [address] [place] [address], [id number], [place]. tel:[phone] [facility], [address] [place] [address], [address], [place] tel:[phone] [facility] GERDFatigue / Malaise 3 [employer]. . [facility], [address] [place] [address], [address], [place] tel:[phone] [facility] Fatigue / Malaise 2 [employer] [employer]. . [facility], [address] [place] [address], [address], [place] tel:[phone] [facility] annual visit (chief complaint) Screening for malignant neoplasms of the cervix 2 Montana Lundberg. [address] [place] [address], [address]. tel:[phone] [facility], [address] [place] [address], [address], [place] [phone] [address] [place] [address] No Information [address] [place] [address], [id number], . tel:[phone] [facility], [address] [place] [address], [address], [place] tel:[phone] [facility] cold symptoms (chief complaint) Upper Respiratory Infection, AcuteAllergic rhinitis, cause unspecifiedHypoth yroidismTobacco AbuseGERDAnnual MANAGER MANAGING Exam 2 [facility]. [address] [place] [address], [id number], . tel:[phone] [facility], [address] [place] [address], [address], [place] tel:[phone] [address] [place] [address] No Information 2 [employer]. . [facility], [address] [place] [address], [address], [place] tel:[phone] [address] [place] [address] No Information 2 [employer]. . [facility], [address] [place] [address], [address], [place] tel:[phone] [facility] thyroid problems (chief complaint)arthal gias (chief complaint) HypothyroidismGER DArthropathyTobac co Abuse [address] [place] [address], [id number], [place]. tel:[phone] [facility], [address] [place] [address], [address], [place] tel:[phone] [address] [place] [address] No Information 2 [employer]. . [facility], [address] [place] [address], [address], [place] tel:[phone] [address] [place] [address] No Information 2 [employer]. . [facility], [address] [place] [address], [address], [place] tel:[phone] [facility] fatigue (chief complaint) Fatigue / MalaiseHypothyroi dismTobacco Abuse [address] [place] [address], [id number], [place]. tel:[phone] [facility], [address] [place] [address], [facility], [place] tel:[phone] [address] [place] [address] No Information 2 [employer]. . [facility], [address] [place] [address], [facility], tel:[phone] [facility] sore throat (chief complaint) Upper Respiratory Infection, AcuteAcute conjunctivitis, unspecified 2 Gloria Drew. [address] [place] [address], [id number], [place]. tel:[phone] [facility], [address] [place] [address], [address], [place] tel:[phone] [address] [place] [address] No Information 1 [employer]. . [facility], [address] [place] [address], [address], tel:[phone] [facility] Ringing sound in ears (chief complaint)arthal gias (chief complaint) Pain in joint involving forearmAllergic rhinitis, cause unspecifiedHypoth yroidismTinnitus, unspecified [address] [place] [address], [id number], [place]. tel:[phone] [facility], [address] [place] [address], [address], tel:[phone] [address] [place] [address] No Information [address]. [address] [place] [address], [id number], [place]. tel:[phone] [facility], [address] [place] [address], [address], [place] tel:[phone] [facility] cough (chief complaint) Upper Respiratory Infection, Acute 1 Gloria Jaramillo. [address] [place] [address], [id number], [place]. tel:[phone] [facility], [address] [place] [address], [address], [place] tel:[phone] [address] [place] [address] right chest pain (chief complaint)pain with deep breathe (chief complaint)ears ringing (chief complaint) CostochondritisTo bacco AbuseHypothyroidi sm October. [address] [place] [address], [id number], [place]. tel:[phone] [facility], [address] [place] [address], [address], [place] tel:[phone] [address] [place] [address] No Information Mar-2 1 [employer]. . [facility], [address] [place] [address], [address], [place] tel:[phone] [address] [place] [address] No Information Mar- 1 Dallas Rhodes. [address] [place] [address], [id number], [place]. tel:[phone] [facility], [address] [place] [address], [address], [place] tel:[phone] [address] [place] [address] No Information Mar-October. [address] [place] [address], [id number], [place]. tel:[phone] [facility], [address] [place] [address], [address], [place] tel:[phone] [address] [place] [address] No Information Mar- [employer]. . [facility], [address] [place] [address], [address], [place] tel:[phone] [facility] No Information [facility] Anitha. [address] [facility], [place], [place], [id number], [place]. tel:[phone] Family History Family Member Type Diagnosis Age [...] party ID Authoriza tion(s) Medicare NGS MB [id number] Medicare NGS MB [id number] Medicare NGS MB [id number] Social History Type Description Quantity Date Captured [...] AXIAL ordered Referral Referred To: Alan Montes [address] [place] [address] Drive [address] [place] [address], [address] [phone] Ordered: Referrals: Orthopedic Surgery. Alan Montes. Evaluate and treat ordered Referral Ordered: X-RAY EXAM CHEST 2 VIEWS ordered Referral Referred To: Rosemary Nagel [address] [facility] [place], [phone] Ordered: Referrals: Cardiology. Rosemary Nagel. Evaluate and treat Appointment date/timeframe: 03/09/2018 ordered Referral Referred To: Theron Lagos [address] [place], [phone] Ordered: Referrals: Neurology. Theron Lagos. Evaluate and treat Appointment date/timeframe: 04/20/2018 ordered Referral Ordered: BREAST TOMOSYNTHESIS BI, ADD ON ordered Referral Ordered: MG Screening Mammo, CAD (When Performed)bilateral ordered Referral Referred To: Sadi Edwards [address] [place] [address], [address] [phone] Ordered: Referrals: Surgery. Sadi Edwards. Location: [facility]. Evaluate and treat Appointment date/timeframe: 01/19/2018 ordered Referral Ordered: CR ANKLE 3 VIEWS Left ordered Referral Ordered: CR FOOT 3 VIEWS Bilateral ordered Referral Ordered: CR Bilateral Hips Bilateral ordered Referral Ordered: CR T-SPINE 2 VIEWS ordered Referral Ordered: CR HUMERUS Right ordered Referral Referred To: Dario Valencia [address] [place], [place] [phone] Ordered: Referrals: Cardiology. Dario Valencia. Evaluate and treat Appointment date/timeframe: 11/03/2016 ordered Referral Ordered: CR PA & LAT CHEST ordered Referral Ordered: Referrals: Diagnostic Radiology. Evaluate and treat Appointment date/timeframe: 05/22/2015 ordered Referral Ordered: CR ANKLE 3 VIEWS Right ordered Referral Referred To: Tamika Vazquez INTERIOR DESIGN CONSULTANT [address] [place], [phone] Ordered: Referrals: Invoice Classification Clerk. Tamika Vazquez INTERIOR DESIGN CONSULTANT. Location: [facility]. Evaluate and treat Appointment date/timeframe: 02/27/2015 ordered Referral Ordered: CR KNEE 3 VIEWS Right ordered Referral Ordered: CR KNEE 3 VIEWS Right weight bearing ordered Referral Referred To: Bryan Felix [address] [place] [address] [address] [place], [phone] Ordered: Referrals: Neurosurgery. Bryan Felix. Evaluate and treat Appointment date/timeframe: 06/15/2014 ordered Referral Referred To: [facility] [address] [place], [phone] Ordered: Referrals: Diagnostic Radiology. [facility]. Diagnostic testing Appointment date/timeframe: 04/21/2014 ordered Referral Referred To: Wood Greenberg [address] [place], [phone] Ordered: Referrals: Podiatry. Wood Greenberg. Evaluate and treat Appointment date/timeframe: 05/19/2014 ordered Referral Ordered: CR FOOT 3 VIEWS Right ordered Referral Referred To: Wale Coe [address] [place], [phone] Ordered: Referrals: Cardiology. Wale Coe. Evaluate and treat Appointment date/timeframe: 03/29/2014 ordered Referral Referred To: Yudith Arnold [address] [facility] [address] [place], [phone] Ordered: Referral: Yudith Arnold. Evaluate and treat. Appointment date/timeframe: 08/26/2013 ordered Referral Ordered: MG Screening mammography digital ordered Referral Ordered: MG COMP SCREEN MAMMOGRAM ADD-ON DIGITAL ordered Referral Ordered: CR HIPS WES AP/LA ordered Referral Ordered: CR FEMUR Left ordered Referral Ordered: CR L-SPINE OBLIQUE 4 VIEWS ordered Referral Referred To: Ghulam Bansal [address] [place] [address] Drive [address] [place], [phone] Ordered: Referral: Ghulam Bansal. Evaluate and treat. Appointment date/timeframe: 12/31/2012 ordered Referral Referred To: Hubert Becker [address] [place], [phone] Ordered: Referral: Hubert Becker. Evaluate and treat. Appointment date/timeframe: 06/28/2012 ordered Referral Referred To: Tamika Vazquez APRN [address] [place], [phone] Ordered: Referral: Tamika Vazquez APRN. Evaluate and treat. Appointment date/timeframe: 06/23/2012 ordered Referral Ordered: Referral: Hand Surgery. Evaluate and treat. ordered History Of Present Illness Encounter Date Complaint History Of Prese nt Illness Hyperlipidemia Risk factors inc lude age over 50, sedentary life style and thyroid disease. The patient is adhering to medication, follow-up, diet and exercise for their hyperlipidemia. Positive comorbidity factors include thyroid disease. Hyperlipidemia management includes improved diet, increased exercise and statins. Associated symptoms include increased fatigue, joint pain and myalgia. hypertension The symptoms beg an gradually. The severity has been described as being moderate. It is currently stable. Risk factors include family history HTN, gout or CAD, high salt intake, inactive lifestyle and smoking. Associated symptoms include fatigue. Musculoskeletal pain Severity le arnold is moderate. The problem is stable. The pain is aching, burning, dull and throbbing. Hand Dominance: right. Additional information: s/p fall on 10/14/18--slipped on gravels/mud--went to ER--xrays negative--went over incline--landed full weight on right knee. Follow Up Hosp Visit Hyperlipidemia Risk factors inc lude age over [...] hematuria, nausea, palpitations, transient weakness and vomiting. hypertension The symptoms beg an [...] Additional information: sees cardoiology again on 07/20/18 chest pain The patient pres ents with a complaint of chest pain. The patient denies dyspnea and fatigue. The chest pain is associated with dyspnea on exertion. The patient denies any hemoptysis. taken nitro Blurry vision The patient is p resent [...] /u on hypothyroid. No cp/sob/n/v/d/f/c. No presyncope/syncope. Hyperlipidemia Risk factors inc lude age over 50. The patient is adhering to medication, follow-up, diet and exercise for their hyperlipidemia. Hyperlipidemia management includes improved diet, increased exercise and statins. Associated symptoms include increased fatigue, joint pain and myalgia. Pertinent negatives include chest pain, claudication, constipation, diaphoresis, diarrhea, dyspnea, heartburn, hematuria, nausea, palpitations, transient weakness and vomiting. hypertension The symptoms beg an gradually. The severity has been described as being moderate. It is currently stable. Risk factors include high salt intake, inactive lifestyle and smoking. Pertinent negatives include chest pain, claudication, confusion, diaphoresis, dyspnea, epistaxis, fatigue, headache, hematuria, irregular heartbeat/palpitations, nausea, tinnitus, transient weakness, tremor, visual disturbances and vomiting. Earache Onset: gradual. Severity level [...] right. Additional information: slipped off curb [facility]--injured right knee and right foot--h/o stress [...] hematuria, nausea, palpitations, transient weakness and'+ vomiting. Musculoskeletal pain Onset: grad ual. Location: right foot. The pain is aggravated by bending, climbing (and descending) stairs, movement, walking and standing. Associated symptoms include decreased mobility, difficulty initiating sleep, joint instability, joint tenderness, limping, nocturnal awakening and nocturnal pain. Additional information: seeing DR Greenberg for stress fx right foot--in walking boot. Sinus symptoms (acute) The sympt oms are [...] tenderness, nocturnal awakening, nocturnal pain and numbness. Musculoskeletal pain Severity le arnold is mild-moderate. It occurs intermittently and is worsening. The pain is aggravated by bending, climbing stairs and movement. Associated symptoms include decreased mobility, difficulty initiating sleep, joint instability, joint tenderness, nocturnal awakening, nocturnal pain, numbness, popping and spasms. GERD The severity of the problem is [...] discharge, vomiting, weight gain and weight loss. Instructions Date Instruction Additional Infor ty check [...] sodium diet. Relate d to Essential hypertension Dietary management e ducation, guidance, and counseling Related to Dietary Surveillance and Counseling Prescribed activity/ exercise education Related to Prescribed Activity/Exercise Counseling Prescribed activity/ exercise education Related to [...] counseling Related to Dietary Surveillance and Counseling Impression/Plan - 1. Pt ed to wear new Rx ftw and to rtc if simon's persist with new Rx2. Pt ed to rtc if symptoms worsen or monitor x 1yr3. Rx ftw. Monitor x 1yr Dietary management e ducation, guidance, and counseling Related to Dietary Surveillance and Counseling Follow up - Return in 1 year Increase activity. Related to Es sential hypertension Follow a low sodium diet. Relate d to Essential hypertension normal ekg. normal n euro. recent dc [...] Related to Gastroesophageal reflux disease without esophagitis Avoid provocative fo ods: citrus, alcohol, coffee, chocolate, mints Related to Gastroesophageal reflux disease without esophagitis Dietary management e ducation, guidance, and counseling Related to Dietary Surveillance and Counseling Prescribed activity/ exercise education Related to Prescribed Activity/Exercise Counseling Prescribed activity/ exercise education Related to [...] counseling Related to Dietary Surveillance and Counseling Adjust diet. Related to Mixed hyperlipidemia Adjust diet. Related to Mixed hyperlipidemia Eat smaller meals, n o eating three hours prior to bedtime Related to Gastro-esophageal reflux disease without esophagitis Elevate head of bed prior to sle ep Related to Gastro-esophageal reflux disease without esophagitis Increase activity. Related to Mi xed hyperlipidemia Avoid provocative fo ods: citrus, alcohol, [...] ons advised and encouraged. Related to Obesity Dietary management e ducation, guidance, and counseling Related to Dietary Surveillance and Counseling Prescribed activity/ exercise education Related to Prescribed activity/exercise education Increase activity. Related to Hy pertension, Unspecified Follow a low sodium diet. Relate d to Hypertension, Unspecified Stop smoking. Related to Hyper tension, Unspecified Prescribed activity/ exercise education Related to [...]
--- OUTSIDE RECORDS SUMMARY | 2023-11-09 05:45 | XMS_ITS ---
Author Organization [facility] Address [address] [place] [address] PRESTON Potts [phone] Care Team Providers Care Angiographer Name Role Phone Shoaib Marin Unavailable [phone] Allergies Allergen (clinical drug ingredient) Drug/Non Drug [...] Encounters Encounter Location Date Provider Diagnosis [facility] [address] [place] [address] PRESTON Potts [phone] 11/09/2023 Shoaib Marin Plan Of Treatment No Information Progress Notes * PARKERVALENTINOSOBIASUELLEN MistryDOB:[birth year] (64 yo F)Acc No.[id number]:11/09/2023 Progress Notes Patient: SUELLEN WESTBROOK Provider: Char Marin M.D. :1960 A ge:62 Y S ex:Female Date:11/09/2023 Address:[address] [place], [place] [phone] Subjective: * Chief Complaints: * 1 . [...] Disc Disease. * Surgical History: [facility] Chest 1964, Cholecystectomy 1980, [...] Electronic signature of Nahomi Marin MD on 03/23/2025 at 09:51 AM EDT Sign off status: Pending * Provider: Char Marin M.D. Date: 0 11/09/2023 Generated for Ivanna ibarra/April/eTransmitting on: 0 03/23/2025 09:51 AM EDT History and Physical Notes * HPI (History of Present Illness) Category Sub-Category Detail Notes Category Not es Endocrinology Hypothyroidism Cardiology Blood Pressure Elevated Pt here for 6 mo f/u on hypertension, states she is doing well and does not have any concerns Hyperlipidemia pt is fasting today
--- OUTSIDE RECORDS SUMMARY | 2025-03-23 09:51 | XMS_ITS | Encounter Summary ---
Author Organization [facility] Address [address] [place] [address] Care Team Providers Care Maxillofacial Prosthodontist Name Role Phone Mandie Meng JEANNETTE Primary Care Provider +[phone]- [phone] Reason for Visit * Reason Onset Date Comments HCN Clinical Concern/Question 02/01/2025 Encounter Details Date Type Department Care Team (Late st Contact Info) Description 02/01/2025 Telephone [facility] Endocrinology [address] [place] [address] Jim Sierra MD [address] [facility] [address] [place] [address] HCN Clinical Concern/Question Social History [...] remain in normal range. Jim Sierra MD Ceramics Machine Operator of Endocrinology, Diabetes and Metabolism [facility] * Telephone Encounter - Marta Bennett [...] a CT scan that she had at [facility], that showed her thyroid was not visible. Best contact number: [phone] (home) Optimal time of day to reach caller: ANYTIME Additional comments/information from caller: None Note: Please do not reply to this message. Follow-up communication and further actions as a result of this message need to be communicated with the patient directly, if the patient is not active onMyChart. If the patient is active on MyChart, they will receive notification of the communication/outcome via Enomalyhart. documented in this encounter Plan of Treatment Upcoming Encounters Date Type Department Care Team (Late st Contact Info) Description 04/28/2025 9:40 AM EDT Office Visit [facility] [address] [place] [address] Jim Sierra MD [address] [place] [address] documented as of this encounter [...] documented as of this encounter Care Teams Maxillofacial Prosthodontist Relationship Specialty Start Date End Date Mandie Meng APRN [address] [place] [address] PCP - General 09/02/24 documented as of this encounter
--- OUTSIDE RECORDS SUMMARY | 2025-03-23 09:51 | XMS_ITS | Encounter Summary ---
Author Organization [facility] Address [address] [place] [address] Care Team Providers Care Radio Journalist Name Role Phone MengMandie hess JEANNETTE Primary Care Provider +1- [phone] Reason for Visit * Reason Onset Date Comments HCN - Patient Message 03/14/2025 Encounter Details Date Type Department Care Team (Late st Contact Info) Description 03/14/2025 Telephone [facility] Endocrinology [address] [place] [address] Jim Sierra MD [address] [facility] [address] [place] [address] HCN - Patient Message Social History Tobacco Use Types Packs/Day Years [...] Telephone Encounter - Marta Bennett RN - 03/14/2025 11:03 AM EDT Contacted [facility] in [place] spoke with Sherrill in Medical Records to request lab results be faxed to our office . Monitor for lab results Marta Bennett, RN * Telephone Encounter - Carolina Summers - 03/14/2025 10:11 AM EDT Clinical Concern/Question Reason for Call: Patient had her lab work done this morning at [facility] in [place] Best contact number: [phone] (home) Optimal time of day to reach caller: ANYTIME Additional comments/information from caller: Note: Please do not reply to this message. Follow-up communication and further actions as a result of this message need to be communicated with the patient directly, if the patient is not active onMyChart. If the patient is active on MyChart, they will receive notification of the communication/outcome via BitGym. documented in this encounter Plan of Treatment Upcoming Encounters Date Type Department Care Team (Late st Contact Info) Description 04/28/2025 9:40 AM EDT [facility] [address] [place] [address] Jim Sierra MD [address] [facility] [address] [place] [address] documented as of this encounter [...] documented as of this encounter Care Teams Radio Journalist Relationship Specialty Start Date End Date Mandie Meng APRN [address] [place] [address] PCP - General 09/02/24 documented as of this encounter
--- OUTSIDE RECORDS SUMMARY | 2025-03-23 09:51 | XMS_ITS | Encounter Summary ---
Author Organization Healthcare Address [address] [place] [address] Care Team Providers Care Analytical Tech Name Role Phone Mandie Meng JEANNETTE Primary Care Provider +1- [phone] Encounter Details Date Type Department Care Team (Late st Contact Info) Description 03/14/2025 Results Follow-Up [facility] [address] [place] [address] Jim Sierra MD [address] [place] [address] Social History Tobacco Use Types [...] Telephone Encounter - Marta Bennett RN - 03/15/2025 3:00 PM EDT Lab orders mailed to address on file. Marta Bennett RN documented in this encounter Plan of Treatment Upcoming Encounters Date Type Department Care Team (Late st Contact Info) Description 04/28/2025 9:40 AM EDT Office Visit [facility] [address] [place] [address] Jim Sierra MD [address] [place] [address] documented as of this encounter Visit Diagnoses Not on filedocumented in this encounter Additional Health Concerns Assessment Noted Time PHQ-9 Depression Total Score: 8 01/21/20 10:50 AM EDT A fall risk assessment has been complete d for the patient 01/20/2025 10:50 AM EDT A Body Mass Index follow-up plan has been documented for the patient 01/20/2025 11:51 AM EDT documented as of this encounter Care Teams Analytical Tech Relationship Specialty Start Date End Date Mandie Meng APRN [address] [place] [address] PCP - General 09/02/24 documented as of this encounter
--- OUTSIDE RECORDS SUMMARY | 2025-03-23 09:51 | XMS_ITS ---
Author Organization [facility] Address [address] [id number] Care Team Providers Care Bench Inspector Name Role Phone Mandie Meng APRN Primary Care Provider + [phone] Hyperlipidemia Status:Enrolled (Active) Start date:02/19/2024 Enrollment date:02/19/2024 Enrollment reason:New start at Current support & services provided:Clinical Assessment, Refill Coordination , Benefits Investigation, [facility] Dispensing Linked medications:Inclisiran Sodium (Active) Linked problems:Dyslipidemia (Active) Case Team Name Relationship Phone Airam Boogie PharmD(Responsible Staff) Pharmacis t [phone] Continued Care and Services Coordination
--- OUTSIDE RECORDS SUMMARY | 2025-03-23 09:51 | XMS_ITS | Clinical Summary ---
[facility] Address [address] [place] [address] Care Team Providers Care Labeling Strategist Name Role Phone Mandie Meng APRN Primary Care Provider + [phone] Allergies Active Allergy Reactions Criticality Noted Date [...] Mixed hyperlipidemia 02/11/2017 Vitamin D deficiency 02/11/2017 Family History Medical History Relation Name Comments [...] Description 04/26/2025 1:30 PM EDT Office Visit [facility] CARDI[facility] [address] [place] [address] Cabrera Phillips PA [address] [place] [address] 05/12/2025 12:00 PM EST Appointment [facility] C[facility] [address] [address] 05/26/2025 9:30 AM EST Office Visit [facility] HEMATOLOGY & ONCOLOGY [address] [phone] Montana Goldberg MD [address] [facility] [address] [place] [address] Health Maintenance Due Date Last Done Comments [...] ve Non-Reacti ve 07/14/2024 11:58 PM EST [facility] Hep A IgM Non-Reacti ve Non-Reacti ve 07/14/2024 11:58 PM EST [facility] Hep B C IgM Non-Reacti ve Non-Reacti ve 07/14/2024 11:58 PM EST [facility] Hepatitis C Ab Non-Reacti ve Non-Reacti ve 07/14/2024 11:58 PM EST [facility] Blood Venipuncture / Unknown 07/14/2024 2:46 PM EST 07/14/2024 2:47 PM EST [facility] - 07/14/2024 11:58 PM EST Results may be falsely decreased if patient taking Biotin. Wilner Fish LAB BLOOD ORDERABLES F inal Result [facility]
[address] [place] [address], * (ABNORMAL) Lipid Panel (07/14/2024 2:46 PM EST) [facility] Total Cholesterol 125 0 - 200 mg/dL 07/14/2024 11:54 PM EST [facility] Triglycerides 173(H) 0 - 150 mg/dL 07/14/2024 11:54 PM EST [facility] HDL Cholesterol 42 40 - 60 mg/dL 07/14/2024 11:54 PM EST [facility] LDL Cholesterol 54 0 - 100 mg/dL 07/14/2024 11:54 PM EST [facility] VLDL Cholesterol 29 5 - 40 mg/dL 07/14/2024 11:54 PM EST [facility] LDL/HDL Ratio 1.15 07/14/2024 11:54 PM EST [facility] Blood Venipuncture / Unknown 07/14/2024 2:46 PM EST 07/14/2024 2:47 PM EST Narrative [facility] - 07/14/2024 11:54 PM EST [...] RUEDA LAB BLOOD ORDERABLES Final R esult [facility]
[address] [place] [address], from Last 3 Months or Most Recently Relevant to Health Maintenance Insurance [facility] MEDICARE ADVANTAGE HMO Care Teams Labeling Strategist Relationship Specialty Start Date End Date Mandie Meng APRN [address] [place] [address] [address] PCP - General Internal Medicine 09/16/23
--- OUTSIDE RECORDS SUMMARY | 2025-03-23 09:51 | XMS_ITS | Encounter Summary ---
Author Organization Healthcare Address [address] [place] [address] Care Team Providers Care Bag Worker Name Role Phone Mandie Meng JEANNETTE Primary Care Provider +1- [phone] Encounter Details Date Type Department Care Team (Late st Contact Info) Description 01/11/2025 Results Follow-Up [facility] [address], [address] [place] [address] [place] [address] [place] [address] [address] [place] [address] Social History Tobacco Use Types [...] Description 04/28/2025 9:40 AM EDT Office Visit [facility] Endocrinology [address] [place] [address] Jim Sierra MD [address] [facility] [address] [place] [address] documented as of this encounter Visit Diagnoses Not on filedocumented in this encounter Additional Health Concerns Assessment Noted Time A Body Mass Index follow-up plan has been documented for the patient 10/14/2024 9:16 AM EDT documented as of this encounter Care Teams Bag Worker Relationship Specialty Start Date End Date Mandie Meng APRN [address] [id number] PCP - General 09/02/24 documented as of this encounter
--- OUTSIDE RECORDS SUMMARY | 2025-03-23 09:51 | XMS_ITS | Patient Health Record ---
Author Organization [facility] Address [address] [facility] [address] [place] [id number] Care Team Providers Care Forest Landscape Ecology Professor Name Role Phone Shoaib Marin Unavailable [phone] Allergies Allergen (clinical drug ingredient) Drug/Non Drug [...] Vaccine Route Administration Date Status Comme nts COVID 19 Moderna Unknown 09/07/2020 Administered COVID 19 Moderna Unknown 10/19/2020 Administered COVID 19 Moderna Unknown 07/03/2021 Administered COVID 19 Moderna Unknown 12/19/2021 Administered Hepatitis B (20 and more) Unknown 06/05/2004 Administer ed Tetanus Tdap-Adacel (over 7yrs) Unknown 04/22/2018 Admi nistered Social History Tobacco Use: Social History Observation Description Date Details (start date - stop date) Current Smoker NA - NA CURRENT TOBACCO USE: Question Answer Notes Are you a: current smoker 10 Cigarettes [place] Problems Problem Type SNOMED Code ICD Code Onset Dates Problem Status W/U Status Risk Notes Problem Acquired hypothyroidism (338559454) Acquired hypothyroidism (E03.9) Active confirmed Problem COPD - Chronic obstructive pulmonary disease (95675295) Chronic obstructive pulmonary disease, unspecified COPD type (J44.9) Active confirmed Problem Atherosclerotic heart disease of menominee coronary artery without angina pectoris (053108608210427) Coronary artery disease involving menominee coronary artery of menominee heart without angina pectoris (I25.10) Active confirmed Problem Hyperlipidaemia (81610209) Hyperlipidemia, unspecified hyperlipidemia type (E78.5) Active confirmed Problem Abnormal liver function (90705068) Abnormal liver function (K76.89) Active confirmed Problem Allergic rhinitis (00365891) Non-seasonal allergic rhinitis, unspecified trigger (J30.89) Active confirmed Problem Tobacco user (695498344) Nicotine dependence, uncomplicated, unspecified nicotine product type (F17.200) Active confirmed Problem Gastroesophageal reflux disease (569412128) Gastroesophageal reflux disease, unspecified whether esophagitis present (K21.9) Active confirmed Problem Primary hypertension (56934974) Primary hypertension (I10) Active confirmed Plan Of [...]
--- OUTSIDE RECORDS SUMMARY | 2025-03-23 09:51 | XMS_ITS | Clinical Summary ---
Author Organization [facility] Address [address] [place] [address] Care Team Providers Care Manager Intel Name Role Phone Taqueria Mandieluisa Evans APRN Primary Care Provider +1- [phone] Allergies Active Allergy Reactions Criticality Noted Date [...] (500 mg) by mouth twice a day. Active spironolactone (Aldactone) 25 MG tablet Take [...] daily with breakfast. Active levothyroxine (Synthroid, Levoxyl) 100 MCG tabletIndicati ons:Hypothyroi dism due to Roger thyroiditis Take 1 tablet by mouth daily. 30 tablet 2 Active levothyroxine (Synthroid, Levoxyl) 125 MCG tabletIndicati ons:Hypothyroi dism due to Roger thyroiditis Take 1 tablet by mouth daily. 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) 03/14/2025 Orders Only [facility] Endocrinology [address] [place] [address] Jim Sierra MD 03/14/2025 Telephone [facility] Endocrinology [address] [place] [address] Jim Sierra MD HCN - Patient Message 02/01/2025 Telephone [facility] Endocrinology [address] [place] [address] Jim Sierra MD HCN Clinical Concern/Question 01/20/2025 10:40 AM EDT Office Visit [facility] Endocrinology [address] [place] [address] Jim Sierra MD 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) 01/20/2025 Travel 01/11/2025 Results Follow-Up [facility] [address] [place] [address] Jim Sierra MD 01/11/2025 Travel from Last [...] 04/28/2025 9:40 AM EDT [facility] [address] [place] [address] Jim Sierra MD [address] [place] [address] Health Maintenance Due Date Last [...] - Risk 60-74 years 1-dose series) 2019 [id number] Vaccine ( - season) 2025 12/19/2021, 07/03/2021, 10/19/2020, Additional history [...] Procedure Name Priority Date/Time Associated Diagnosis Comments FREE T4, PLASMA Routine 03/14/2025 12:42 PM EDT TSH Routine 01/11/2025 10:28 AM EDT 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 Blood Venous blood specimen / Unknown us Jim Sierra MD LAB BLOOD ORDERABLES Final R esult * (ABNORMAL) TSH (01/11/2025 10:28 AM EDT) Thyroid Stimulating Hormone, Plasma 0.03(L) 0.40 - 4.20 uIU/mL 01/11/2025 1:23 PM EDT [facility] Blood Venous blood specimen / Unknown Venipuncture / Unknown 01/11/2025 10:28 AM EDT 01/11/2025 10:28 AM EDT us Jim Sierra MD LAB BLOOD ORDERABLES Final R esult [facility] [address] [place] [address] * [place] Hepatitis C Antibody (02/23/2020 7:07 PM EDT) [place] Hepatitis C Ab NEGATIVE Reference Range: Negative [facility] 02/23/2020 7:07 PM EDT 02/23/2020 7:23 PM EDT us Yumiko Kimbrough MD LAB BLOOD ORDERABLES Final Re sult [facility] from Last 3 Months or Most Recently Relevant to Health Maintenance Insurance Care Teams Manager Intel Relationship Specialty Start Date End Date Mandie Meng APRN [address] [place] [address] PCP - General 09/02/24
--- OUTSIDE RECORDS SUMMARY | 2025-03-23 09:51 | XMS_ITS | Encounter Summary ---
Author Organization Healthcare Address [address] [place] [address] Care Team Providers Care Chemical Plant Operator Name Role Phone Mandie Meng APRN Primary Care Provider +1- [phone] Encounter Details Date Type Department Care Team (Late Contact Info) Description 03/14/2025 Orders Only [facility] Endocrinology [address] [place] [address] Jim Sierra MD [address] [address] Social History Tobacco Use Types Packs/Day [...] Encounters Date Type Department Care Team (Late Contact Info) Description 04/28/2025 9:40 AM EDT Office Visit [facility] Endocrinology [address] [place] [address] Jim Sierra MD [address] [facility] [address] [place] [address] documented as of this encounter Procedures Procedure Name Priority Date/Time Associated Diagnosis Comments FREE T4, PLASMA Routine 03/14/2025 12:42 PM EDT documented in this encounter Results * Free T4, Plasma (03/14/2025 12:42 PM EDT) Blood Venous blood specimen / Unknown Jim Sierra MD LAB BLOOD ORDERABLES Final R esult documented in this encounter Visit Diagnoses Not on filedocumented in this encounter Additional Health Concerns Assessment Noted Time PHQ-9 Depression Total Score: 8 01/21/20 10:50 AM EDT A fall risk assessment has been complete d for the patient 01/20/2025 10:50 AM EDT A Body Mass Index follow-up plan has been documented for the patient 01/20/2025 11:51 AM EDT documented as of this encounter Care Teams Chemical Plant Operator Relationship Specialty Start Date End Date Mandie Meng APRN [address] [place] [address] PCP - General 09/02/24 documented as of this encounter
--- OUTSIDE RECORDS SUMMARY | 2025-03-23 09:51 | XMS_ITS | Encounter Summary ---
Author Organization Healthcare Address [address] 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) [...] Visit [facility] [address] [place] [address] Jim Sierra MD [address] [address] Scheduled Orders Name Type Priority Associated Diagnoses Orde r Schedule Thyroid Stimulating Hormone, Plasma Lab Routine 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
[2025-03-23 10:36] LABS: Alanine Aminotransferase 30 U/L (12-78); Albumin Level 4.0 g/dl (3.5-5.0); Albumin/Globulin Ratio 1.5 (1.1-1.8); Alkaline Phosphatase 53 U/L (38-126); Anion Gap 10.4 mEq/L (5-15); Aspartate Amino Transferase 37 U/L (14-36); Bilirubin,Total 0.6 mg/dl (0.2-1.3); Blood Urea Nitrogen 13 mg/dl (7-17); Calcium 9.3 mg/dl (8.4-10.2); Carbon Dioxide 28 mmol/L (22.0-30.0); Chloride 105 mmol/L (98-107); Creatinine,Serum 0.90 mg/dl (0.52-1.04); Estimated Glomerular Filt Rate 63 ml/min (>60); GFR (African American) 76 ML/MIN (>60); Globulin 2.6 g/dL (1.3-3.2); Glucose 88 mg/dl (74-100); Potassium 4.4 mmoL/L (3.5-5.1); Sodium 139 mmol/L (136-145); Total Protein,Serum 6.6 g/dl (6.3-8.2)
== END 2025-03-23 23:59 | disposition home or self-care (01) ==
LOC: LAB 09:47
PROVIDERS: PCP Nurse Practitioner Family; Visit Provider Nurse Practitioner Family
DX: K75.81 Nonalcoholic steatohepatitis (NASH) (principal)
CPT/HCPCS: 36415; 80053

== ENCOUNTER 2025-03-23 10:05 | Outpatient (CLI) | payer MEDICARE, SELFPAY ==
--- OUTSIDE RECORDS SUMMARY | 2020-10-08 06:40 | XMS_ITS | Continuity of Care Document ---
Author Organization [facility] [employer] Address [address] [place] [address] Phone Care Team Providers Care Rehabilitation Program Manager Name Role Phone Breeding , Geraldo Unavailable Unavailable Allergies, Adverse Reactions, Alerts Substance Reaction Status Criticality Penicillins hives Active No Information Medications Medication Instructions Dosage Effective Dates (start - stop) Status Comments LEVOCETIRIZINE DHCL 5MG TAB TAKE 1 TABLET BY MOUTH IN THE EVENING - Active RANITIDINE 300 MG TABLET one bid - Active PROTONIX 40 MG TABLET,DELAYED RELEASE take 1 tablet by oral route every day - Active Lipitor 20 mg tablet TAKE ONE TABLET BY MOUTH EVERY EVENING FOR CHOLESTEROL ARH DISCHARGE - Active Singulair 10 mg tablet TAKE 1 TABLET BY MOUTH EVERY DAY IN THE EVENING - Active levothyroxine 125 mcg tablet take 1 tablet by oral route every day 125 MCG - Active Mobic 15 mg tablet take 1 tablet by oral route every day as needed - Active Toprol XL 25 mg tablet,extended release take 1.5 Tablet by oral route every day 37.5 MG - Active metoprolol succinate ER 25 mg tablet,extended release 24 hr take 1 tablet by oral route every day for heart rate control 25 MG - Active magnesium oxide 400 mg tablet take 1 tablet by oral route 2 times every day 400 MG - Active meclizine 25 mg tablet take 1 tablet by oral route 3 times every day as needed 25 MG - Active Vitamin D2 50,000 unit capsule take 1 capsule by oral route every week - Active Robaxin 500 mg tablet take 1 tablet by oral route 2 times every day as needed 500 MG - Active tizanidine 4 mg tablet take 1 tablet by oral route every bedtime as needed not to exceed 3 doses in 24 hours 4 MG - Active Voltaren 1 % topical gel apply (2G) by topical route 4 times every day to the affected area(s) as needed - Active Symbicort 160 mcg-4.5 mcg/actuation HFA aerosol inhaler inhale 2 puff by inhalation route 2 times every day in the morning and evening 2.00 puff - Active Boniva 150 mg tablet one monthly - Act hunter Os-Benjy 500 + D 500 mg (1,250 mg)-600 unit tablet twice daily - Active B-12 Plus 5,000 mcg-100 mcg Sublingual Tab - Active Advance Directives Directive Yes / No Effective Date File Name No Information Encounters Encounter Description Practice Location Reason(s) For Visit Diagnoses Date Provider [facility], [address] [place] [address], [facility], tel:[phone] [address] [place] [address] No Information . [address] [place] [address], [id number], [place]. tel:[phone], [address], tel:[phone] [address] [place] [address] No Information October. [address], [place], [id number], [place]. tel:[phone], [address], [place] tel:[phone] [address] [place] [address] No Information 9 [facility]. [address], [place], [id number], [place]. tel:[phone], [address], [place] tel:[phone] [facility] Visit for screening mammogramAge-rela hanna osteoporosis without current pathological fracture [facility]. [address] [place] [address], [id number], . tel:[phone] [facility], [address] [place] [address], [facility], tel:[phone] [address] [place] [address] Musculoskeletal pain (chief complaint)hypert ension (chief complaint)Hyperl ipidemia (chief complaint) Acute pain of right kneeJoint effusionStatus post fallMyalgiaEssent ial hypertensionPure hypercholesterole miaVitamin D deficiencyVitamin B12 deficiency anemia due to selective vitamin B12 malabsorption with proteinuria Oct-3 [facility] [place] [address], [id number], . tel:[phone] [facility], [address] [place] [address], [facility], tel:[phone] [address] [place] [address] Follow Up Hosp Visit (chief complaint)hypert ension (chief complaint)Hyperl ipidemia (chief complaint) Unstable anginaOverweightD ietary counseling and surveillancePresc ribed Activity/Exercise CounselingArthrop athy, unspecifiedChroni c obstructive pulmonary disease, unspecifiedEssent ial hypertensionHyper lipidemia, unspecifiedHypoth yroidism, unspecified typeOther fatigueGastroesop hageal reflux disease without esophagitisOther hyperlipidemia Jun-0 [facility]. [address] [place] [address], [id number], [place]. tel:[phone] [facility], [address] [place] [address], [address], [place] tel:[phone] [facility] No Information Jun-0 [facility]. [address] [place] [address], [id number], . tel:[phone] [facility], [address] [place] [address], [address], [place] tel:[phone] [facility] No Information 8 Corinna Van. [address], [place], [id number], [place]. tel:[phone] [facility], [address] [place] [address], [address], [place] tel:[phone] [facility] chest pain (chief complaint)taken nitro (chief complaint) OverweightDietary counseling and surveillancePresc ribed Activity/Exercise CounselingChest pain, unspecified type 8 Corinna Van. [address], [place], [id number], [place]. tel:[phone] [facility], [address] [place] [address], [address], [place] tel:[phone] [facility] Headaches (chief complaint)Blurry vision (chief complaint) Body mass index (BMI) 28.0-28.9, adultDietary counseling and surveillanceMyopi a of both eyes with astigmatism and presbyopiaUnspeci fied astigmatism, bilateralPresbyop iaFrequent headachesNuclear sclerosis of both eyes 8 Amari Bush. [address] [place] [address], [id number], [place]. tel:[phone] [facility], [address] [place] [address], [address], [place] tel:[phone] [address] [place] [address] Medical Clinic hypertension (chief complaint)Hyperl ipidemia (chief complaint) OverweightDietary counseling and surveillancePresc ribed Activity/Exercise CounselingEssenti al hypertensionCardi ac murmur, unspecifiedHyperl ipidemia, unspecifiedHypoka lemiaHypomagnesem iaHypothyroidism, unspecified typeVitamin D deficiencyVitamin B12 deficiency anemia due to selective vitamin B12 malabsorption with proteinuria 8 VazquezMara Anitha. [address] [place] [address], [id number], [place]. tel:[phone] [facility], [address] [place] [address], [address], [place] tel:[phone] [facility] Follow Up of hypertension (chief complaint) OverweightDietary counseling and surveillancePresc ribed Activity/Exercise CounselingTachyca issacia Juaquin Gayle. [address] [place] [address], [id number], [place]. tel:[phone] [facility], [address] [place] [address], [address], [place] tel:[phone] [address] [place] [address] hypertension (chief complaint)Cold symptoms (chief complaint) OverweightDietary counseling and surveillancePresc ribed Activity/Exercise CounselingEssenti al hypertensionPost- nasal dripVertigoCoughN ear syncopeCervicalgi a [facility] October. [address] [place] [address], [id number], [place]. tel:[phone] [facility], [address] [place] [address], [facility], [place] tel:[phone] [address] [place] [address] Medicare preventive (chief complaint) OverweightDietary counseling and surveillancePresc ribed Activity/Exercise CounselingMedicar e annual wellness visit, subsequent [facility] October. [address], [place], [id number], [place]. tel:[phone] [facility], [address] [place] [address], [address], [place] tel:[phone] [address] [place] [address] GERD (chief complaint) Body mass index (BMI) 28.0-28.9, adultDietary counseling and surveillancePresc ribed Activity/Exercise CounselingSyncope and collapseGastroeso phageal reflux disease without esophagitisIdiopa thic hypotensionOther specified hypotensionDiarrh ea, unspecified typeNauseaDehydra tionMyalgiaHypoka lemiaHypomagnesem ia [facility] October. [address], [place], [id number], [place]. tel:[phone] [facility], [address] [place] [address], [address], [place] tel:[phone] [address] [place] [address] [facility] Visit for screening mammogram [facility] October. [address], [place], [id number], . tel:[phone] [facility], [address] [place] [address], [address], tel:[phone] [facility] Musculoskeletal pain (chief complaint)Thyroi d problems (chief complaint)hypert ension (chief complaint) OverweightDietary counseling and surveillancePresc ribed Activity/Exercise CounselingEssenti al (primary) hypertensionOther intervertebral disc displacement, lumbosacral regionHypothyroid ism, unspecified typeVitamin D deficiencyVitamin B12 deficiency anemia due to selective vitamin B12 malabsorption with proteinuriaArthro rachna, unspecifiedDyspha jenni, unspecified type [facility] October. [address], [place], [id number], [place]. tel:[phone] [facility], [address] [place] [address], [facility], tel:[phone] [address] [place] [address] Dizziness (chief complaint) OverweightDietary counseling and surveillanceOther specified counselingBenign paroxysmal positional vertigo due to bilateral vestibular disorderMeniere's disease of both ears 7 Gloria [place]. [address] [place] [address], [id number], [place]. tel:[phone] [facility], [address] [place] [address], [address], [place] tel:[phone] [address] [place] [address] Thyroid problems (FP) (chief complaint)Muscul oskeletal pain (chief complaint) OverweightDietary counseling and surveillanceOther specified counselingEssenti al (primary) hypertensionHypot hyroidism, unspecified typeOther intervertebral disc displacement, lumbosacral regionMononeuropa thy, unspecifiedHyperl ipidemia, unspecifiedVitami n D deficiencyVitamin B12 deficiency anemia due to selective vitamin B12 malabsorption with proteinuriaLeft ankle pain, unspecified chronicityFoot pain, bilateralPain in left foot [facility] October. [address], [place], [id number], [place]. tel:[phone] [facility], [address] [place] [address], [address], [place] tel:[phone] [facility] Follow Up of hospital (chief complaint)hypert ension (chief complaint)Hyperl ipidemia (chief complaint) OverweightDietary counseling and surveillanceOther specified counselingChest pain in adultChronic obstructive pulmonary disease, unspecifiedEssent ial (primary) hypertensionHyper lipidemia, unspecified LynnCarmenoctober. [address], [place], [id number], [place]. tel:[phone] [facility], [address] [place] [address], [address], [place] tel:[phone] [facility] No Information VazquezCarmenoctober. [address], [place], [id number], [place]. tel:[phone] [facility], [address] [place] [address], [address], [place] tel:[phone] [facility] chest pain (chief complaint) OverweightDietary counseling and surveillanceOther specified counselingChest pain in adult VazquezCarmenoctober. [address], [place], [id number], [place]. tel:[phone] [facility], [address] [place] [address], [address], [place] tel:[phone] [facility] No Information VazquezCarmenoctober. [address], [place], [id number], [place]. tel:[phone] [facility], [address] [place] [address], [address], [place] tel:[phone] [address] [place] [address] [facility] hypothyroidism (chief complaint)hypert ension (chief complaint)GERD (chief complaint) OverweightDietary counseling and surveillanceOther specified counselingHypothy roidism, unspecified typeGastro-esopha geal reflux disease without esophagitisOther intermediate (current) drug therapyEssential (primary) hypertensionHisto ry of rhabdomyolysisMix ed hyperlipidemiaVit sanford D deficiency [facility]. [address] [place] [address], [id number], . tel:[phone] [facility], [address] [place] [address], [address], [place] tel:[phone] [facility] Thyroid problems (FP) (chief complaint) OverweightDietary counseling and surveillanceOther specified counselingHypothy roidism, unspecified hypothyroidism type [facility]. [address], [place], [id number], [place]. tel:[phone] [facility], [address] [place] [address], [address], [place] tel:[phone] [facility] Partial loss of teeth, unspecified cause, unspecified class Forney Kellee. [address] [place] [address], [id number], [place]. tel:[phone] [facility], [address] [place] [address], [address], [place] tel:[phone] [facility] Musculoskeletal pain (chief complaint) OverweightDietary counseling and surveillanceOther specified counselingAcute pain of right shoulderAcute pain of right kneeOther intervertebral disc displacement, lumbosacral region October. [address] [place] [address], [id number], [place]. tel:[phone] [facility], [address] [place] [address], [address], [place] tel:[phone] [facility] Low back pain with sciatica, sciatica laterality unspecified, unspecified back pain laterality, unspecified chronicity [facility]. [address], [place], [id number], [place]. tel:[phone] [facility], [address] [place] [address], [address], [place] tel:[phone] [address] [place] [address] Medicare preventive (chief complaint) OverweightDietary counseling and surveillanceOther specified counselingEncount er for general adult medical examination without abnormal findingsArthropat hy, unspecifiedHip pain, bilateralPain in left hipRight knee pain, unspecified chronicityPain of right upper extremityMid back pain [address]. [address], [id number], [place]. tel:[phone] [facility], [address] [place] [address], [address], [place] tel:[phone] [address] [place] [address] Thyroid problems (FP) (chief complaint)back pain (chief complaint)hypert ension (chief complaint) OverweightDietary counseling and surveillanceOther specified counselingEssenti al (primary) hypertensionHyper lipidemia, unspecifiedOther vitamin B12 deficiency anemiasVitamin D deficiency, unspecifiedArthro rachna, unspecifiedOther intervertebral disc displacement, lumbar regionOther myositis, unspecified siteFall, initial encounter [facility]. [address], [place], [id number], [place]. tel:[phone] [facility], [address] [place] [address], [address], [place] tel:[phone] [address] [place] [address] Visit for screening mammogram [facility]. [address] [place] [address], [id number], [place]. tel:[phone] [facility], [address] [place] [address], [address], [place] tel:[phone] [address] [place] [address] [facility] No Information Beto Goodson. [address] [place] [address], [id number], [place]. tel:[phone] [facility], [address] [place] [address], [address], [place] tel:[phone] [address] [place] [address] [facility] Hypokalemia [facility]. [address], [place], [id number], [place]. tel:[phone] [facility], [address] [place] [address], [address], [place] tel:[phone] [address] [place] [address] Dental Clinic No Information 7 Beto Goodson. [address] [place] [address], [id number], [place]. tel:[phone] [facility], [address] [place] [address], [address], [place] tel:[phone] [address] [place] [address] [facility] vitamin D (chief complaint)hypert ension (chief complaint)Muscul oskeletal pain (chief complaint) OverweightDietary counseling and surveillanceOther specified counselingCervica lgiaGastro-esopha geal reflux disease without esophagitisOther intervertebral disc displacement, lumbar regionMononeuropa thy, unspecifiedMuscle spasm of backVitamin D deficiency, unspecifiedNicoti ne dependence, cigarettes, uncomplicatedEnco unter for general adult medical examination with abnormal findingsEssential (primary) hypertensionHypot hyroidism, unspecified hypothyroidism typeHyperlipidemi a, unspecifiedCoughL ow blood potassium 7 Vazquez-Carmen October. [address] [place] [address], [id number], [place]. tel:[phone] [facility], [address] [place] [address], [address], tel:[phone] [facility] Dental caries, unspecified 7 Beto Hernandezecca. [address] [place] [address], [id number], [place]. tel:[phone] [facility], [address] [place] [address], [address], [place] tel:[phone] [address] [place] [address] Dental Clinic No Information 6 Beto Hernandezecca. [address] [place] [address], [id number], . tel:[phone] [facility], [address] [place] [address], [address], [place] tel:[phone] [address] [place] [address] Dental Clinic No Information 6 Forney Kellee. [address] [place] [address], [id number], [place]. tel:[phone] [facility], [address] [place] [address], [address], [place] tel:[phone] [facility] Necrosis of pulp 6 Forney Kellee. [address] [place] [address], [id number], [place]. tel:[phone] [facility], [address] [place] [address], [address], [place] tel:[phone] [facility] Thyroid (chief complaint)hypert ension (chief complaint)Hyperl ipidemia (chief complaint) OverweightDietary counseling and surveillanceOther specified counselingHypothy roidism, unspecified hypothyroidism typeEssential (primary) hypertensionVitam in D deficiency, unspecifiedVitami n B12 deficiency anemia due to selective vitamin B12 [address]absorption [address] proteinuriaEncoun ter for general adult medical examination without abnormal findings 6 [facility] October. [address] [place] [address], [id number], [place]. tel:[phone] [facility], [address] [place] [address], [address], [place] tel:[phone] [address] [place] [address] [facility] No Information [address] [facility]. [address] [place] [address], [id number], [place]. tel:[phone] [facility], [address] [place] [address], [address], [place] tel:[phone] [facility] Dental caries, unspecified 6 [facility]. [address] [place] [address], [id number], [place]. tel:[phone] [facility], [address] [place] [address], [address], [place] tel:[phone] [facility] back pain (chief complaint)Earach e (chief complaint) OverweightDietary counseling and surveillanceOther specified counselingOther intervertebral disc displacement, lumbosacral regionCervicalgia MyalgiaMononeurop athy, unspecified VazquezCarmenoctober. [address] [place] [address], [id number], . tel:[phone] [facility], [address] [place] [address], [address], tel:[phone] [facility] Musculoskeletal pain (chief complaint)hypert ension (chief complaint) Body mass index (BMI) 29.0-29.9, adultDietary counseling and surveillanceOther specified counselingCervica lgiaMyalgiaOther intervertebral disc displacement, lumbosacral region LynnCarmenoctober. [address], [place], [id number], [place]. tel:[phone] [facility], [address] [place] [address], [address], [place] tel:[phone] [address] [place] [address] [facility] No Information Forney Kellee. [address] [place] [address], [id number], [place]. tel:[phone] [facility], [address] [place] [address], [address], [place] tel:[phone] [facility] Necrosis of pulp 6 [facility]. [address] [place] [address], [id number], [place]. tel:[phone] [facility], [address] [place] [address], [address], [place] tel:[phone] [facility] Hypothyroidism (chief complaint)hypert ension (chief complaint) Obesity, unspecifiedDietar y counseling and surveillanceOther specified counselingEssenti al (primary) hypertensionHypot hyroidism, unspecified hypothyroidism typeGastro-esopha geal reflux disease without esophagitisOther intervertebral disc displacement, lumbosacral regionOther vitamin B12 deficiency anemiasVitamin D deficiency, unspecified Carmeno[facility]ober. [address] [place] [address], [id number], [place]. tel:[phone] [facility], [address] [place] [address], [address], [place] tel:[phone] [facility] No Information 6 Keyla Susan. [address] [place] [address], [address]. tel:[phone] [facility], [address] [place] [address], [address], [place] tel:[phone] [facility] Encounter for dental exam and cleaning w abnormal findings 6 Beto Kellee. [address] [place] [address], [id number], [place]. tel:[phone] [facility], [address] [place] [address], [facility], [place] tel:[phone] [facility] Visit for screening mammogram VazquezCarmenoctober. [address] [place] [address], [id number], . tel:[phone] [facility], [address] [place] [address], [address], [place] tel:[phone] [facility] Cold symptoms (chief complaint) Obesity, unspecifiedDietar y counseling and surveillanceOther specified counselingAllergi c rhinitis, unspecifiedAcute maxillary sinusitis, recurrence not specified 6 Rukhsana Baker. [address] [place] [address], [facility]. tel:[phone] [facility], [address] [place] [address], [address], [place] tel:[phone] [address] [place] [address] [facility] Thyroid problems (FP) (chief complaint)hypert ension (chief complaint) Obesity, unspecifiedDietar y counseling and surveillanceOther specified counselingEssenti al (primary) hypertensionHypot hyroidism, unspecified hypothyroidism typeOther hyperlipidemiaOth er vitamin B12 deficiency anemiasVitamin D deficiency, unspecifiedChroni c obstructive pulmonary disease, unspecifiedEncoun ter for general adult medical examination without abnormal findings 6 LynnCarmenoctober. [address], [place], [id number], [place]. tel:[phone] [facility], [address] [place] [address], [facility], tel:[phone] [address] [place] [address] Musculoskeletal pain (chief complaint)Back pain (chief complaint)hypert ension (chief complaint) Obesity, unspecifiedDietar y counseling and surveillanceOther specified counselingEssenti al (primary) hypertensionVitam in B12 deficiency anemia due to selective vitamin B12 malabsorption with proteinuriaFoot pain, rightLow back pain with sciatica, sciatica laterality unspecified, unspecified back pain lateralityHypothy roidism, unspecified hypothyroidism type [facility] October. [address] [place] [address], [id number], . tel:[phone] [facility], [address] [place] [address], [facility], tel:[phone] [address] [place] [address] Thyroid problems (FP) (chief complaint)hypert ension (chief complaint)Hyperl ipidemia (chief complaint) ObesityDietary surveillance and counselingExercis e counselingHyperte nsion, UnspecifiedOther and unspecified hyperlipidemiaVit sanford D deficiencyUnspeci fied hypothyroidismOth er vitamin B12 deficiency anemiaRoutine medical exam Mar- [facility] October. [address] [place] [address], [id number], . tel:[phone] [facility], [address] [place] [address], [facility], [place] tel:[phone] [facility] Musculoskeletal pain (chief complaint) ObesityDietary surveillance and counselingExercis e counselingRoutine gynecological examinationKnee pain, acute 5 [facility]. [address] [place] [address], [id number], [place]. tel:[phone] [facility], [address] [place] [address], [facility], [place] tel:[phone] [facility] Thyroid problems (FP) (chief complaint)hypert ension (chief complaint) Hypertension, UnspecifiedOther and unspecified hyperlipidemiaUns pecified hypothyroidismTob acco use disorderRoutine medical examPeripheral neuropathy, UnspecHeart murmurObesityKnee pain [facility] October. [address], [place], [id number], [place]. tel:[phone] [facility], [address] [place] [address], [address], [place] tel:[phone] [address] [place] [address] Medical [facility] Visit for screening mammogramStress fracture of metatarsals [facility] October. [address], [place], [id number], [place]. tel:[phone] [facility], [address] [place] [address], [address], [place] tel:[phone] [address] [place] [address] Thyroid problems (FP) (chief complaint)hypert ension (chief complaint)Hyperl ipidemia (chief complaint)Muscul oskeletal pain (chief complaint) Stress fracture of metatarsalsUnspec ified hypothyroidismCOP DGERDHypertension , UnspecifiedOther and unspecified hyperlipidemiaRou richard medical examOverweight [facility] October. [address], [place], [id number], [place]. tel:[phone] [facility], [address] [place] [address], [address], [place] tel:[phone] [place] [address] MRI Follow Up (chief complaint)Sinus symptoms (acute) (chief complaint)back pain (chief complaint) Lumbar disc herniationSciatic aNeuropathyUpper respiratory infection, acuteAllergic rhinitis [facility] October. [address], [place], [id number], [place]. tel:[phone] [facility], [address] [place] [address], [address], [place] tel:[phone] [place] [address] Lumbago [facility] October. [address], [place], [id number], [place]. 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 . [facility], [address] [place] [address], [address], [place] tel:[phone] [facility] musculoskeletal pain (chief complaint) Hypertension, UnspecifiedGERDUn specified hypothyroidismCOP DMyalgia and myositis, unspecifiedHeart murmurFoot pain 4 [facility] October. [address] [place] [address], [id number], [place]. tel:[phone] [facility], [address] [place] [address], [address], tel:[phone] [facility] Musculoskeletal pain (chief complaint)GERD (chief complaint) LumbagoGERDUnspec ified hypothyroidismTob acco use disorderCOPDOverw eight 4 [facility] October. [address] [place] [address], [id number], [place]. tel:[phone] [facility], [address] [place] [address], [address], [place] tel:[phone] [place] [address] allergic rhinitis (chief complaint)produc tive cough (chief complaint)conges tion (chief complaint)tobacc o use (chief complaint) Allergic rhinitisCoughToba imaging account manager use 4 [facility]. [address] [place] [address], [id number], [place]. tel:[phone] [facility], [address] [place] [address], [address], [place] tel:[phone] [place] [address] cold symptoms (chief complaint)thyroi d problems (chief complaint) Bronchitis, AcuteHypothyroidi smTobacco AbuseGERDFatigue / MalaiseOther and unspecified hyperlipidemiaPer ipheral neuropathy, Unspec [facility]. [address] [place] [address], [id number], [place]. tel:[phone] [facility], [address] [place] [address], [address], [place] tel:[phone] [facility] Visit for screening mammogram [facility]. [address], [place], [id number], [place]. tel:[phone] [facility], [address] [place] [address], [address], [place] tel:[phone] [facility] cold symptoms (chief complaint)numbne ss right hand (chief complaint) Upper Respiratory Infection, AcuteAllergic rhinitis, cause unspecifiedPeriph eral neuropathy, UnspecHypothyroid ismHypertension, Unspecified [facility]. [address] [place] [address], [id number], [place]. tel:[phone] [facility], [address] [place] [address], [address], [place] tel:[phone] [facility] thyroid problems (chief complaint)cold symptoms (chief complaint)arthal gias (chief complaint) Pain in joint involving pelvic region and thighLumbagoArthr opathyMyalgia and myositis, unspecifiedHypoth yroidismTobacco AbuseFatigue / Malaise [facility]. [address] [place] [address], [id number], [place]. tel:[phone] [facility], [address] [place] [address], [address], [place] tel:[phone] [facility] thyroid problems (chief complaint) HypothyroidismTob acco AbuseGERD [facility] October. [address] [place] [address], [id number], [place]. tel:[phone] [facility], [address] [place] [address], [address], [place] tel:[phone] [facility] pain in rt side under rt arm (chief complaint)rt shoulder pain , to back (chief complaint)pain under rt ribs (chief complaint)back pain (chief complaint) Muscle spasm of back 3 Deon Miller. [address] [place] [address], [address]. tel:[phone] [facility], [address] [place] [address], [address], [place] tel:[phone] [facility] Hemorrhage of rectum and anus 3 October. [address], [place], [id number], [place]. tel:[phone] [facility], [address] [place] [address], [address], [place] tel:[phone] [facility] No Information 3 Dallas Rhodes. [address] [place] [address], [id number], [place]. tel:[phone] [facility], [address] [place] [address], [address], [place] tel:[phone] [facility] thyroid problems (chief complaint)muscul oskeletal pain (chief complaint) BruitMyalgia and myositis, unspecified 3 October. [address], [place], [id number], [place]. tel:[phone] [facility], [address] [place] [address], [address], [place] tel:[phone] [facility] Osteoporosis 3 [employer]. . [facility], [address] [place] [address], [address], [place] tel:[phone] [facility] GERD 3 [employer]. . [facility], [address] [place] [address], [address], [place] tel:[phone] [facility] GERD 3 [employer]. . [facility], [address] [place] [address], [address], [place] tel:[phone] [facility] thyroid problems (chief complaint) HypothyroidismTob acco AbuseOsteoporosis Arthropathy 3 [facility]. [address] [place] [address], [id number], . tel:[phone] [facility], [address] [place] [address], [address], [place] tel:[phone] [facility] Pain in joint involving forearm 3 [employer]. . [facility], [address] [place] [address], [address], [place] tel:[phone] [facility] GERD 3 [employer]. . [facility], [address] [place] [address], [address], [place] tel:[phone] [facility] GERD 3 [employer]. . [facility], [address] [place] [address], [address], [place] tel:[phone] [facility] thyroid problems (chief complaint)GERD (chief complaint) HypothyroidismGER DTobacco Abuse 3 [facility]. [address] [place] [address], [id number], [place]. tel:[phone] [facility], [address] [place] [address], [address], [place] tel:[phone] [facility] GERDFatigue / Malaise 3 [employer]. . [facility], [address] [place] [address], [address], [place] tel:[phone] [facility] Fatigue / Malaise 2 [employer]. . [facility], [address] [place] [address], [address], [place] tel:[phone] [facility] annual visit (chief complaint) Screening for malignant neoplasms of the cervix 2 Montana Lundberg. [address] [place] [address], [address]. tel:[phone] [facility], [address] [place] [address], [address], [place] tel:[phone] [place] [address] No Information [address] [place] [address], [id number], . tel:[phone] [facility], [address] [place] [address], [address], [place] tel:[phone] [facility] cold symptoms (chief complaint) Upper Respiratory Infection, AcuteAllergic rhinitis, cause unspecifiedHypoth yroidismTobacco AbuseGERDAnnual PRODUCTION LABORER Exam 2 [facility]. [address] [place] [address], [id number], . tel:[phone] [facility], [address] [place] [address], [address], [place] tel:[phone] [place] [address] No Information 2 [employer]. . [facility], [address] [place] [address], [address], [place] tel:[phone] [place] [address] No Information 2 [employer]. . [facility], [address] [place] [address], [address], [place] tel:[phone] [facility] thyroid problems (chief complaint)arthal gias (chief complaint) HypothyroidismGER DArthropathyTobac co Abuse [address] [place] [address], [id number], [place]. tel:[phone] [facility], [address] [place] [address], [address], [place] tel:[phone] [place] [address] No Information 2 [employer]. . [facility], [address] [place] [address], [address], [place] tel:[phone] [place] [address] No Information 2 [employer]. . [facility], [address] [place] [address], [address], [place] tel:[phone] [facility] fatigue (chief complaint) Fatigue / MalaiseHypothyroi dismTobacco Abuse [address] [place] [address], [id number], [place]. tel:[phone] [facility], [address] [place] [address], [facility], [place] tel:[phone] [address] [place] [address] No Information 2 [employer]. . [facility], [address] [place] [address], [facility], tel:[phone] [facility] sore throat (chief complaint) Upper Respiratory Infection, AcuteAcute conjunctivitis, unspecified 2 Gloria [place]. [address] [place] [address], [id number], [place]. tel:[phone] [facility], [address] [place] [address], [address], [place] tel:[phone] [place] [address] No Information 1 [employer]. . [facility], [address] [place] [address], [address], tel:[phone] [facility] Ringing sound in ears (chief complaint)arthal gias (chief complaint) Pain in joint involving forearmAllergic rhinitis, cause unspecifiedHypoth yroidismTinnitus, unspecified [address] [place] [address], [id number], [place]. tel:[phone] [facility], [address] [place] [address], [address], tel:[phone] [place] [address] No Information [address] [place] [address], [id number], [place]. tel:[phone] [facility], [address] [place] [address], [address], [place] tel:[phone] [facility] cough (chief complaint) Upper Respiratory Infection, Acute 1 Gloria Jaramillo. [address] [place] [address], [id number], [place]. tel:[phone] [facility], [address] [place] [address], [address], [place] tel:[phone] [place] [address] right chest pain (chief complaint)pain with deep breathe (chief complaint)ears ringing (chief complaint) CostochondritisTo bacco AbuseHypothyroidi sm October. [address] [place] [address], [id number], [place]. tel:[phone] [facility], [address] [place] [address], [address], [place] tel:[phone] [address] [place] [address] No Information Mar-2 1 [employer]. . [facility], [address] [place] [address], [address], [place] tel:[phone] [address] [place] [address] No Information Mar- 1 Dallas Rhodes. [address] [place] [address], [id number], [place]. tel:[phone] [facility], [address] [place] [address], [address], [place] tel:[phone] [address] [place] [address] No Information Mar-October. [address] [place] [address], [id number], [place]. tel:[phone] [facility], [address] [place] [address], [address], [place] tel:[phone] [address] [place] [address] No Information Mar- [employer]. . [facility], [address] [place] [address], [address], [place] tel:[phone] [facility] No Information [facility] Anitha. [address] [facility], [place], [place], [id number], [place]. tel:[phone] Family History Family Member Type Diagnosis Age At Onset Mother Problem (finding) osteoporosis Sister Problem (finding) Cancer, cervical/ovaria n? Mother Problem (finding) pulmonary emphysema Problem (finding) Maternal grandfather Problem (finding) Maternal grandfather Problem (finding) Maternal grandfather Problem (finding) malignant neoplasm of pharynx (Cause Of ) Mother Problem (finding) RA Immunizations Vaccine Date Status Comments Tdap administered Source: New Imm unization Record Influenza virus vaccine refused Sour ce: New Immunization Record Payers Payer name Insurance type Covered constitution party ID Authoriza tion(s) Medicare NGS MB [id number] Medicare NGS MB [id number] Medicare NGS MB [id number] Social History Type Description Quantity Date Captured Comments Sex Female Smoking Status No Information Gender Identity Female Chief Complaint And Reason For Visit No Information Plan Of Treatment Date Type Action Status Goal FOBT. Due on due Goal Influenza vaccine. Due on due Goal PAP. Due on due Goal Mammogram. Due on 1 due Goal Preventive Visit. Due on Feb due Goal Depression screening. Due on due Goal Colonoscopy. Due on 023 due Goal Cologuard. Due on 9 due Goal Colonoscopy. Due on 023 due Goal Influenza vaccine. Due on due Goal Preventive Visit. Due on Feb due Goal FOBT. Due on due Goal PAP. Due on due Goal Mammogram. Due on 0 due Goal Depression screening. Due on due Goal Cologuard. Due on 9 due Goal Tobacco cessation counseling completed Goal Dietary management education , guidance, and counseling completed Goal Dietary management education , guidance, and counseling completed Goal Dietary management education , guidance, and counseling completed Goal Dietary management education , guidance, and counseling completed Goal Dietary management education , guidance, and counseling completed Goal Dietary management education , guidance, and counseling completed Goal Dietary management education , guidance, and counseling completed Goal Dietary management education , guidance, and counseling completed Goal Dietary management education , guidance, and counseling completed Goal Tobacco cessation counseling completed Goal Dietary management education , guidance, and counseling completed Goal Dietary management education , guidance, and counseling completed Goal Dietary management education , guidance, and counseling completed Goal Dietary management education , guidance, and counseling completed Goal Tobacco cessation counseling completed Goal Dietary management education , guidance, and counseling completed Goal Dietary management education , guidance, and counseling completed Goal Dietary management education , guidance, and counseling completed Goal Tobacco cessation counseling completed Goal Dietary management education , guidance, and counseling completed Goal Dietary management education , guidance, and counseling completed Goal Dietary management education , guidance, and counseling completed Goal Dietary management education , guidance, and counseling completed Goal Dietary management education , guidance, and counseling completed Goal Dietary management education , guidance, and counseling completed Goal Dietary management education , guidance, and counseling completed Goal Dietary management education , guidance, and counseling completed Goal Dietary management education , guidance, and counseling completed Goal Tobacco cessation counseling completed Goal Dietary management education , guidance, and counseling completed Goal Tobacco cessation counseling completed Goal Dietary management education , guidance, and counseling completed Goal Dietary management education , guidance, and counseling completed Goal Dietary management education , guidance, and counseling completed Goal Dietary management education , guidance, and counseling completed Goal Dietary management education , guidance, and counseling completed Goal Tobacco cessatio n counseling or tobacco education counseling completed Goal Tobacco cessation counseling completed Referral Ordered: DX DEXA BONE DENSITY, AXIAL ordered Referral Referred To: Alan Montes [address] [place] [address] Drive [address] [place] [address], [phone] Ordered: Referrals: Orthopedic Surgery. Alan Montes. Evaluate and treat ordered Referral Ordered: X-RAY EXAM CHEST 2 VIEWS ordered Referral Referred To: Rosemary Nagel [address] [facility] [place] [address] [place], [phone] Ordered: Referrals: Cardiology. Rosemary Nagel. Evaluate and treat Appointment date/timeframe: 03/09/2018 ordered Referral Referred To: Theron Lagos [address] [place], [phone] Ordered: Referrals: Neurology. Theron Lagos. Evaluate and treat Appointment date/timeframe: 04/20/2018 ordered Referral Ordered: BREAST TOMOSYNTHESIS BI, ADD ON ordered Referral Ordered: MG Screening Mammo, CAD (When Performed)bilateral ordered Referral Referred To: Sadi Edwards [address] [place] [address] [place], [phone] Ordered: Referrals: Surgery. Sadi Edwards. Location: [facility]. Evaluate and treat Appointment date/timeframe: 01/19/2018 ordered Referral Ordered: CR ANKLE 3 VIEWS Left ordered Referral Ordered: CR FOOT 3 VIEWS Bilateral ordered Referral Ordered: CR Bilateral Hips Bilateral ordered Referral Ordered: CR T-SPINE 2 VIEWS ordered Referral Ordered: CR HUMERUS Right ordered Referral Referred To: Dario Valencia [address] [place], [place] [phone] Ordered: Referrals: Cardiology. Dario Valencia. Evaluate and treat Appointment date/timeframe: 11/03/2016 ordered Referral Ordered: CR PA & LAT CHEST ordered Referral Ordered: Referrals: Diagnostic Radiology. Evaluate and treat Appointment date/timeframe: 05/22/2015 ordered Referral Ordered: CR ANKLE 3 VIEWS Right ordered Referral Referred To: Tamika Vazquez DRY FINISHER [address] [place], [phone] Ordered: Referrals: Multiple Drum Sander Helper. Tamika Vazquez DRY FINISHER. Location: [facility]. Evaluate and treat Appointment date/timeframe: 02/27/2015 ordered Referral Ordered: CR KNEE 3 VIEWS Right ordered Referral Ordered: CR KNEE 3 VIEWS Right weight bearing ordered Referral Referred To: Bryan Felix [address] [place] [address] [address] [place], [address] [phone] Ordered: Referrals: Neurosurgery. Bryan Felix. Evaluate and treat Appointment date/timeframe: 06/15/2014 ordered Referral Referred To: XRay Department [facility] [address] [place], [phone] Ordered: Referrals: Diagnostic Radiology. XRay Department [facility]. Diagnostic testing Appointment date/timeframe: 04/21/2014 ordered Referral Referred To: Wood Greenberg [address] [place], [phone] Ordered: Referrals: Podiatry. Wood Greenberg. Evaluate and treat Appointment date/timeframe: 05/19/2014 ordered Referral Ordered: CR FOOT 3 VIEWS Right ordered Referral Referred To: Wale Coe [address] [place], [address] [phone] Ordered: Referrals: Cardiology. Wale Coe. Evaluate and treat Appointment date/timeframe: 03/29/2014 ordered Referral Referred To: Yudith Arnold [address] [facility] [address] [place], [phone] Ordered: Referral: Yudith Arnold. Evaluate and treat. Appointment date/timeframe: 08/26/2013 ordered Referral Ordered: MG Screening mammography digital ordered Referral Ordered: MG COMP SCREEN MAMMOGRAM ADD-ON DIGITAL ordered Referral Ordered: CR HIPS WES AP/LA ordered Referral Ordered: CR FEMUR Left ordered Referral Ordered: CR L-SPINE OBLIQUE 4 VIEWS ordered Referral Referred To: Ghulam Bansal [address] [place] [address] Drive [address] [place], [phone] Ordered: Referral: Ghulam Bansal. Evaluate and treat. Appointment date/timeframe: 12/31/2012 ordered Referral Referred To: Hubert Becker [address] [place], [phone] Ordered: Referral: Hubert Becker. Evaluate and treat. Appointment date/timeframe: 06/28/2012 ordered Referral Referred To: Tamika Vazquez APRN [address] [place], [phone] Ordered: Referral: Tamika Vazquez APRN. Evaluate and treat. Appointment date/timeframe: 06/23/2012 ordered Referral Ordered: Referral: Hand Surgery. Evaluate and treat. ordered History Of Present Illness Encounter Date Complaint History Of Prese nt Illness Musculoskeletal pain Severity le arnold is moderate. The problem is stable. The pain is aching, burning, dull and throbbing. Hand Dominance: right. Additional information: s/p fall on 10/14/18--slipped on gravels/mud--went to ER--xrays negative--went over incline--landed full weight on right knee. hypertension The symptoms beg an gradually. The severity has been described as being moderate. It is currently stable. Risk factors include family history HTN, gout or CAD, high salt intake, inactive lifestyle and smoking. Associated symptoms include fatigue. Hyperlipidemia Risk factors inc lude age over 50, sedentary life style and thyroid disease. The patient is adhering to medication, follow-up, diet and exercise for their hyperlipidemia. Positive comorbidity factors include thyroid disease. Hyperlipidemia management includes improved diet, increased exercise and statins. Associated symptoms include increased fatigue, joint pain and myalgia. Follow Up Hosp Visit hypertension The symptoms beg an gradually. The severity has been described as being moderate. It is currently stable. Risk factors include family history HTN, gout or CAD, high salt intake, inactive lifestyle and smoking. Associated symptoms include fatigue. Pertinent negatives include chest pain, claudication, confusion, diaphoresis, dyspnea, epistaxis, headache, hematuria, irregular heartbeat/palpitations, nausea, tinnitus, transient weakness, tremor, visual disturbances and vomiting. Additional information: sees cardoiology again on 07/20/18 Hyperlipidemia Risk factors inc lude age over 50, sedentary life style and thyroid disease. The patient is adhering to medication, follow-up, diet and exercise for their hyperlipidemia. Positive comorbidity factors include thyroid disease. Hyperlipidemia management includes improved diet, increased exercise and statins. Associated symptoms include increased fatigue, joint pain and myalgia. Pertinent negatives include chest pain, claudication, diaphoresis, dyspnea, hematuria, nausea, palpitations, transient weakness and vomiting. taken nitro chest pain The patient pres ents with a complaint of chest pain. The patient denies dyspnea and fatigue. The chest pain is associated with dyspnea on exertion. The patient denies any hemoptysis. Blurry vision The patient is p resent for evaluation of Blurry vision in the right eye and left eye. It affects OU. The condition is described as blurring. Patient denies eye pain. Associated symptoms include: floaters. Headaches The 57 year old female presents for evaluation of Headaches in the right eye and left eye. It affects OU. The condition is described as blurring. Patient denies eye pain. Associated symptoms include: change in vision. hypertension The symptoms beg an gradually. The severity has been described as being moderate. It is currently improving. Risk factors include family history HTN, gout or CAD, high salt intake, inactive lifestyle and smoking. Associated symptoms include fatigue. Pertinent negatives include chest pain, claudication, confusion, diaphoresis, dyspnea, epistaxis, headache, hematuria, irregular heartbeat/palpitations, nausea, tinnitus, transient weakness, tremor, visual disturbances and vomiting. Additional information: saw flashing light in right eye with zigzags noted--lasted for few seconds--saw Nalini--started on metoprolol--doing better Hyperlipidemia Risk factors inc lude age over 50, sedentary life style and thyroid disease. The patient is adhering to medication, follow-up, diet and exercise for their hyperlipidemia. Positive comorbidity factors include thyroid disease. Hyperlipidemia management includes improved diet, increased exercise and statins. Associated symptoms include increased fatigue, joint pain and myalgia. Follow Up of hypertension The sy mptoms began gradually. It is currently getting worse. Risk factors include family history HTN, gout or CAD, high salt intake, inactive lifestyle and smoking. Associated symptoms include fatigue and headache. Pertinent negatives include chest pain, claudication, confusion, diaphoresis, dyspnea, epistaxis, hematuria, irregular heartbeat/palpitations, nausea, tinnitus, transient weakness, tremor, visual disturbances and vomiting. Additional information: near syncope episode - 1 month ago. low bp. hctz 25 d/c. now tachycardic, flashing lights x 1 today. aspirin dc december. Cold symptoms Onset: gradual. Severity: moderate. The patient describes the cough as hacking and moist. It occurs persistently. Context: allergies, COPD and sick family member. Symptoms are aggravated by allergens. Associated symptoms include cough, fatigue, nasal congestion, post-nasal drainage, rhinitis, rhinorrhea, sinus pressure and sore throat. Pertinent negatives include dyspnea and epistaxis. The patient has a history of allergies. hypertension The symptoms beg an gradually. The severity has been described as being mild-moderate. It is currently stable. Risk factors include family history HTN, gout or CAD, high salt intake, inactive lifestyle and smoking. Associated symptoms include fatigue. Pertinent negatives include chest pain, claudication, confusion, diaphoresis, dyspnea, epistaxis, headache, hematuria, irregular heartbeat/palpitations, nausea, tinnitus, transient weakness, tremor, visual disturbances and vomiting. Medicare preventive The patient has not felt depressed and has had interest and pleasure doing things recently. SLUMS assessment completed, with a total score of 30, Normal. The ''Up and Go'' test took less than 30 seconds and the patient does not need help with activities of daily living.The patient is not at risk for falls.The patient has not fallen in the last year.The fall(s) did not result in injury. The patient has smoke detectors, firearms, carbon monoxide detectors, electric heating in the home. There is no radon in the patient's home. Patient reports using a seatbelt in vehicles. Patient reports a healthy diet. Patient does not take calcium. Patient reports taking Vitamin D. Patient does not take a multivitamin. Patient does not take folic acid. Relevant history is positive for passive smoke exposure. Relevant history is negative for tobacco use, alcohol use. GERD The severity of the problem is moderate. The symptoms are intermittent. The location is epigastric. Symptoms are relieved by H2 blockers and proton pump inhibitors. Associated symptoms include heartburn and nausea. Pertinent negatives include back pain, bloating, blood in stool, change in appetite, constipation, diaphoresis, diarrhea, dizziness, dyspnea, eructation, fever, flank pain, flatulence, hematuria, jaundice, lightheadedness, myalgia, rash, vaginal bleeding, vaginal discharge, vomiting, weight gain and weight loss. Additional information: went for f/u with Dr Edwards today on recent egd--on protonix and zantac--after leaving his office--got lightheaded--got out of car--stood up--passed out. Musculoskeletal pain Severity le arnold is moderate. It occurs intermittently. The pain is aching, burning, dull and throbbing. Context: there is no injury. The pain is aggravated by bending, climbing (and descending) stairs, movement, walking and standing. Associated symptoms include decreased mobility, difficulty initiating sleep, joint instability, joint tenderness, nocturnal awakening, nocturnal pain, numbness and spasms. Hand Dominance: right. hypertension The symptoms beg an gradually. The severity has been described as being moderate. It is currently stable. Risk factors include family history HTN, gout or CAD, high salt intake, inactive lifestyle and smoking. Associated symptoms include fatigue. Pertinent negatives include chest pain, claudication, confusion, diaphoresis, dyspnea, epistaxis, headache, hematuria, irregular heartbeat/palpitations, nausea, tinnitus, transient weakness, tremor, visual disturbances and vomiting. Thyroid problems The severity of the problem is moderate. The problem has improved. Presenting symptoms include fatigue. Presenting symptoms do not include atrial fibrillation, dysphagia, enlarged thyroid, exophthalmus, hoarseness, increased perspiration, insomnia, intolerance to cold, intolerance to heat, irregular menses, muscle weakness, nervousness, rapid heart beat, skin and nail changes, tremor, weight gain, weight loss, hard mass and rapid growth of nodule. Risk factors include age, female and history of hypothyroidism. Dizziness The problem is c hronic. It occurs occasionally. The patient describes it as (an) floating, imbalance, impending doom and light-headed. It occurs while bending, extending neck, turning in bed, turning neck and waking up. Symptom is aggravated by bending, extension of neck, getting out of bed, rapid movement, rapid rise, turning head to left and turning head to right. Relieving factors include rest. Associated symptoms include hearing loss, otalgia and tinnitus. Pertinent negatives include chest pain, diplopia, ear drainage, fever, headache, incoordination, loss of consciousness, nausea, neck stiffness, palpitations, paresthesia, seizures, slurred speech, vision loss, vomiting and weakness. Thyroid problems (FP) The severi ty of the problem is moderate. The problem has improved. Presenting symptoms include fatigue. Presenting symptoms do not include atrial fibrillation, dysphagia, enlarged thyroid, exophthalmus, hoarseness, increased perspiration, insomnia, intolerance to cold, intolerance to heat, irregular menses, muscle weakness, nervousness, rapid heart beat, skin and nail changes, tremor, weight gain, weight loss, hard mass and rapid growth of nodule. Risk factors include age, female and history of hypothyroidism. Musculoskeletal pain Onset: grad ual. Severity level is moderate. It occurs intermittently. The pain is aching, burning, dull and throbbing. The pain is aggravated by bending, climbing (and descending) stairs, movement, walking and standing. Associated symptoms include decreased mobility, difficulty initiating sleep, joint instability, joint tenderness, nocturnal awakening, nocturnal pain, numbness and tingling in the legs. Hand Dominance: right. hypertension The symptoms beg an gradually. The severity has been described as being moderate. It is currently stable. Risk factors include high salt intake, inactive lifestyle and smoking. Pertinent negatives include chest pain, claudication, confusion, diaphoresis, dyspnea, epistaxis, fatigue, headache, hematuria, irregular heartbeat/palpitations, nausea, tinnitus, transient weakness, tremor, visual disturbances and vomiting. Hyperlipidemia Risk factors inc lude age over 50. The patient is adhering to medication, follow-up, diet and exercise for their hyperlipidemia. Hyperlipidemia management includes improved diet, increased exercise and statins. Associated symptoms include increased fatigue, joint pain and myalgia. Pertinent negatives include chest pain, claudication, constipation, diaphoresis, diarrhea, dyspnea, heartburn, hematuria, nausea, palpitations, transient weakness and vomiting. Follow Up of hospital chest pain hypertension The symptoms beg an gradually. The severity has been described as being moderate. It is currently stable. Risk factors include high salt intake, inactive lifestyle and smoking. Pertinent negatives include chest pain, claudication, confusion, diaphoresis, dyspnea, epistaxis, fatigue, headache, hematuria, irregular heartbeat/palpitations, nausea, tinnitus, transient weakness, tremor, visual disturbances and vomiting. GERD The severity of the problem is moderate. The symptoms are intermittent. Symptoms are relieved by proton pump inhibitors. Associated symptoms include heartburn and nausea. Pertinent negatives include back pain, bloating, blood in stool, change in appetite, constipation, diaphoresis, diarrhea, dizziness, dyspnea, eructation, fever, flank pain, flatulence, hematuria, jaundice, lightheadedness, myalgia, rash, vaginal bleeding, vaginal discharge, vomiting, weight gain and weight loss. hypothyroidism Pt is here for f /u--hypthyroidism--recently changed synthroid dose--here for labs today. No presyncope/syncope. No cp/sob/n/v/d/f/c. Thyroid problems (FP) The severi ty of the problem is moderate. The problem has improved. Presenting symptoms include fatigue. Presenting symptoms do not include atrial fibrillation, dysphagia, enlarged thyroid, exophthalmus, hoarseness, increased perspiration, insomnia, intolerance to cold, intolerance to heat, irregular menses, muscle weakness, nervousness and hard mass. Risk factors include age, female and history of hypothyroidism. Musculoskeletal pain Onset: grad ual. Severity level is moderate. It occurs constantly and is worsening. Location: right shoulder (rotator cuff). The pain is aching, burning, dull and throbbing. Context: there is an injury. Trauma type: fall, occurred at home, 4 Weeks ago. The pain is aggravated by lifting, movement and pushing. Associated symptoms include decreased mobility, difficulty initiating sleep, joint instability, joint tenderness, nocturnal awakening, nocturnal pain and tingling in the arms. Hand Dominance: right. Medicare preventive The patient has not felt depressed and has had interest and pleasure doing things recently. SLUMS assessment completed, with a total score of 30, Normal.The patient is at risk for falls.The patient has fallen 1 times in the last year.The fall(s) resulted in injury.Details:back injury. Relevant history is positive for passive smoke exposure. Relevant history is negative for alcohol use. hypertension The symptoms beg an gradually. The severity has been described as being mild-moderate. It is currently stable. Risk factors include high salt intake, inactive lifestyle and smoking. Pertinent negatives include chest pain, claudication, confusion, diaphoresis, dyspnea, epistaxis, fatigue, headache, hematuria, irregular heartbeat/palpitations, nausea, tinnitus, transient weakness, tremor, visual disturbances and vomiting. Thyroid problems (FP) The severi ty of the problem is moderate. The problem has improved. Presenting symptoms include fatigue. Presenting symptoms do not include atrial fibrillation, dysphagia, enlarged thyroid, exophthalmus, hoarseness, increased perspiration, insomnia, intolerance to cold, intolerance to heat, irregular menses, muscle weakness, nervousness and hard mass. Risk factors include age, female and history of hypothyroidism. back pain Onset: gradual w ith injury. Severity level is moderate. The problem is fluctuating. It occurs persistently. Location of pain is middle back and lower back.The patient describes the pain as an ache, burning, dull and numbness. Symptoms are aggravated by ascending stairs, bending, changing positions, daily activities, descending stairs, extension, flexion, sitting, standing, twisting and walking. vitamin D hypertension The symptoms beg an gradually. The severity has been described as being moderate. It is currently stable. Risk factors include high salt intake, inactive lifestyle and smoking. Pertinent negatives include chest pain, claudication, confusion, diaphoresis, dyspnea, epistaxis, fatigue, headache, hematuria, irregular heartbeat/palpitations, nausea, tinnitus, transient weakness, tremor, visual disturbances and vomiting. Musculoskeletal pain Onset: grad ual. Severity level is moderate. The problem is fluctuating. The pain is aching, burning, dull and throbbing. The pain is aggravated by bending, climbing (and descending) stairs, movement, sitting, walking and standing. Associated symptoms include decreased mobility, difficulty initiating sleep, joint instability, nocturnal awakening, nocturnal pain, numbness, spasms, tingling in the arms and tingling in the legs. Hand Dominance: right. Thyroid Pt is here for f /u on hypothyroid. No cp/sob/n/v/d/f/c. No presyncope/syncope. hypertension The symptoms beg an gradually. The severity has been described as being moderate. It is currently stable. Risk factors include high salt intake, inactive lifestyle and smoking. Pertinent negatives include chest pain, claudication, confusion, diaphoresis, dyspnea, epistaxis, fatigue, headache, hematuria, irregular heartbeat/palpitations, nausea, tinnitus, transient weakness, tremor, visual disturbances and vomiting. Hyperlipidemia Risk factors inc lude age over 50. The patient is adhering to medication, follow-up, diet and exercise for their hyperlipidemia. Hyperlipidemia management includes improved diet, increased exercise and statins. Associated symptoms include increased fatigue, joint pain and myalgia. Pertinent negatives include chest pain, claudication, constipation, diaphoresis, diarrhea, dyspnea, heartburn, hematuria, nausea, palpitations, transient weakness and vomiting. Earache Onset: gradual. Severity level is mild-moderate. The patient states the earache is in both ears. Associated symptoms include cough, ear popping, ear pressure and malaise. Pertinent negatives include bleeding from ear(s), congestion (nasal), decreased appetite, dizziness, drainage (clear), drainage (purulent), fever, fullness in ears, hearing deficit, irritability, loss of balance, mastoid bone tenderness, nausea, redness/swelling outer ear, ringing in ears, tooth pain and vomiting. back pain Onset: gradual w ithout injury. Severity level is moderate. It occurs persistently. Location of pain is upper back and lower back. Pain is radiated to the left arm, right arm, left thigh and right thigh.The patient describes the pain as burning, deep, dull and numbness. Symptoms are aggravated by ascending stairs, bending, changing positions, daily activities, descending stairs, extension, flexion, sitting, standing, twisting and walking. Additional information: recent mri c-spine revealed bulging discs, and l/s spine showed herniations at lower 3 levels. Musculoskeletal pain Onset: grad ual. Severity level is moderate. The problem is fluctuating. The pain is aching, burning, dull and throbbing. The pain is aggravated by bending, climbing (and descending) stairs, movement, walking and standing. Associated symptoms include decreased mobility, difficulty initiating sleep, joint instability, joint tenderness, nocturnal awakening and nocturnal pain. Hand Dominance: right. Additional information: neck and lbp. hypertension The symptoms beg an gradually. The severity has been described as being moderate. It is currently improving. Risk factors include high salt intake, inactive lifestyle and smoking. Pertinent negatives include chest pain, claudication, confusion, diaphoresis, dyspnea, epistaxis, fatigue, headache, hematuria, irregular heartbeat/palpitations, nausea, tinnitus, transient weakness, tremor, visual disturbances and vomiting. Hypothyroidism She states the s ymptoms are chronic and are stable. Pt is here for f/u--ran out of thyroid meds two days ago. Doing well. No cp/sob/n/v/d/f/c. hypertension The symptoms beg an gradually. The severity has been described as being moderate. It is currently stable. Risk factors include high salt intake, inactive lifestyle and smoking. Pertinent negatives include chest pain, claudication, confusion, diaphoresis, dyspnea, epistaxis, fatigue, headache, hematuria, irregular heartbeat/palpitations, nausea, tinnitus, transient weakness, tremor, visual disturbances and vomiting. Cold symptoms Onset: 1 week ag o. The patient describes the cough as productive (of yellow sputum). It occurs persistently. The problem has become gradually worse. Context: allergies. Symptoms are aggravated by lying down. There are no relieving factors. Associated symptoms include cough, nasal congestion, post-nasal drainage and sinus pressure. Pertinent negatives include chills, dyspnea, dyspnea on exertion, epistaxis, fatigue, fever, heartburn, hemoptysis, hoarseness, night sweats, pleuritic pain, rhinitis, rhinorrhea, sore throat, weight loss and wheezing. The patient has a history of allergies. The patient does not have a history of asthma. hypertension The symptoms beg an gradually. The severity has been described as being moderate. It is currently stable. Risk factors include high salt intake, inactive lifestyle and smoking. Pertinent negatives include chest pain, claudication, confusion, diaphoresis, dyspnea, epistaxis, fatigue, headache, hematuria, irregular heartbeat/palpitations, nausea, tinnitus, transient weakness, tremor, visual disturbances and vomiting. Thyroid problems (FP) The severi ty of the problem is moderate. The problem has improved. Presenting symptoms include fatigue. Presenting symptoms do not include atrial fibrillation, dysphagia, enlarged thyroid, exophthalmus, hoarseness, increased perspiration, insomnia, intolerance to cold, intolerance to heat, irregular menses, muscle weakness, nervousness and hard mass. Risk factors include age, female and history of hypothyroidism. Additional information: on synthroid 112mcg daily. Musculoskeletal pain Onset: grad ual. Severity level is mild-moderate. The pain is aching and dull. The pain is aggravated by bending, climbing (and descending) stairs, movement, walking and standing. Associated symptoms include decreased mobility, difficulty initiating sleep, joint instability, joint tenderness, nocturnal awakening, nocturnal pain, spasms and tingling in the legs. Hand Dominance: right. Additional information: slipped off curb at [facility]--injured right knee and right foot--h/o stress fx. Back pain Severity level i s moderate. It occurs persistently. Location of pain is lower back. Pain is radiated to the left thigh and right thigh.The patient describes the pain as an ache, burning, deep, dull and numbness. Symptoms are aggravated by ascending stairs, bending, changing positions, daily activities, descending stairs, extension, flexion, sitting, standing, twisting and walking. hypertension The symptoms beg an gradually. The severity has been described as being moderate. It is currently stable. Risk factors include high salt intake, inactive lifestyle and smoking. Pertinent negatives include chest pain, claudication, confusion, diaphoresis, dyspnea, epistaxis, fatigue, headache, hematuria, irregular heartbeat/palpitations, nausea, tinnitus, transient weakness, tremor, visual disturbances and vomiting. hypertension The symptoms beg an gradually. The severity has been described as being moderate. It is currently stable. Risk factors include high salt intake and inactive lifestyle. Pertinent negatives include chest pain, claudication, confusion, diaphoresis, dyspnea, epistaxis, fatigue, headache, hematuria, irregular heartbeat/palpitations, nausea, tinnitus, transient weakness, tremor, visual disturbances and vomiting. Hyperlipidemia Risk factors inc lude age over 50. The patient is adhering to medication, follow-up, diet and exercise for their hyperlipidemia. Hyperlipidemia management includes improved diet, increased exercise and statins. Pertinent negatives include chest pain, claudication, diaphoresis, dyspnea, hematuria, nausea, palpitations, transient weakness and vomiting. Thyroid problems (FP) The severi ty of the problem is mild. The problem has improved. Presenting symptoms include fatigue. Presenting symptoms do not include atrial fibrillation, dysphagia, enlarged thyroid, exophthalmus, hoarseness, increased perspiration, insomnia, intolerance to cold, intolerance to heat, irregular menses, muscle weakness, nervousness and hard mass. Risk factors include age, female and history of hypothyroidism. Musculoskeletal pain Onset: 3 da ys ago. Severity level is moderate. It occurs constantly and is fluctuating. Location: right knee (patella). The pain radiates to the right leg. The pain is aching and dull. Context: there is no injury. The pain is aggravated by bending, lifting, walking and standing. The pain is relieved by rest. Associated symptoms include decreased mobility, joint instability, joint tenderness, nocturnal pain, spasms and swelling. Pertinent negatives include bruising, crepitus, difficulty initiating sleep, limping, locking, nocturnal awakening, numbness, popping, tingling in the arms, tingling in the legs and weakness. Thyroid problems (FP) The severi ty of the problem is mild. The problem has improved. Presenting symptoms include fatigue. Presenting symptoms do not include atrial fibrillation, dysphagia, enlarged thyroid, exophthalmus, hoarseness, increased perspiration, insomnia, intolerance to cold, intolerance to heat, irregular menses, muscle weakness, nervousness and hard mass. Risk factors include age, female and history of hypothyroidism. hypertension The symptoms beg an gradually. The severity has been described as being moderate. It is currently stable. Risk factors include high salt intake and inactive lifestyle. Pertinent negatives include chest pain, claudication, confusion, diaphoresis, dyspnea, epistaxis, fatigue, headache, hematuria, irregular heartbeat/palpitations, nausea, tinnitus, transient weakness, tremor, visual disturbances and vomiting. Thyroid problems (FP) The severi ty of the problem is moderate. The problem has improved. Presenting symptoms include fatigue. Presenting symptoms do not include atrial fibrillation, dysphagia, enlarged thyroid, exophthalmus, hoarseness, increased perspiration, insomnia, intolerance to cold, intolerance to heat, irregular menses, muscle weakness, nervousness and hard mass. Risk factors include age, female and history of hypothyroidism. Musculoskeletal pain Onset: grad ual. Location: right foot. The pain is aggravated by bending, climbing (and descending) stairs, movement, walking and standing. Associated symptoms include decreased mobility, difficulty initiating sleep, joint instability, joint tenderness, limping, nocturnal awakening and nocturnal pain. Additional information: seeing DR Greenberg for stress fx right foot--in walking boot. hypertension The symptoms beg an gradually. The severity has been described as being moderate. It is currently stable. Pertinent negatives include chest pain, claudication, confusion, diaphoresis, dyspnea, epistaxis, fatigue, headache, hematuria, irregular heartbeat/palpitations, nausea, tinnitus, transient weakness, tremor, visual disturbances and vomiting. Hyperlipidemia Risk factors inc lude age over 50. The patient is adhering to medication, follow-up, diet and exercise for their hyperlipidemia. Hyperlipidemia management includes improved diet, increased exercise and statins. Pertinent negatives include chest pain, claudication, diaphoresis, dyspnea, hematuria, nausea, palpitations, transient weakness and'+ vomiting. Sinus symptoms (acute) The sympt oms are described as minimal. The symptoms have persisted. Associated symptoms include cough, nasal congestion, nocturnal cough, post-nasal drainage, sinus pain, sinus pressure and sneezing. back pain Onset: gradual w ithout injury. Severity level is moderate. The problem is worsening. It occurs persistently. Location of pain is lower back. Pain is radiated to the left thigh.The patient describes the pain as an ache, burning, diffuse, dull and numbness. Symptoms are aggravated by ascending stairs, bending, changing positions, daily activities, descending stairs, extension, flexion, sitting, standing, twisting and walking. MRI Follow Up musculoskeletal pain Severity le arnold is moderate. It occurs constantly and is worsening. Location: right foot. The pain is aching, dull and throbbing. Context: there is no injury. The pain is aggravated by movement, walking and standing. Associated symptoms include decreased mobility, difficulty initiating sleep, joint instability, joint tenderness, nocturnal awakening, nocturnal pain and numbness. GERD The severity of the problem is moderate. The problem is improving. The symptoms are intermittent. The quality of the pain is achy and dull. Symptoms are relieved by H2 blockers and proton pump inhibitors. Associated symptoms include heartburn and nausea. Pertinent negatives include back pain, bloating, blood in stool, change in appetite, constipation, diaphoresis, diarrhea, dizziness, dyspnea, eructation, fever, flank pain, flatulence, hematuria, jaundice, lightheadedness, myalgia, rash, vaginal bleeding, vaginal discharge, vomiting, weight gain and weight loss. Musculoskeletal pain Severity le arnold is mild-moderate. It occurs intermittently and is worsening. The pain is aggravated by bending, climbing stairs and movement. Associated symptoms include decreased mobility, difficulty initiating sleep, joint instability, joint tenderness, nocturnal awakening, nocturnal pain, numbness, popping and spasms. Instructions Date Instruction Additional Infor ty check mri --r/o tear Related to Acute pain of right knee Patient encouraged t o follow low cholesterol diet. Exercise daily. Related to Hyperlipidemia, unspecified Patient advise to fo llow 2 gram sodium diet. Monitor blood pressure at home and bring values into next visit. Related to Essential hypertension Increase activity. Related to Es sential hypertension Follow a low sodium diet. Relate d to Essential hypertension Prescribed activity/ exercise education Related to Prescribed Activity/Exercise Counseling Dietary management e ducation, guidance, and counseling Related to Dietary Surveillance and Counseling Prescribed activity/ exercise education Related to Prescribed Activity/Exercise Counseling Dietary management e ducation, guidance, and counseling Related to Dietary Surveillance and Counseling Patient encouraged t o follow low cholesterol diet. Exercise daily. Related to Hyperlipidemia, unspecified Patient advise to fo llow 2 gram sodium diet. Monitor blood pressure at home and bring values into next visit. Related to Essential hypertension Prescribed activity/ exercise education Related to Prescribed Activity/Exercise Counseling Dietary management e ducation, guidance, and counseling Related to Dietary Surveillance and Counseling Increase activity. Related to Es sential hypertension Follow a low sodium diet. Relate d to Essential hypertension Impression/Plan - 1. Pt ed to wear new Rx ftw and to rtc if simon's persist with new Rx2. Pt ed to rtc if symptoms worsen or monitor x 1yr3. Rx ftw. Monitor x 1yr Dietary management e ducation, guidance, and counseling Related to Dietary Surveillance and Counseling Follow up - Return in 1 year normal ekg. normal n euro. recent dc hctz. start metoprolol 25 mg er one daily. monitor. if symptoms change or worsen rtc or go to er. see pcp in 2-3 weeks Related to Tachycardia Prescribed activity/ exercise education Related to Prescribed Activity/Exercise Counseling Dietary management e ducation, guidance, and counseling Related to Dietary Surveillance and Counseling Increase activity. Related to Es sential hypertension Follow a low sodium diet. Relate d to Essential hypertension Prescribed activity/ exercise education Related to Prescribed Activity/Exercise Counseling Dietary management e ducation, guidance, and counseling Related to Dietary Surveillance and Counseling improved--labs in er Related to Diarrhea, unspecified type Lifestyle modificati ons advised and encouraged. Related to Gastroesophageal reflux disease without esophagitis Prescribed activity/ exercise education Related to Prescribed Activity/Exercise Counseling Dietary management e ducation, guidance, and counseling Related to Dietary Surveillance and Counseling Prescribed activity/ exercise education Related to Prescribed Activity/Exercise Counseling Dietary management e ducation, guidance, and counseling Related to Dietary Surveillance and Counseling Avoid provocative fo ods: citrus, alcohol, coffee, chocolate, mints Related to Gastroesophageal reflux disease without esophagitis Eat smaller meals, n o eating three hours prior to bedtime Related to Gastroesophageal reflux disease without esophagitis Elevate head of bed prior to sle ep Related to Gastroesophageal reflux disease without esophagitis Prescribed activity/ exercise education Related to Prescribed Activity/Exercise Counseling Dietary management e ducation, guidance, and counseling Related to Dietary Surveillance and Counseling Dietary management e ducation, guidance, and counseling Related to Dietary Surveillance and Counseling Prescribed activity/ exercise education Related to Prescribed activity/exercise education Patient advise to fo llow 2 gram sodium diet. Monitor blood pressure at home and bring values into next visit. Related to Essential (primary) hypertension Prescribed activity/ exercise education Related to Prescribed activity/exercise education Dietary management e ducation, guidance, and counseling Related to Dietary Surveillance and Counseling Increase activity. Related to Es sential (primary) hypertension Follow a low sodium diet. Relate d to Essential (primary) hypertension Lifestyle modificati ons advised and encouraged. Related to Overweight Patient advise to fo llow 2 gram sodium diet. Monitor blood pressure at home and bring values into next visit. Related to Essential (primary) hypertension Patient encouraged t o follow low cholesterol diet. Exercise daily. Related to Hyperlipidemia, unspecified Prescribed activity/ exercise education Related to Prescribed activity/exercise education Dietary management e ducation, guidance, and counseling Related to Dietary Surveillance and Counseling Increase activity. Related to Es sential (primary) hypertension Follow a low sodium diet. Relate d to Essential (primary) hypertension Prescribed activity/ exercise education Related to Prescribed activity/exercise education Dietary management e ducation, guidance, and counseling Related to Dietary Surveillance and Counseling Patient advise to fo llow 2 gram sodium diet. Monitor blood pressure at home and bring values into next visit. Related to Essential (primary) hypertension Lifestyle modificati ons advised and encouraged. Related to Gastro-esophageal reflux disease without esophagitis Prescribed activity/ exercise education Related to Prescribed activity/exercise education Dietary management e ducation, guidance, and counseling Related to Dietary Surveillance and Counseling Eat smaller meals, n o eating three hours prior to bedtime Related to Gastro-esophageal reflux disease without esophagitis Elevate head of bed prior to sle ep Related to Gastro-esophageal reflux disease without esophagitis Increase activity. Related to Mi xed hyperlipidemia Adjust diet. Related to Mixed hyperlipidemia Adjust diet. Related to Mixed hyperlipidemia Avoid provocative fo ods: citrus, alcohol, coffee, chocolate, mints Related to Gastro-esophageal reflux disease without esophagitis Prescribed activity/ exercise education Related to Prescribed activity/exercise education Dietary management e ducation, guidance, and counseling Related to Dietary Surveillance and Counseling declines mri Related to Acute pain of right shoulder Prescribed activity/ exercise education Related to Prescribed activity/exercise education Dietary management e ducation, guidance, and counseling Related to Dietary Surveillance and Counseling Patient advise to fo llow 2 gram sodium diet. Monitor blood pressure at home and bring values into next visit. Related to Essential (primary) hypertension Lifestyle modificati ons advised and encouraged. Related to Overweight Patient encouraged t o follow low cholesterol diet. Exercise daily. Related to Hyperlipidemia, unspecified colo and mammogram are utd. Rela hanna to Encounter for general adult medical examination without abnormal findings Prescribed activity/ exercise education Related to Prescribed activity/exercise education Dietary management e ducation, guidance, and counseling Related to Dietary Surveillance and Counseling Prescribed activity/ exercise education Related to Prescribed activity/exercise education Dietary management e ducation, guidance, and counseling Related to Dietary Surveillance and Counseling colo and mammogram are utd. Rela hanna to Encounter for general adult medical examination with abnormal findings Prescribed activity/ exercise education Related to Prescribed activity/exercise education Dietary management e ducation, guidance, and counseling Related to Dietary Surveillance and Counseling Avoid provocative fo ods: citrus, alcohol, coffee, chocolate, mints Related to Gastro-esophageal reflux disease without esophagitis Eat smaller meals, n o eating three hours prior to bedtime Related to Gastro-esophageal reflux disease without esophagitis Elevate head of bed prior to sle ep Related to Gastro-esophageal reflux disease without esophagitis colo and mammogram are utd. Rela hanna to Encounter for general adult medical examination without abnormal findings Patient advise to fo llow 2 gram sodium diet. Monitor blood pressure at home and bring values into next visit. Related to Essential (primary) hypertension Increase activity. Related to Es sential (primary) hypertension Stop smoking. Related to Essen tial (primary) hypertension Follow a low sodium diet. Relate d to Essential (primary) hypertension Prescribed activity/ exercise education Related to Prescribed activity/exercise education Dietary management e ducation, guidance, and counseling Related to Dietary Surveillance and Counseling Lifestyle modificati ons advised and encouraged. Related to Overweight Prescribed activity/ exercise education Related to Prescribed activity/exercise education Dietary management e ducation, guidance, and counseling Related to Dietary Surveillance and Counseling declines neurosx referral Relate d to Other intervertebral disc displacement, lumbosacral region Prescribed activity/ exercise education Related to Prescribed activity/exercise education Dietary management e ducation, guidance, and counseling Related to Dietary Surveillance and Counseling Patient advise to fo llow 2 gram sodium diet. Monitor blood pressure at home and bring values into next visit. Related to Essential (primary) hypertension Lifestyle modificati ons advised and encouraged. Related to Gastro-esophageal reflux disease without esophagitis Prescribed activity/ exercise education Related to Prescribed activity/exercise education Dietary management e ducation, guidance, and counseling Related to Dietary Surveillance and Counseling Increase activity. Related to Es sential (primary) hypertension Stop smoking. Related to Essen tial (primary) hypertension Follow a low sodium diet. Relate d to Essential (primary) hypertension cefdinir x 10 days i nstructed to take medication until goneRTC if not better or worse Related to Acute maxillary sinusitis, recurrence not specified continue xyzal daily resume singulair daily Related to Allergic rhinitis, unspecified Prescribed activity/ exercise education Related to Prescribed activity/exercise education Dietary management e ducation, guidance, and counseling Related to Dietary Surveillance and Counseling Patient advise to fo llow 2 gram sodium diet. Monitor blood pressure at home and bring values into next visit. Related to Essential (primary) hypertension Lifestyle modificati ons advised and encouraged. Related to Obesity, unspecified Prescribed activity/ exercise education Related to Prescribed activity/exercise education Dietary management e ducation, guidance, and counseling Related to Dietary Surveillance and Counseling Increase activity. Related to Es sential (primary) hypertension Stop smoking. Related to Essen tial (primary) hypertension Follow a low sodium diet. Relate d to Essential (primary) hypertension Lifestyle modificati ons advised and encouraged. Related to Obesity, unspecified Patient advise to fo llow 2 gram sodium diet. Monitor blood pressure at home and bring values into next visit. Related to Essential (primary) hypertension Prescribed activity/ exercise education Related to Prescribed activity/exercise education Dietary management e ducation, guidance, and counseling Related to Dietary Surveillance and Counseling all utd Related to Routi ne medical exam Lifestyle modificati ons advised and encouraged. Related to Obesity Stop smoking. Related to Hyper tension, Unspecified Follow a low sodium diet. Relate d to Hypertension, Unspecified Increase activity. Related to Hy pertension, Unspecified Prescribed activity/ exercise education Related to Prescribed activity/exercise education Dietary management e ducation, guidance, and counseling Related to Dietary Surveillance and Counseling Prescribed activity/ exercise education Related to Prescribed activity/exercise education Dietary management e ducation, guidance, and counseling Related to Dietary Surveillance and Counseling as per cardiology Related to Hea rt murmur mammogram and colono scopy are utd; declines pap at this time--wishes to do this fall Related to Routine medical exam Patient advise to fo llow 2 gram sodium diet. Monitor blood pressure at home and bring values into next visit. Related to Hypertension, Unspecified Patient encouraged t o follow low cholesterol diet. Exercise daily. Related to Other and unspecified hyperlipidemia Prescribed activity/ exercise education Related to Obesity, unspecified Dietary management e ducation, guidance, and counseling Related to Obesity, unspecified schedule mammogram; colo is utd Related to Routine medical exam Lifestyle modificati ons advised and encouraged. Related to GERD as per DR Greenberg Related to Stres s fracture of metatarsals Patient advise to fo llow 2 gram sodium diet. Monitor blood pressure at home and bring values into next visit. Related to Hypertension, Unspecified Patient encouraged t o follow low cholesterol diet. Exercise daily. Related to Other and unspecified hyperlipidemia stop smoking Related to COPD Prescribed activity/ exercise education Related to Overweight Dietary management e ducation, guidance, and counseling Related to Overweight heat/ice prn Related to Lumba r disc herniation Patient advise to fo llow 2 gram sodium diet. Monitor blood pressure at home and bring values into next visit. Related to Hypertension, Unspecified Lifestyle modificati ons advised and encouraged. Related to GERD Increase activity. Related to Hy pertension, Unspecified Stop smoking. Related to Hyper tension, Unspecified Follow a low sodium diet. Relate d to Hypertension, Unspecified Lifestyle modificati ons advised and encouraged. Related to GERD tsh is utd Related to Unspe cified hypothyroidism Dietary management e ducation, guidance, and counseling Related to Overweight Avoid provocative fo ods: citrus, alcohol, coffee, chocolate, mints Related to GERD Prescribed activity/ exercise education Related to Overweight Assessments Type Assessment Date No Information
[2025-03-23 10:10] VITALS: BP 116/72; PULSE 68; RESP 20; TEMP 36; O2SAT 97
[2025-03-23] MEDS: DENOSUMAB 60 MG/ML SYRINGE SUBCUT (10:10)
== END 2025-03-23 23:59 | disposition home or self-care (01) ==
LOC: INF 10:06
PROVIDERS: PCP Nurse Practitioner Family; Visit Provider Nurse Practitioner Family
DX: M81.0 Age-related osteoporosis without current pathological fracture (principal)
CPT/HCPCS: 96372; J0897

== ENCOUNTER 2025-03-30 15:14 | Outpatient (CLI) | payer MEDICARE, SELFPAY ==
--- OUTSIDE RECORDS SUMMARY | 2023-11-09 05:45 | XMS_ITS ---
Author Organization [facility] Address [address] [place] [address] PRESTON Potts [phone] Care Team Providers Care Child Care Centre Director Name Role Phone Shoaib Marin Unavailable [phone] Allergies Allergen (clinical drug ingredient) Drug/Non Drug Allergy documented on EMR Reaction Allergy Type Onset Date Status Penicillin Unknown Drug Allergy Active REASON FOR VISIT 6 Month Check Up Social History Tobacco Use: Social History Observation Description Date Details (start date - stop date) Current Smoker NA - NA CURRENT TOBACCO USE: Question Answer Notes Are you a: current smoker 10 Cigarettes Da silva Encounters Encounter Location Date Provider Diagnosis [facility] [address] [place] [address] PRE[place] Potts [phone] 11/09/2023 Shoaib Marin Plan Of Treatment No Information Progress Notes * PARKERVALENTINOSOBIADANN MistryCHRISSYDOB:[birth year] (64 yo F)Acc No.[id number]:11/09/2023 Progress Notes Patient: SUELLEN WESTBROOK Provider: Char Mrain M.D. :1960 A ge:62 Y S ex:Female Date:11/09/2023 Address:[address] [place], [place] [phone] Subjective: * Chief Complaints: * 1 . 6 Month Check Up. * HPI: C ardiology: 62 year old female presents with c/o Blood Pressure Elevated?Pt here for 6 mo f/u on hypertension, states she is doing well and does not have any concerns.? c/o Hyperlipidemia p t is fasting today. E ndocrinology: c/o Hypothyroidism. * ROS: D ERMATOLOGY: no R tejas. n o H martín. G ASTROENTEROLOGY: no N ausea. n o V omiting. U ROLOGY: no D ifficulty urinating. n o B lood in urine. * Medical History: C oronary Artery Disease, Myocardial Infarction, Hypertension, Hyperlipidemia, Hypothyroidism, Sinus Allergy, Depression, Diverticulosis, Arthritis, Sleep apnea, COPD, Allergic rhinitis, 60 pack year smoking history as of 2021, Colon polyps, Intrinsic factor antibody, Lumbar Disc Disease. * Surgical History: L [facility] of Chest 1964, Cholecystectomy 1980, Colonoscopy 2020. * Hospitalization/Major Diagno stic Procedure: D enies Past Hospitalization. * Family History: 1 sister(s) . 1 son(s) , 1 daughter(s) . . * Social History: C URRENT TOBACCO USE: Yes A re you a: c urrent smoker 10 Cigarettes Daily. C affeine: yes, frequency: 2-3 Cups Daily. Alcohol: no. * Allergies: P enicillin. Objective: * Vitals: Assessment: Plan: * Treatment: * Images: Billing Information: * Visit Code: * Procedure Codes: * Electronic signature of Nahomi Marin MD on 03/30/2025 at 03:31 PM EDT Sign off status: Pending * Provider: Char Marin M.D. Date: 0 11/09/2023 Generated for Ivanna ibarra/April/eTransmitting on: 0 03/30/2025 03:31 PM EDT History and Physical Notes * HPI (History of Present Illness) Category Sub-Category Detail Notes Category Not es Endocrinology Hypothyroidism Cardiology Blood Pressure Elevated Pt here for 6 mo f/u on hypertension, states she is doing well and does not have any concerns Hyperlipidemia pt is fasting today
--- NOTE | 2025-03-30 15:16 | CT_ITS ---
FINAL REPORT TECHNIQUE: Thin section axial images were obtained through the lungs using a low-dose technique per lung cancer screening protocol. Reconstruction images were obtained using the axial data. Exam was performed using dose reduction technique. This study was performed with techniques to keep radiation doses as low as reasonably achievable (ALARA). Individualized dose reduction techniques using automated exposure control or adjustment of mA and/or kV according to the patient's size were employed. CLINICAL HISTORY: lung cancer screening former smoker quit 3 years ago smoked 2 ppd x 50 years ago COMPARISON: 03/28/2024 FINDINGS: CTDLvol: 2.90 DLP: 96.38 Former smoker who quit 3 years ago 100 pack year history Lungs: No acute pulmonary abnormality. A 4 mm nodule is once again noted in the right major fissure, stable in size and appearance, best seen on image #44 of series 4. No additional lymph nodes are identified. Lymph nodes: No thoracic lymphadenopathy. Mediastinum: Heart size is normal. Prominent coronary artery calcifications are once again present. Pleura/pericardium: No pleural or pericardial effusion. Other: No acute abnormality in the upper abdomen. IMPRESSION: Stable 4 mm nodule in the right major fissure, likely intrafissural lymph node. No new nodules are identified. Lung RADS: 2S Recommendation: 12-month LDCT follow-up. Reviewed, Interpreted and Dictated by Shania Gan MD Transcribed by Shirlene Smith Authenticated and [facility]
--- OUTSIDE RECORDS SUMMARY | 2025-03-30 15:31 | XMS_ITS | Encounter Summary ---
Author Organization [facility] Address [address] [place] [address] Care Team Providers Care Factory Focus Technician Name Role Phone MengMandie hess JEANNETTE Primary Care Provider +1- [phone] Reason for Visit * Reason Onset Date Comments HCN - Patient Message 03/14/2025 Encounter Details Date Type Department Care Team (Late st Contact Info) Description 03/14/2025 Telephone [facility] Endocrinology [address] [place] [address] Jim Sierra MD 2[address] [facility] [address] [place] [address] HCN - Patient Message Social [...] RN - 03/14/2025 11:03 AM EDT Contacted [facility] in [place] spoke with Sherrill in Medical Records to request lab results be faxed to our office . Monitor for lab results Marta Bennett, RN * Telephone Encounter - Carolina Summers - 03/14/2025 10:11 AM EDT Clinical Concern/Question Reason for Call: Patient had her lab work done this morning at [facility] in [place] Best contact number: [phone] (home) Optimal time of day to reach caller: ANYTIME Additional comments/information from caller: Note: Please do not reply to this message. Follow-up communication and further actions as a result of this message need to be communicated with the patient directly, if the patient is not active onMyChart. If the patient is active on MyChart, they will receive notification of the communication/outcome via [employer]. documented in this encounter Plan of Treatment Upcoming Encounters Date Type Department Care Team (Late st Contact Info) Description 04/28/2025 9:40 AM EDT [facility] [address] [place] [address] Jim Sierra MD [address] [facility] [address] [place] [address] documented as of this encounter [...] documented as of this encounter Care Teams Factory Focus Technician Relationship Specialty Start Date End Date Mandie Meng APRN [address] [place] [address] PCP - General 09/02/24 documented as of this encounter
--- OUTSIDE RECORDS SUMMARY | 2025-03-30 15:31 | XMS_ITS | Encounter Summary ---
Author Organization Healthcare Address [address] [place] [address] Care Team Providers Care Check Writer Name Role Phone Mandie Meng JEANNETTE Primary Care Provider +1- [phone] Encounter Details Date Type Department Care Team (Late st Contact Info) Description 01/11/2025 Results Follow-Up [facility] [address], [address] [place] [address] [place] [address] [place] [address] [address] [place] [address] Social History Tobacco Use Types [...] Description 04/28/2025 9:40 AM EDT Office Visit [facility] Endocrinology [address] [place] [address] Jim Sierra MD [address] [facility] [address] [place] [address] documented as of this encounter Visit Diagnoses Not on filedocumented in this encounter Additional Health Concerns Assessment Noted Time A Body Mass Index follow-up plan has been documented for the patient 10/14/2024 9:16 AM EDT documented as of this encounter Care Teams Check Writer Relationship Specialty Start Date End Date Mandie Meng APRN [address] [id number] PCP - General 09/02/24 documented as of this encounter
--- OUTSIDE RECORDS SUMMARY | 2025-03-30 15:31 | XMS_ITS | Encounter Summary ---
Author Organization Healthcare Address [address] [place] [address] Care Team Providers Care Supervisor Hairspring Fabrication Name Role Phone Mandie Meng APRN Primary Care Provider +1- [phone] Encounter Details Date Type Department Care Team (Late Contact Info) Description 03/14/2025 Orders Only [facility] Endocrinology [address] [place] [address] Jim Sierra MD [address] [place] [address] [address] Social History Tobacco Use Types [...] Description 04/28/2025 9:40 AM EDT Office Visit [facility] Endocrinology [address] [place] [address] Jim Sierra MD 2[address] [facility] [address] [place] [address] documented as of this encounter Procedures Procedure [...] as of this encounter Care Teams Supervisor Hairspring Fabrication Relationship Specialty Start Date End Date Mandie Meng APRN [address] [place] [address] PCP - General 09/02/24 documented as of this encounter
--- OUTSIDE RECORDS SUMMARY | 2025-03-30 15:31 | XMS_ITS | Encounter Summary ---
Author Organization [facility] Address [address] [place] [address] Care Team Providers Care Control Panel Operator Name Role Phone Mandie Meng JEANNETTE Primary Care Provider +1- [phone] Reason for Visit * Reason Onset Date Comments HCN Clinical Concern/Question 02/01/2025 Encounter Details Date Type Department Care Team (Late st Contact Info) Description 02/01/2025 Telephone [facility] Endocrinology [address] [place] [address] Jim Sierra MD 2195 [facility] [address] [place] [address] HCN Clinical Concern/Question Social History [...] remain in normal range. Jim Sierra MD Missile Control Pilot of Endocrinology, Diabetes and Metabolism [facility] * Telephone Encounter - Marta Bennett RN [...] a CT scan that she had at [facility], that showed her thyroid was not visible. Best contact number: [phone] (home) Optimal time of day to reach caller: ANYTIME Additional comments/information from caller: None Note: Please do not reply to this message. Follow-up communication and further actions as a result of this message need to be communicated with the patient directly, if the patient is not active onMyChart. If the patient is active on MyChart, they will receive notification of the communication/outcome via [employer]. documented in this encounter Plan of Treatment Upcoming Encounters Date Type Department Care Team (Late st Contact Info) Description 04/28/2025 9:40 AM EDT Office [facility] [address] [place] [address] Jim Sierra MD [address] [place] [address] documented as of this encounter [...] documented as of this encounter Care Teams Control Panel Operator Relationship Specialty Start Date End Date Mandie Meng APRN [address] [place] [address] PCP - General 09/02/24 documented as of this encounter
--- OUTSIDE RECORDS SUMMARY | 2025-03-30 15:31 | XMS_ITS | Patient Health Record ---
Author Organization [facility] Address [address] [facility] [address] [place] [id number] Care Team Providers Care C T Tech Name Role Phone Shoaib Marin Unavailable [phone] Allergies Allergen (clinical drug ingredient) Drug/Non Drug [...] W/U Status Risk Notes Problem Acquired hypothyroidism (848467914) Acquired hypothyroidism (E03.9) Active confirmed Problem COPD - Chronic obstructive pulmonary disease (11939111) Chronic obstructive pulmonary disease, unspecified COPD type (J44.9) Active confirmed Problem Atherosclerotic heart disease of [place] coronary artery without angina pectoris (808755744777421) Coronary artery disease involving [place] coronary artery of [place] heart without angina pectoris (I25.10) Active confirmed Problem Hyperlipidaemia (75470836) Hyperlipidemia, unspecified hyperlipidemia type (E78.5) Active confirmed Problem Abnormal liver function (33021886) Abnormal liver function (K76.89) Active confirmed Problem Allergic rhinitis (05486900) Non-seasonal allergic rhinitis, unspecified trigger (J30.89) Active confirmed Problem Tobacco user (220036642) Nicotine dependence, uncomplicated, unspecified nicotine product type (F17.200) Active confirmed Problem Gastroesophageal reflux disease (806112067) Gastroesophageal reflux disease, unspecified whether esophagitis present (K21.9) Active confirmed Problem Primary hypertension (52746367) Primary hypertension (I10) Active confirmed Plan Of [...]
--- OUTSIDE RECORDS SUMMARY | 2025-03-30 15:32 | XMS_ITS | Clinical Summary ---
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) 03/14/2025 Orders Only [facility] Endocrinology [address] [place] [address] Jim Sierra MD 03/14/2025 Telephone [facility] Endocrinology [address] [place] [address] Jim Sierra MD HCN - Patient Message 02/01/2025 Telephone [facility] Endocrinology [address] [place] [address] Jim Sierra MD HCN Clinical Concern/Question 01/20/2025 10:40 AM EDT Office Visit [facility] Endocrinology [address] [place] [address] Jim Sierra MD 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) 01/20/2025 Travel 01/11/2025 Results Follow-Up [facility] Special[facility] Care Clinic [address], [address] [place] [address] Jim Sierra MD 01/11/2025 Travel from Last [...] 04/28/2025 9:40 AM EDT [facility] [address] [place] [address] Jim Sierra MD [address] [place] [address] Health Maintenance Due Date Last [...] - Risk 60-74 years 1-dose series) 2019 [id number] Vaccine ( - season) 2025 12/19/2021, 07/03/2021, [...] - 4.20 uIU/mL 01/11/2025 1:23 PM EDT [facility] Blood Venous blood specimen / Unknown Venipuncture / Unknown 01/11/2025 10:28 AM EDT 01/11/2025 10:28 AM EDT us Jim Sierra MD LAB BLOOD ORDERABLES Final R esult [facility] [address] [place] [address] * [place] Hepatitis C Antibody (02/23/2020 7:07 PM EDT) [place] Hepatitis C Ab NEGATIVE Reference Range: Negative [facility] 02/23/2020 7:07 PM EDT 02/23/2020 7:23 PM EDT us Yumiko Kimbrough MD LAB BLOOD ORDERABLES Final Re sult [facility] from Last 3 Months or Most Recently Relevant to Health Maintenance Insurance Care Teams Solar Installation Technician Relationship Specialty Start Date End Date Mandie Meng APRN [address] [place] [address] PCP - General 09/02/24
--- OUTSIDE RECORDS SUMMARY | 2025-03-30 15:32 | XMS_ITS | Encounter Summary ---
Author Organization Healthcare Address [address] [place] [address] Care Team Providers Care Correctional Supervisor Name Role Phone Mandie Meng APRN Primary Care Provider +1- [phone] Encounter Details Date Type Department Care Team (Late st Contact Info) Description 03/14/2025 Orders Only Professional [facility] Specialty [facility] [address], [address] [place] [address] Jim Sierra MD [address] [facility] [address] [place] [address] 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 [...] [facility] [address] [place] [address] Jim Sierra MD [address] [address] Scheduled Orders Name Type Priority [...] documented as of this encounter Care Teams Correctional Supervisor Relationship Specialty Start Date End Date Mandie Meng, JEANNETTE [address] [place] [address] PCP - General 09/02/24 documented as of this encounter
--- OUTSIDE RECORDS SUMMARY | 2025-03-30 15:32 | XMS_ITS | Encounter Summary ---
Author Organization Healthcare Address [address] [place] [address] Care Team Providers Care Adjunct Physics Instructor Name Role Phone Mandie Meng JEANNETTE Primary Care Provider +1- [phone] Encounter Details Date Type Department Care Team (Late st Contact Info) Description 03/14/2025 Results Follow-Up [facility] Endocrinology [address] [place] [address] Jim Sierra MD [address] [place] [address] Social History Tobacco Use Types [...] Visit [facility] [address] [place] [address] Jim Sierra MD [address] [place] [address] documented as of this encounter [...] documented as of this encounter Care Teams Adjunct Physics Instructor Relationship Specialty Start Date End Date Mandie Meng APRN [address] [place] [address] PCP - General 09/02/24 documented as of this encounter
--- OUTSIDE RECORDS SUMMARY | 2025-03-30 15:32 | XMS_ITS ---
Author Organization [facility] Address [address] [id number] Care Team Providers Care Lens Coating Technician Name Role Phone Mandie Meng APRN Primary Care Provider + [phone] Hyperlipidemia Status:Enrolled (Active) Start date:02/19/2024 Enrollment date:02/19/2024 Enrollment reason:New start at Current support & services provided:Clinical Assessment, Refill Coordination , Benefits Investigation, [facility] Dispensing Linked medications:Inclisiran Sodium (Active) Linked problems:Dyslipidemia (Active) Case Team Name Relationship Phone Airam Boogie PharmD(Responsible Staff) Pharmacis t [phone] Continued Care and Services Coordination
--- OUTSIDE RECORDS SUMMARY | 2025-03-30 15:32 | XMS_ITS | Clinical Summary ---
[facility] Organization [facility] Address [address] [place] [address] Care Team Providers Care Senior Analyst Developer Name Role Phone Mandie Meng APRN Primary Care Provider + [phone] Allergies Active Allergy Reactions Criticality Noted Date [...] Description 04/26/2025 1:30 PM EDT Office Visit [facility] CARD[facility] [address] [place] [address] Cabrera Phillips PA [address] [place] [address] 05/12/2025 12:00 PM EST Appointment [facility] C[facility] [address] [address] 05/26/2025 9:30 AM EST Office Visit [facility]EMAT[facility] & ONCOLOGY [address] [phone] Montana Goldberg MD [address] [facility] [place] [address] Health Maintenance Due Date Last Done Comments DXA SCAN 1959 MAMMOGRAM 1999 [place]UARD 12/23/2004 COLON CANCER SCREENING 5 YEA R SIGMOIDOSCOPY 12/23/2004 COLONOSCOPY 12/23/2004 COLORECTAL CANCER SCREENING 12/23/2004 CT COLONOGRAPHY 12/23/2004 FECAL OCCULT BLOOD TEST 12/23/2004 FIT Testing (1 year) 12/23/2004 Pneumococcal Vaccine 50+ (1 of 1 - PCV) 12/23/2009 ZOSTER VACCINE (1 of 2) 12/23/2009 ANNUAL WELLNESS VISIT 05/16/2019 INFLUENZA VACCINE 02/03/2025 COVID-19 Vaccine (5 - 2024-2 6 season) 2025 12/19/2021, 07/03/2021, 10/19/2020, Additional history exists LIPID PANEL 07/14/2025 07/14/2024, 06/18/2021 TDAP/TD VACCINES [...] 07/14/2024 11:58 PM EST [facility] Hep A IgM Non-Reacti ve Non-Reacti ve 07/14/2024 11:58 PM EST [facility] Hep B C IgM Non-Reacti ve Non-Reacti ve 07/14/2024 11:58 PM EST [facility] Hepatitis C Ab Non-Reacti ve Non-Reacti ve 07/14/2024 11:58 PM EST [facility] Blood Venipuncture / Unknown 07/14/2024 2:46 PM EST 07/14/2024 2:47 PM EST [facility] - 07/14/2024 11:58 PM EST Results may be falsely decreased if patient taking Biotin. Wilner Fish LAB BLOOD ORDERABLES F inal Result [facility]
[address] [place] [address], * (ABNORMAL) Lipid Panel (07/14/2024 2:46 PM EST) [facility] Total Cholesterol 125 0 - 200 mg/dL 07/14/2024 11:54 PM EST [facility] Triglycerides 173(H) 0 - 150 mg/dL 07/14/2024 11:54 PM EST [facility] HDL Cholesterol 42 40 - 60 mg/dL 07/14/2024 11:54 PM EST [facility] LDL Cholesterol 54 0 - 100 mg/dL 07/14/2024 11:54 PM EST [facility] VLDL Cholesterol 29 5 - 40 mg/dL 07/14/2024 11:54 PM EST [facility] LDL/HDL Ratio 1.15 07/14/2024 11:54 PM EST [facility] Blood Venipuncture / Unknown 07/14/2024 2:46 PM EST 07/14/2024 2:47 PM EST Narrative [facility] - 07/14/2024 11:54 PM EST [...] ORDERABLES Final R esult [facility]
[address] [place] [address], from Last 3 Months or Most Recently Relevant to Health Maintenance Insurance [facility] MEDICARE ADVANTAGE HMO Care Teams Senior Analyst Developer Relationship Specialty Start Date End Date Mandie Meng APRN [address] [place] [address] [address] PCP - General Internal Medicine 09/16/23
== END 2025-03-30 23:59 | disposition home or self-care (01) ==
LOC: RAD 15:14
PROVIDERS: PCP Nurse Practitioner Family; Visit Provider Internal Medicine Pulmonary Disease
DX: Z12.2 Encounter for screening for malignant neoplasm of respiratory organs (principal); R91.1 Solitary pulmonary nodule; Z87.891 Personal history of nicotine dependence
CPT/HCPCS: 71271

== ENCOUNTER 2025-04-25 12:15 | Outpatient (CLI) | payer MEDICARE, SELFPAY ==
--- OUTSIDE RECORDS SUMMARY | 2023-11-09 05:45 | XMS_ITS ---
Author Organization [facility] Address [address] [place] [address] PRESTON Potts [phone] Care Team Providers Care Composition Molder Name Role Phone Shoaib Marin Unavailable [phone] Allergies Allergen (clinical drug ingredient) Drug/Non Drug [...] Encounters Encounter Location Date Provider Diagnosis [facility] [address] [place] [address] PRESTON Potts [phone] 11/09/2023 Shoaib Marin Plan Of Treatment No Information Progress Notes * PARKERVALENTINOSOBIADANN MistryCHRISSYDOB:[birth year] (64 yo F)Acc No.[id number]:11/09/2023 Progress Notes Patient: SUELLEN WESTBROOK Provider: Char Marin M.D. :1960 A ge:62 Y S ex:Female Date:11/09/2023 Address:[address] [place], [place] [phone] Subjective: * Chief Complaints: * 1 . [...] Disc Disease. * Surgical History: [facility] Chest 1964, Cholecystectomy 1980, Colonoscopy 2020. [...] Electronic signature of Nahomi Marin MD on 04/25/2025 at 12:18 PM EDT Sign off status: Pending * Provider: Char Marin M.D. Date: 0 11/09/2023 Generated for Ivanna ibarra/April/eTransmitting on: 12:18 PM EDT History and Physical Notes * HPI (History of Present Illness) Category Sub-Category Detail Notes Category Not es Endocrinology Hypothyroidism Cardiology Blood Pressure Elevated Pt here for 6 mo f/u on hypertension, states she is doing well and does not have any concerns Hyperlipidemia pt is fasting today
--- OUTSIDE RECORDS SUMMARY | 2025-04-25 12:18 | XMS_ITS | Encounter Summary ---
Author Organization [facility] Address [address] [place] [address] Care Team Providers Care Freight Associate Name Role Phone MengMandie hess JEANNETTE Primary Care Provider +1- [phone] Reason for Visit * Reason Onset Date Comments HCN - Patient Message 03/14/2025 Encounter Details Date Type Department Care Team (Late st Contact Info) Description 03/14/2025 Telephone [facility] Endocrinology [address] [place] [address] Jim Sierra MD [address] [facility] [address] [place] [address] HCN - Patient Message Social [...] - 03/14/2025 11:03 AM EDT Contacted [facility] in [place] spoke with Sherrill in Medical Records to request lab results be faxed to our office . Monitor for lab results Marta Bennett, RN * Telephone Encounter - Carolina Summers - 03/14/2025 10:11 AM EDT Clinical Concern/Question Reason for Call: Patient had her lab work done this morning at [facility] in [place] Best contact number: [phone] (home) Optimal time of day to reach caller: ANYTIME Additional comments/information from caller: Note: Please do not reply to this message. Follow-up communication and further actions as a result of this message need to be communicated with the patient directly, if the patient is not active onMyChart. If the patient is active on MyChart, they will receive notification of the communication/outcome via [employer]. documented in this encounter Plan of Treatment Upcoming Encounters Date Type Department Care Team (Late st Contact Info) Description 04/28/2025 9:40 AM EDT [facility] [address] [place] [address] Jim Sierra MD [address] [facility] [address] [place] [address] documented as of this encounter [...] documented as of this encounter Care Teams Freight Associate Relationship Specialty Start Date End Date Mandie Meng APRN [address] [place] [address] PCP - General 09/02/24 documented as of this encounter
--- OUTSIDE RECORDS SUMMARY | 2025-04-25 12:18 | XMS_ITS | Patient Health Record ---
Author Organization [facility] Address [address] [facility] [address] [place] [address] Care Team Providers Care Literacy Teacher Name Role Phone Shoaib Marin Unavailable [phone] Allergies Allergen (clinical drug ingredient) Drug/Non Drug [...] W/U Status Risk Notes Problem Acquired hypothyroidism (170244741) Acquired hypothyroidism (E03.9) Active confirmed Problem COPD - Chronic obstructive pulmonary disease (29358522) Chronic obstructive pulmonary disease, unspecified COPD type (J44.9) Active confirmed Problem Atherosclerotic heart disease of [place] coronary artery without angina pectoris (524397451622957) Coronary artery disease involving [place] coronary artery of [place] heart without angina pectoris (I25.10) Active confirmed Problem Hyperlipidaemia (41647113) Hyperlipidemia, unspecified hyperlipidemia type (E78.5) Active confirmed Problem Abnormal liver function (45781669) Abnormal liver function (K76.89) Active confirmed Problem Allergic rhinitis (29588360) Non-seasonal allergic rhinitis, unspecified trigger (J30.89) Active confirmed Problem Tobacco user (571938381) Nicotine dependence, uncomplicated, unspecified nicotine product type (F17.200) Active confirmed Problem Gastroesophageal reflux disease (217938852) Gastroesophageal reflux disease, unspecified whether esophagitis present (K21.9) Active confirmed Problem Primary hypertension (67431636) Primary hypertension (I10) Active confirmed Plan Of [...]
--- OUTSIDE RECORDS SUMMARY | 2025-04-25 12:18 | XMS_ITS | Encounter Summary ---
Author Organization Healthcare Address [address] [place] [address] Care Team Providers Care Machine Stone Polisher Apprentice Name Role Phone Mandie Meng APRN Primary Care Provider +1- [phone] Encounter Details Date Type Department Care Team (Late Contact Info) Description 03/14/2025 Orders Only [facility] Endocrinology [address] [address] Jim Sierra MD [address] [address] Social History Tobacco Use Types [...] Description 04/28/2025 9:40 AM EDT Office Visit [facility] Endocrinology [address] [place] [address] Jim Sierra MD [address] [facility] [address] [place] [address] documented as of this encounter Procedures Procedure [...] documented as of this encounter Care Teams Machine Stone Polisher Apprentice Relationship Specialty Start Date End Date Mandie Meng APRN [address] [place] [address] PCP - General 09/02/24 documented as of this encounter
--- OUTSIDE RECORDS SUMMARY | 2025-04-25 12:19 | XMS_ITS | Clinical Summary ---
Author Organization [facility] Address [address] [place] [address] Care Team Providers Care Conference Specialist Name Role Phone Taqueria Mandieluisa Evans APRN Primary Care Provider +1- [phone] Allergies Active Allergy Reactions Criticality Noted Date [...] breakfast. Active levothyroxine (Synthroid, Levoxyl) 100 MCG tabletIndicatio ns:Hypothyroidi sm due to Roger thyroiditis Take 1 tablet by mouth daily. 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) 03/14/2025 Orders Only [facility] Endocrinology [address] [place] [address] Jim Sierra MD 03/14/2025 Telephone [facility] Endocrinology [address] [place] [address] Jim Sierra MD [facility] - Patient Message 02/01/2025 Telephone [facility] Endocrinology [address] [place] [address] Jim Sierra MD [facility] Clinical Concern/Question from Last 3 Months Social History Tobacco [...] Description 04/28/2025 9:40 AM EDT Office Visit [facility] Endocrinology [address] [place] [address] Jim Sierra MD [address] [place] [address] Health Maintenance Due Date Last [...] - Risk 60-74 years 1-dose series) 2019 [id number] Vaccine ( - 2024- season) 2025 12/19/2021, 07/03/2021, 10/19/2020, Additional history [...] T4, PLASMA Routine 03/14/2025 12:42 PM EDT HEPATITIS C ANTIBODY - ED W/REFLEX TO HCV QUANT PCR Routine 02/23/2020 7:07 PM EDT from Last 3 Months or Most Recently Relevant to Health Maintenance Results * Free T4, Plasma (03/14/2025 12:42 PM EDT) Blood Venous blood specimen / Unknown Jim Sierra MD LAB BLOOD ORDERABLES Final R esult * [place] Hepatitis C Antibody (02/23/2020 7:07 PM EDT) [place] Hepatitis C Ab NEGATIVE Reference Range: Negative SUNQUEST 02/23/2020 7:07 PM EDT 02/23/2020 7:23 PM EDT us Yumiko Kimbrough MD LAB BLOOD ORDERABLES Final Re sult SUNQUEST from Last 3 Months or Most Recently Relevant to Health Maintenance Insurance [employer] Care Teams Conference Specialist Relationship Specialty Start Date End Date Mandie Meng, JEANNETTE [address] [place] [address] PCP - General 09/02/24
--- OUTSIDE RECORDS SUMMARY | 2025-04-25 12:19 | XMS_ITS | Encounter Summary ---
Author Organization Healthcare Address [address] [place] [address] Care Team Providers Care Commercial Loan Officer Name Role Phone Mandie Meng JEANNETTE Primary Care Provider +1- [phone] Encounter Details Date Type Department Care Team (Late st Contact Info) Description 01/11/2025 Results Follow-Up [facility] [address], [address] [place] [address] [place] [address] [place] [address] [address] [place] [address] Social History Tobacco Use Types [...] [facility] Endocrinology [address] [place] [address] Jim Sierra MD [address] [facility] [address] [place] [address] documented as of this encounter Visit Diagnoses Not on filedocumented in this encounter Additional Health Concerns Assessment Noted Time A Body Mass Index follow-up plan has been documented for the patient 10/14/2024 9:16 AM EDT documented as of this encounter Care Teams Commercial Loan Officer Relationship Specialty Start Date End Date Mandie Meng APRN [address] [id number] PCP - General 09/02/24 documented as of this encounter
--- OUTSIDE RECORDS SUMMARY | 2025-04-25 12:19 | XMS_ITS | Encounter Summary ---
Author Organization Healthcare Address [address] [place] [address] Care Team Providers Care Acid Bath Mixer Name Role Phone Mandie Meng APRN Primary Care Provider +1- [phone] Encounter Details Date Type Department Care Team (Late st Contact Info) Description 03/14/2025 Orders Only [facility] [address], [address] [place] [address] Jim Sierra MD [address] [facility] [address] [place] [address] 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 [...] Visit [facility] [address] [place] [address] Jim Sierra MD [address] [address] Scheduled Orders Name Type Priority [...] documented as of this encounter Care Teams Acid Bath Mixer Relationship Specialty Start Date End Date Mandie Meng, JEANNETTE [address] [place] [address] PCP - General 09/02/24 documented as of this encounter
--- OUTSIDE RECORDS SUMMARY | 2025-04-25 12:19 | XMS_ITS | Encounter Summary ---
Author Organization Healthcare Address [address] [place] [address] Care Team Providers Care Construction Tech Name Role Phone Mandie Meng JEANNETTE Primary Care Provider +1- [phone] Encounter Details Date Type Department Care Team (Late st Contact Info) Description 03/14/2025 Results Follow-Up [facility] [address] [place] [address] Jim Sierra MD [address] [place] [address] Social History Tobacco Use Types [...] Visit [facility] [address] [place] [address] Jim Sierra MD [address] [place] [address] documented as of this encounter [...] documented as of this encounter Care Teams Construction Tech Relationship Specialty Start Date End Date Mandie Meng APRN [address] [place] [address] PCP - General 09/02/24 documented as of this encounter
[2025-04-25 13:48] LABS: Free T4 (Free Thyroxine) 1.41 ng/dl (0.78-2.19)
[2025-04-25 14:01] LABS: Thyroid Stimulating Hormone 0.95 uIU/mL (0.465-4.68)
== END 2025-04-25 23:59 | disposition home or self-care (01) ==
LOC: LAB 12:16
PROVIDERS: PCP Nurse Practitioner Family; Visit Provider Internal Medicine Endocrinology, Diabetes & Metabolism
DX: E06.3 Autoimmune thyroiditis (principal)
CPT/HCPCS: 36415; 84439; 84443